=== PATIENT | female | born 1950 | race Caucasian/White ===

== ENCOUNTER 2021-07-11 13:12 | Outpatient (REF) | payer MEDICARE, MEDICAID, SELFPAY ==
--- NOTE | ~2021-07-11 | MM_ITS ---
EXAMINATION: MM SCREENING DIGITAL BREAST TOMOSYNTHESIS, BILATERAL CLINICAL INFORMATION: Screening. Asymptomatic. The lifetime risk of breast cancer based on the Tyrer-Cuzick Model is 3%. COMPARISON: Mammography: 08/01/2018, 07/01/2017, 06/24/2016 TECHNIQUE: Digital breast tomosynthesis is performed in both the craniocaudal and mediolateral oblique views along with computer-aided detection (CAD). Synthesized 2D images are generated from the tomosynthesis. Additional left MLO view is provided. FINDINGS: There are scattered areas of fibroglandular density (ACR BI-RADS breast composition Category b). Parenchymal pattern is similar to prior exams. Parenchymal asymmetries are stable. There is no developing density or interval mass or architectural abnormality. No abnormal calcifications. The axilla and skin contours are unremarkable. MM/MM tomosynthesis screening BI IMPRESSION: No significant changes from prior studies. ASSESSMENT: BI-RADS 2: Benign RECOMMENDATION: Routine annual mammography screening. This patient's information was entered into a reminder system with a target due date for their next mammogram.
== END 2021-07-11 13:13 | disposition home or self-care (01) ==
LOC: HO.MAMMO 13:12
PROVIDERS: Visit Provider Family Medicine
DX: Z12.31 Encounter for screening mammogram for malignant neoplasm of breast (principal)
CPT/HCPCS: 77063; 77067

== ENCOUNTER 2021-12-30 09:35 | Outpatient (REF) | payer OTHER, MEDICAID, SELFPAY ==
--- NOTE | ~2021-12-30 | MR_ITS ---
EXAMINATION: MRI OF THE BRAIN WITHOUT CONTRAST CLINICAL INFORMATION: Mild cognitive impairment. COMPARISON: There are no prior studies available for comparison.. TECHNIQUE: MRI of the brain was obtained using routine sequences without contrast. FINDINGS: No diffusion abnormalities are identified to suggest an acute or subacute infarct. No mass effect or midline shift is seen. There is mild commensurate prominence of the ventricles and sulci consistent with diffuse volume loss. There are scattered areas of T2 and FLAIR hyperintense signal in the periventricular and subcortical white matter, and in the janett consistent with chronic microvascular ischemic changes. 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 No extra-axial fluid collections are seen. The cerebellum appears normal. No pathologic magnetic susceptibility artifact is identified on the gradient refocused acquisition. The craniovertebral junction, marrow signal, and midline structures are normal. There have been bilateral lens extractions. The major intracranial flow-voids at the level of the [place] of [place] are preserved. The dural venous sinus flow-voids are maintained. The mastoid air cells and the paranasal sinuses are well-aerated. MR/MR head/brain wo con IMPRESSION: 1. There are no acute bleeds or territorial infarcts. No masses are demonstrated. 2. 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 There is diffuse volume loss.
== END 2021-12-30 09:36 | disposition home or self-care (01) ==
LOC: HO.MRI 09:35
PROVIDERS: Visit Provider Family Medicine
DX: G31.84 Mild cognitive impairment of uncertain or unknown etiology (principal)
CPT/HCPCS: 70551

== ENCOUNTER 2022-05-21 16:06 | Outpatient (REF) | payer OTHER, MEDICAID, SELFPAY ==
[2022-05-21 17:14] LABS: Vitamin B12 287 pg/mL (200-900)
== END 2022-05-21 16:07 | disposition home or self-care (01) ==
LOC: HO.LAB 16:06
PROVIDERS: Visit Provider Psychiatry & Neurology Neurology
DX: G31.84 Mild cognitive impairment of uncertain or unknown etiology (principal)
CPT/HCPCS: 36415; 82607

== ENCOUNTER 2022-07-13 10:38 | Outpatient (REF) | payer OTHER, MEDICAID, SELFPAY ==
--- NOTE | ~2022-07-13 | MM_ITS ---
EXAMINATION: MM SCREENING DIGITAL BREAST TOMOSYNTHESIS, BILATERAL CLINICAL INFORMATION: Screening. Asymptomatic. COMPARISON: Mammography: 07/11/2021, 08/01/2018, 07/01/2017 TECHNIQUE: Digital breast tomosynthesis is performed in both the craniocaudal and mediolateral oblique views along with computer-aided detection (CAD). Synthesized 2D images are generated from the tomosynthesis. Additional bilateral MLO views are provided. FINDINGS: There are scattered areas of fibroglandular density (ACR BI-RADS breast composition Category b). There are no significant masses, abnormal calcifications, or other abnormalities. There are scattered parenchymal asymmetries similar to prior studies without developing density or interval architectural abnormality. The axilla and skin contours are unremarkable. No significant changes. MM/MM tomosynthesis screening BI IMPRESSION: No mammographic evidence of malignancy. ASSESSMENT: BI-RADS 2: Benign RECOMMENDATION: Routine annual mammography screening. This patient's information was entered into a reminder system with a target due date for their next mammogram.
== END 2022-07-13 10:39 | disposition home or self-care (01) ==
LOC: HO.MAMMO 10:38
PROVIDERS: PCP Family Medicine; Visit Provider Family Medicine
DX: Z12.31 Encounter for screening mammogram for malignant neoplasm of breast (principal)
CPT/HCPCS: 77063; 77067

== ENCOUNTER 2023-09-24 08:21 | Outpatient (REF) | payer OTHER, SELFPAY ==
[2023-09-24 12:13] LABS: Estimated Average Glucose 120 mg/dL; Hemoglobin A1c % 5.8 % (<6.0)
[2023-09-24 12:33] LABS: Alanine Aminotransferase 9 U/L (0-31); Alkaline Phosphatase 81 U/L (39-117); Anion Gap 15 (12-20); Aspartate Amino Transferase 14 U/L (5-31); Bilirubin Total 0.9 mg/dL (0.0-1.0); Blood Urea Nitrogen 16 mg/dL (9-16); Calcium 9.4 mg/dL (8.4-10.2); Carbon Dioxide 29 mmol/L (22-29); Chloride 103 mmol/L (96-108); Cholesterol 187 mg/dL (<200); Estimated Glomerular Filt Rate > 60; Glucose Random 108 mg/dL (60-115); HDL Cholesterol 50 mg/dL (>40); LDL Cholesterol Calculated 97 mg/dL (<100); Potassium 3.8 mmol/L (3.3-5.1); Sodium 143 mmol/L (135-145); Total Protein 7.4 g/dL (6.5-8.0); Triglycerides 201 mg/dL (<150)
[2023-09-24 12:35] LABS: TSH reflex Free T4 2.56 uIU/mL (0.32-4.0)
== END 2023-09-24 08:22 | disposition home or self-care (01) ==
LOC: HO.HHCL 08:21
PROVIDERS: Visit Provider Family Medicine
DX: I10 Essential (primary) hypertension (principal); R73.01 Impaired fasting glucose
CPT/HCPCS: 36415; 80053; 80061; 83036; 84443

== ENCOUNTER 2024-01-13 15:56 | Outpatient (REF) | payer OTHER, SELFPAY | END 2024-01-13 15:57 | disposition home or self-care (01) | LOC: HO.MAMMO 15:56 | PROVIDERS: PCP Family Medicine; Visit Provider Family Medicine | DX: Z12.31 Encounter for screening mammogram for malignant neoplasm of breast (principal) | CPT/HCPCS: 77063; 77067 ==

== ENCOUNTER → 2024-01-13 16:15 | Outpatient (BNV) | payer OTHER, SELFPAY | PROVIDERS: PCP Family Medicine; Visit Provider Radiology Diagnostic Radiology | DX: Z12.31 Encounter for screening mammogram for malignant neoplasm of breast (principal) | CPT/HCPCS: 77063; 77067 ==

== ENCOUNTER 2024-05-09 15:41 | Outpatient (REF) | payer OTHER, SELFPAY ==
[2024-05-09 18:39] LABS: Alanine Aminotransferase 13 U/L (0-31); Albumin Level 3.9 g/dL (3.5-5.0); Alkaline Phosphatase 78 U/L (39-117); Anion Gap 12 (12-20); Aspartate Amino Transferase 18 U/L (5-31); Bilirubin Direct 0.2 mg/dL (0.0-0.5); Bilirubin Total 0.8 mg/dL (0.0-1.0); Blood Urea Nitrogen 12 mg/dL (9-16); Carbon Dioxide 26 mmol/L (22-29); Chloride 108 mmol/L (96-108); Cholesterol 158 mg/dL (<200); Estimated Glomerular Filt Rate > 60; Glucose Random 90 mg/dL (60-115); HDL Cholesterol 50 mg/dL (>40); LDL Cholesterol Calculated 85 mg/dL (<100); Potassium 3.5 mmol/L (3.3-5.1); Sodium 142 mmol/L (135-145); Total Protein 6.8 g/dL (6.5-8.0); Triglycerides 116 mg/dL (<150)
[2024-05-09 18:55] LABS: TSH reflex Free T4 2.15 uIU/mL (0.32-4.0)
[2024-05-09 20:30] LABS: Reflex LDLD? No
[2024-05-10 05:17] LABS: Estimated Average Glucose 128 mg/dL; Hemoglobin A1c % 6.1 % (<6.0)
== END 2024-05-09 15:42 | disposition home or self-care (01) ==
LOC: HO.HHCL 15:41
PROVIDERS: Visit Provider Family Medicine
DX: E78.5 Hyperlipidemia, unspecified (principal); I10 Essential (primary) hypertension; Z13.1 Encounter for screening for diabetes mellitus; I48.0 Paroxysmal atrial fibrillation
CPT/HCPCS: 36415; 80053; 80061; 82248; 83036; 84443

== ENCOUNTER 2024-11-16 11:35 | Outpatient (REF) | payer OTHER, SELFPAY ==
[2024-11-16 13:46] LABS: Alanine Aminotransferase 13 U/L (0-31); Albumin Level 4.2 g/dL (3.5-5.0); Alkaline Phosphatase 98 U/L (39-117); Anion Gap 12 (12-20); Aspartate Amino Transferase 21 U/L (5-31); Bilirubin Total 1.7 mg/dL (0.0-1.0); Blood Urea Nitrogen 18 mg/dL (9-16); Calcium 9.3 mg/dL (8.4-10.2); Carbon Dioxide 29 mmol/L (22-29); Chloride 104 mmol/L (96-108); Cholesterol 118 mg/dL (<200); Estimated Glomerular Filt Rate > 60; Glucose Random 119 mg/dL (60-115); HDL Cholesterol 56 mg/dL (>40); LDL Cholesterol Calculated 45 mg/dL (<100); Potassium 3.2 mmol/L (3.3-5.1); Sodium 142 mmol/L (135-145); Total Protein 7.8 g/dL (6.5-8.0); Triglycerides 89 mg/dL (<150)
[2024-11-16 14:10] LABS: Reflex LDLD? No
== END 2024-11-16 11:36 | disposition home or self-care (01) ==
LOC: HO.HHCL 11:35
PROVIDERS: Visit Provider Family Medicine
DX: E78.5 Hyperlipidemia, unspecified (principal)
CPT/HCPCS: 36415; 80053; 80061

== ENCOUNTER 2024-11-27 12:11 | Outpatient (REF) | payer OTHER, SELFPAY ==
--- OUTSIDE RECORDS SUMMARY | 2024-11-27 13:51 | XMS_ITS | Encounter Summary ---
Author Organization [employer] Address [address] [place] [address] Care Team Providers Care Senior Business Manager Name Role Phone Lisa Hagen MD Primary Care Provider [phone] Selwyn Crowley PharmD Unavailable [phone] Reason for Visit * Reason Onset Date Comments Results 11/27/2024 Lab Orders 11/27/2024 Encounter Details Date Type Department Care Team (Late st Contact Info) Description 11/27/2024 Telephone [facility] [address] [place] [address] Anneliese Hunter, RN [address], [place] [id number] Results; Lab Orders Social History Tobacco Use Types Packs/Day Years Used Date Smoking Tobacco: Never Passive Smoke Exposure: Never Smokeless Tobacco: Never Depression Answer Date Recorded Patient Health Questionnaire-9 Score 0 08/10/2024 Patient Health Questionnaire-9 Score 0 08/10/2024 Last PHQ-9: Questionnaire Data Not on file 1 10/11/2023 Housing Stability Answer Date Recorded What is your housing situation today? I have [employer] [facility] 01/11/[address] you li ve. Do you have problems with any of the following? None of the above 01/11/2024 Food Insecurity Answer Date Recorded Within the past 12 months, y ou worried that your food would run out before you got money to buy more: Never True 01/11/2024 Within the past 12 months,th e food you bought just didn't last and you didn't have enough money to get more: Never True Transportation Answer Date Recorded In the past 12 months, has l ack of transportation kept you from medical appts, meetings, work or from getting things needed for daily living? No 01/11/2024 Utilities Answer Date Recorded In the past 12 months, has t he electric, gas, oil or water company threatened to shut off services in your home? No 01/11/2024 Depression Answer Date Recorded Patient Health Questionnaire-2 Score 0 08/10/2024 Comments No Sex and Gender Information Value Date Recorded Sex Assigned at Female 06/29/2022 10:16 AM EDT Legal Sex Female 10:16 AM EDT Gender Identity Female 06/29/2022 10:16 AM EDT Sexual Orientation Straight 06/29/2022 10 :16 AM EDT documented as of this encounter Miscellaneous Notes * Telephone Encounter - Anneliese Hunter RN - 11/27/2024 10:02 AM EDT Telephone call placed to number on file regarding below results and POC. Pt's son-in-law answered. Informed that he is not authorized on HIPAA. He was very upset about this. Handed phone to his spouse who is emergency contact for pt and okay to speak to per PCP. Informed that pt needs repeat labs d/t low potassium. Advised increased intake of potassium rich foods like avocados, tomatoes, bananas,etc. Advised to come to the lab this week. Daughter Cindi inquiring about who is on HIPAA, she wantsher sisters listed as well as her . Advised when they bring pt for labs, come up to green team and fill out new HIPAA form with everyone pt agrees to have added. Cindi verbalized understanding and denied having any further questions or concerns at this time. * Telephone Encounter - Anneliese Hunter RN - 11/27/2024 9:51 AM EDT ----- Message from Lisa Hagen MD sent at 11/27/2024 9:44 AM EDT ----- Please ask patient's family that her potassium was slightly low, likely due to medication. Please ask her to have another lab on their convenience. Thank you. documented in this encounter Plan of Treatment Not on file documented as of this encounter Goals Goal Patient Goal Type Associated Problems Recent Progress Patient-Stated? Author Blood Pressure < 150/90 Blood Pressure 124/72(2024 11:01 AM EDT) No Selwyn Crowley, Vinicius Note: >60 years old without Hx of CKD or DM documented as of this encounter Visit Diagnoses Not on filedocumented in this encounter Additional Health Concerns Assessment Noted Time PHQ-9 Depression Total Score: 0 08/10/20 24 10:16 AM EST documented as of this encounter Care Teams Senior Business Manager Relationship Specialty Start Date End Date Lisa Hagen MD [address] [place] [address] PCP - General Family Medicine 08/11/12 Selwyn Crowley, PharmD [address] [place] [id number] Pharmacist Internal Medicine 11/06/22 documented as of this encounter
--- OUTSIDE RECORDS SUMMARY | 2024-11-27 13:51 | XMS_ITS | Clinical Summary ---
Author Organization [employer] Address [address] [place] [address] Care Team Providers Care Nurse Charge Rn Name Role Phone Luis Eduardo Hagen MD Primary Care Provider [phone] Selwyn Crowley PharmD Unavailable Allergies Active Allergy Reactions Criticality Noted Date Comments Clarithromycin Hives High 09/26/2014 Hylan G-F 20 Hives High 07/15/2015 Lisinopril 04/07/2013 Medications * This document contains information received from the source organization and may not represent a complete record from that organization. donepezil (Aricept) 10 MG tablet Take 10 mg by mouth at bedtime. 06/17/20 22 Active Xarelto 20 MG tablet Take 20 mg by mouth in the morning. 07/17/20 22 Active Acetaminophen Extra Strength 500 MG tablet TAKE 2 TABLETS BY MOUTH EVERY 8 HOURS NEEDED FOR PAIN 180 tablet 2 10/01/19 24 Active memantine (Namenda) 10 MG tablet TAKE 1 TABLET BY MOUTH ONCE DAILY FOR 3 WEEKS THEN INCREASE TO 1 TABLET TWICE DAILY 10/04/19 24 Active metoprolol succinate XL (Toprol-XL) 50 MG 24 hr tablet TAKE 1 TABLET BY MOUTH EVERY MORNING 08/27/20 23 Active cyclobenzaprine (Flexeril) 10 MG tabletIndication s:Muscle spasm TAKE 1 TABLET BY MOUTH EVERY DAY 30 tablet 3 02/07/20 24 Active bumetanide (Bumex) 0.5 MG tablet Take 1 tablet (0.5 mg) by mouth Once per day. 30 tablet 11 05/09/20 24 025 Active sertraline (Zoloft) 50 MG tablet Take 50 mg by mouth Once per day. 04/05/20 24 Active atorvastatin (Lipitor) 20 MG tablet Take 1 tablet (20 mg) by mouth at bedtime. 90 tablet 3 08/10/20 24 025 Active chlorthalidone (Hygroton) 25 MG tabletIndication s:Primary hypertension TAKE 1 TABLET BY MOUTH EVERY MORNING 30 tablet 11 08/14/20 24 Active D3-1000 25 MCG (1000 UT) capsuleIndicatio ns:Vitamin D deficiency TAKE 1 CAPSULE BY MOUTH EVERY MORNING 30 capsule 11 11/09/19 25 Active cholecalciferol (Vitamin D High Potency) 25 MCG (1000 UT) capsuleIndicatio ns:Vitamin D deficiency Take 1 capsule (25 mcg) by mouth in the morning. 30 capsule 11 10/19/19 24 025 Discontinued Active Problems Problem Noted Date Diagnosed Date Ascending aorta dilation 05/09/2024 Assessment & Plan (11/17/2024 8:06 PM EDT): - Following with [facility] - Last transthoracic echocardiogram: 04/11/24. Maximum diameter of ascending aorta 43 mm - Next echo in 1 year - optimize risk factor management Assessment & Plan (08/12/2024 4:22 PM EST): - Following with [facility] - Last transthoracic echocardiogram: 04/11/24. Maximum diameter of ascending aorta 43 mm - Next echo in 1 year - optimize risk factor management Assessment & Plan (05/09/2024 5:32 AM EDT): - Following with [facility] - Last transthoracic echocardiogram: 04/11/24. Maximum diameter of ascending aorta 43 mm - Next echo in 1 year - optimize risk factor management (HFpEF) heart failure with preserved ejection fr action 05/09/2024 Assessment & Plan (11/17/2024 8:06 PM EDT): - Most recent echo: 04/11/24 Moderate concentric LVH, Left ventricular systolic EF 50-55%, mild thickening of anterior mitral valve, Ascending aorta 4.3 cm. Normal right ventricular systolic function. - Encourage CPAP use - Recommended to check her weight and vitals daily - Consider SGLT2i and/or MRA (taper down and off chlorthalidone or bumetanide, consider switching to carvedilol) Assessment & Plan (08/12/2024 4:35 PM EST): - Most recent echo: 04/11/24 Moderate concentric LVH, Left ventricular systolic EF 50-55%, mild thickening of anterior mitral valve, Ascending aorta 4.3 cm. Normal right ventricular systolic function. - Encourage CPAP use - Recommended to check her weight and vitals daily - Consider SGLT2i and/or MRA (taper down and off chlorthalidone or bumetanide, consider switching to carvedilol) Assessment & Plan (05/15/2024 6:22 AM EDT): - Most recent echo: 04/11/24 Moderate concentric LVH, Left ventricular systolic EF 50-55%, mild thickening of anterior mitral valve, Ascending aorta 4.3 cm. Normal right ventricular systolic function. - Encourage CPAP use - Recommended to check her weight and vitals daily Dyslipidemia 01/18/2024 Assessment & Plan (11/19/2024 4:40 PM EDT): - last lipid profile October 2024 - moderate intensity statin therapy is recommended per guideline - continue atorvastatin 20 mg at bedtime, consider increasing to 40 mg daily as tolerated - continue working on lifestyle modifications Assessment & Plan (08/12/2024 4:31 PM EST): - last lipid profile August 2023 - moderate intensity statin therapy is recommended per guideline - increase atorvastatin 20 mg at bedtime, consider increasing to 40 mg daily as tolerated - continue working on lifestyle modifications Assessment & Plan (05/15/2024 6:20 AM EDT): - last lipid profile August 2023 - moderate intensity statin therapy is recommended per guideline - continue atorvastatin 10 mg at bedtime, consider increasing its dose due to her risk factors - continue working on lifestyle modifications Assessment & Plan (01/18/2024 3:53 PM EDT): - last lipid profile August 2023 - moderate intensity statin therapy is recommended per guideline - start atorvastatin 10 mg at bedtime, will check lab before next appointment - continue working on lifestyle modifications Headache 10/01/2023 Assessment & Plan (05/15/2024 6:16 AM EDT): - in a setting of ERA - possible medication side effect - Normal MRI in 2021 - Check the status of next follow up with neurologist and [facility] provider - Continue APAP prn Assessment & Plan (01/18/2024 3:39 PM EDT): - in a setting of ERA - possible medication side effect - Normal MRI in 2021 - Check the status of next follow up with neurologist and [facility] provider - Continue APAP prn Assessment & Plan (10/01/2023 11:36 AM EST): - in a setting of ERA - possible medication side effect - Normal MRI in 2021 - Check the status of next follow up with neurologist and [facility] provider - Continue APAP prn Mixed stress and urge urinary incontinence 03/26 Assessment & Plan (01/25/2024 10:51 AM EDT): - pt is using incontinence supply - will renew her previous prescription Assessment & Plan (03/26/2023 6:40 AM EDT): - pt is using incontinence supply Depression 03/26/2023 Assessment & Plan (08/12/2024 4:32 PM EST): - 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 - continue sertraline 50 mg daily - increase TEST PILOT hours to prevent isolation Assessment & Plan (05/15/2024 6:20 AM EDT): - 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 -continue metoprolol succinate 50 mg daily -continue chlorthalidone 25 mg daily -continue bumetanide 0.5 mg daily for edema and hypertension; consider titrating up and discontinuing chlorthalidone. Treatment Hx: Previously tried amlodipine which was discontinued due to swelling, losartan was discontinued due to pt's concern about recall, lisinopril was discontinued due to cough. Diltiazem 180 mg daily was discontinued and metoprolol was started by compressor mechanic bus in 2022. Bumetanide was added in Apr 2024 Graduated from [facility] - HTN Assessment & Plan (08/10/2024 6:05 AM EST): -Goal BP < 130/80 per ACC/AHA guideline (Treatment threshold >= 130) -BP at JNC-8 goal today -co-managed with compressor mechanic bus and previously our pharmacist -continue working on lifestyle modification. -continue metoprolol succinate 50 mg daily -continue chlorthalidone 25 mg daily -continue bumetanide 0.5 mg daily for edema and hypertension; consider titrating up and discontinuing chlorthalidone. Treatment Hx: Previously tried amlodipine which was discontinued due to swelling, losartan was discontinued due to pt's concern about recall, lisinopril was discontinued due to cough. Diltiazem 180 mg daily was discontinued and metoprolol was started by compressor mechanic bus in 2022. Bumetanide was added in Apr 2024 Graduated from [facility] - HTN Assessment & Plan (05/15/2024 6:18 AM EDT): -Goal BP < 150/90 per JNC-8 and < 130/80 per ACC/AHA guideline (Treatment threshold >= 130) -BP at JNC-8 goal today -continue working on lifestyle modification. -continue diltiazem 180 mg daily -continue chlorthalidone 25 mg daily - add bumetanide 0.5 mg daily for edema and hypertension; consider titrating up and discontinuing chlorthalidone. -seen by Selwyn Crowley, [facility] on 10/25/23 for CDTM - HTN Treatment Hx: Previously tried amlodipine which was discontinued due to swelling, losartan was discontinued due to pt's concern about recall, lisinopril was discontinued due to cough --Follow-up in 3 months or sooner if any problem arises Assessment & Plan (01/18/2024 5:01 PM EDT): -Goal BP < 150/90 per JNC-8 and < 130/80 per ACC/AHA guideline (Treatment threshold >= 130) -BP at JNC-8 goal today -continue working on lifestyle modification. -continue diltiazem 180 mg daily -continue [facility]orthalidone 25 mg daily [facility]N Treatment Hx: Previously tried amlodipine which was discontinued due to swelling, losartan was discontinued due to pt's concern about recall, lisinopril was discontinued due to cough --Follow-up in 3 months or sooner if any problem arises Assessment & Plan (10/01/2023 11:25 AM EST): -Goal BP < 150/90 per JNC-8 and < 130/80 per ACC/AHA guideline (Treatment threshold >= 130) -BP at JNC-8 goal today -continue working on lifestyle modification. -continue diltiazem 180 mg daily -continue [facility]lorthalidone 25 mg daily [facility] - HTN Treatment Hx: Previously tried amlodipine which was discontinued due to swelling, losartan was discontinued due to pt's concern about recall, lisinopril was discontinued due to cough --Follow-up in 3 months or sooner if any problem arises Assessment & Plan (03/26/2023 6:45 AM EDT): -Goal BP < 150/90 per JNC-8 and < 130/80 per ACC/AHA guideline (Treatment threshold >= 130) -BP at JNC-8 goal today -continue working on lifestyle modification. -continue diltiazem 180 mg daily -continue chlorthalidone 25 mg daily [facility]N Previously tried amlodipine which was discontinued due to swelling, losartan was discontinued due to pt's concern about recall, lisinopril was discontinued due to cough --Follow-up in 3 months or sooner if any problem arises Assessment & Plan (11/22/2022 7:11 AM EDT): -Goal BP < 150/90 per JNC-8 and < 130/80 per ACC/AHA guideline (Treatment threshold >= 130) -BP at JNC-8 goal today -continue working on lifestyle modification. -continue diltiazem 180 mg daily -continue chlorthalidone 25 mg daily -seen by Selwyn Crowley, [facility] on 11/06/22 for CDTM - HTN Previously tried amlodipine which was discontinued due to swelling, losartan was discontinued due to pt's concern about recall, lisinopril was discontinued due to cough --Follow-up in 3 months or sooner if any problem arises ERA (obstructive sleep apnea) 08/09/2022 Assessment & Plan (11/19/2024 4:33 PM EDT): - Sleep study on 06/08/22 at [facility] showed ERA. AutoPAP 8-20 cm H2O was recommended. - Seen by Dr. Cavazos on 02/03/23, [facility] diamond die maker. Recommended CPAP. - Patient was not interested in using CPAP - Will prescribe it again. Assessment & Plan (08/12/2024 4:21 PM EST): - Sleep study on 06/08/22 at [facility] showed ERA. AutoPAP 8-20 cm H2O was recommended. - Seen by Dr. Cavazos on 02/03/23, [facility] diamond die maker. Recommended CPAP. - Patient is not interested in using CPAP Assessment & Plan (05/15/2024 6:15 AM EDT): - Sleep study on 06/08/22 at [facility] showed ERA. AutoPAP 8-20 cm H2O was recommended. - Seen by Dr. Cavazos on 02/03/23 Assessment & Plan (10/01/2023 11:24 AM EST): - Sleep study on 06/08/22 at [facility] showed ERA. AutoPAP 8-20 cm H2O was recommended. - Seen by Dr. Cavazos on 02/03/23 - Called [facility], the office states the order was delayed, but the script has already been received by CPAP supplier Assessment & Plan (03/26/2023 6:49 AM EDT): - Sleep study on 06/08/22 at [facility] showed ERA. AutoPAP 8-20 cm H2O was recommended. - Seen by Dr. Cavazos on 02/03/23 - [facility] the office states the order was delayed, but the script has already been received by CPAP supplier Assessment & Plan (11/22/2022 7:13 AM EDT): Sleep study on 06/08/22 at [facility] showed ERA. AutoPAP 8-20 cm H2O was recommended. Pt does not have CPAP. Will check the status Her HALEY may improve with CPAP use Paroxysmal atrial fibrillation 08/09/2022 Assessment & Plan (11/19/2024 4:37 PM EDT): -Followed by [facility] - [id number] Score: 4 -Currently on Rivaroxaban (Xarelto) for anticoagulation -Metoprolol for BP and rate control -Continue current medications -Most recent echo: 04/11/24 Moderate concentric LVH, Left ventricular systolic EF 50-55%, mild thickening of anterior mitral valve, normal RV and RA -Encouraged to use CPAP, but patient is not enthusiastic Assessment & Plan (08/10/2024 6:12 AM EST): -Followed by [facility] -[id number] Score: 4 -Currently on Rivaroxaban (Xarelto) for anticoagulation -Metoprolol for BP and rate control -Continue current medications -Most recent echo: 04/11/24 Moderate concentric LVH, Left ventricular systolic EF 50-55%, mild thickening of anterior mitral valve, normal RV and RA -Encouraged to use CPAP, but patient is not enthusiastic Assessment & Plan (05/15/2024 6:17 AM EDT): -Followed by [facility] -Currently on Rivaroxaban (Xarelto) for anticoagulation -Diltiazem for BP and rate control -Continue current medications -Most recent echo: 04/11/24 Moderate concentric LVH, Left ventricular systolic EF 50-55%, mild thickening of anterior mitral valve, normal RV and RA -Encouraged to use CPAP, but patient is not enthusiastic Assessment & Plan (01/18/2024 3:39 PM EDT): -Followed by [facility] -Currently on Rivaroxaban (Xarelto) for anticoagulation -Diltiazem for BP and rate control -Continue current medications -Encouraged to use CPAP once she receives the supply Assessment & Plan (10/01/2023 11:26 AM EST): -Followed by [facility] -Currently on Rivaroxaban (Xarelto) for anticoagulation -Diltiazem for BP and rate control -Continue current medications -Encouraged to use CPAP once she receives the supply Assessment & Plan (03/26/2023 6:51 AM EDT): -Followed by Dr. Palomo at [facility] on 03/16/22. -Currently on Rivaroxaban (Xarelto) for anticoagulation -Diltiazem for BP and rate control -Continue current medications -Encouraged to use CPAP once she receives the supply Assessment & Plan (11/17/2022 2:50 PM EDT): Completed Stress-Test and Echocardiogram -Followed by Dr. Palomo at [facility] on 03/16/22. -Pt was found to have paroxysmal atrial fibrillation and was started on Rivaroxaban (Xarelto) -Dr. Palomo ordered a Sleep Study Alzheimer's dementia 08/09/2022 Assessment & Plan (11/19/2024 4:33 PM EDT): - following with neurologist, Dr. Leavitt, last seen on 07/06/24 - 12/30/21 MRI no acute infarct or mass. Chronic microvascular ischemic change. Diffuse volume loss. - currently prescribed sertraline 10 mg daily, memantine 10 mg bid, and sertraline 50 mg daily - patient is socially withdrawn. - we discussed about several non-pharmacological approaches, and encouraged to keep her socially interactive - her family members would like to have more TEST PILOT hours because patient currently has 17 hours per week, and it is not adequate to take care of the patient. She is alone when TEST PILOT leaves. Patient will benefit from more TEST PILOT services to prevent social isolation and to improve safety by increasing supervised hours. Assessment & Plan (08/12/2024 4:30 PM EST): >>ASSESSMENT AND PLAN FOR MILD COGNITIVE IMPAIRMENT WRITTEN ON 11/17/2022 2:51 PM BY LAWSON REYES -12/30/21 MRI no acute infarct or mass. Chronic microvascular ischemic change. Diffuse volume loss. -Seen by Neurologist -was Rx'd Sertraline and Donepezil Assessment & Plan (08/12/2024 4:30 PM EST): >>ASSESSMENT AND PLAN FOR MILD COGNITIVE IMPAIRMENT WRITTEN ON 03/26/2023 6:47 AM BY LUIS EDUARDO HAGEN MD -12/30/21 MRI no acute infarct or mass. Chronic microvascular ischemic change. Diffuse volume loss. 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 Chronic microvascular ischemic change. Diffuse volume loss. 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 Assessment & Plan (08/12/2024 4:30 PM EST): >>ASSESSMENT AND PLAN FOR MILD COGNITIVE IMPAIRMENT WRITTEN ON 01/18/2024 3:39 PM BY RAMONA NAJERA -12/30/21 MRI no acute infarct or mass. Chronic microvascular ischemic change. Diffuse volume loss. 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 Assessment & Plan (08/12/2024 4:30 PM EST): >>ASSESSMENT AND PLAN FOR MILD COGNITIVE IMPAIRMENT WRITTEN ON 05/09/2024 5:37 AM BY LUIS EDUARDO HAGEN MD -12/30/21 MRI no acute infarct or mass. Chronic microvascular ischemic change. Diffuse volume loss. 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 Assessment & Plan (08/12/2024 4:34 PM EST): - following with neurologist, Dr. Leavitt, last seen on 07/06/24 - 12/30/21 MRI no acute infarct or mass. Chronic microvascular ischemic change. Diffuse volume loss. - currently prescribed sertraline 10 mg daily, memantine 10 mg bid, and sertraline 50 mg daily - patient is socially withdrawn. - we discussed about several non-pharmacological approaches, and encouraged to keep her socially interactive - her family members would like to have more TEST PILOT hours because patient currently has 17 hours per week, and it is not adequate to take care of the patient. She is alone when TEST PILOT leaves. Patient will benefit from more TEST PILOT services to prevent social isolation and to improve safety by increasing supervised hours. History of cholecystectomy 09/11/2014 Osteoarthritis of knees, bilateral 10/25/2012 Assessment & Plan (05/15/2024 6:19 AM EDT): s/p Right TKR in Apr 2016. s/p Left TKR on 04/28/18 Orthopedist: [facility] -Continue judicious use of analgesics. -Previously received physical therapy Assessment & Plan (03/26/2023 6:44 AM EDT): s/p Right TKR in Apr 2016. s/p Left TKR on 04/28/18 Orthopedist: VICKI -Continue judicious use of analgesics. -Previously received physical therapy Assessment & Plan (11/17/2022 2:42 PM EDT): s/p Right TKR in Apr 2016. s/p Left TKR on 04/28/18 Orthopedist: VICKI -Continue judicious use of analgesics. -Continue physical therapy. -Not following with Orthopedist or any Specialists Insomnia 10/25/2012 Lumbar spondylosis 10/25/2012 Obesity 10/25/2012 Assessment & Plan (11/19/2024 4:39 PM EDT): - discussed about GLP-1 RA; patient is not interested Continue working on lifestyle modifications. Generic advice as below. Modify for individualized plan and work on your health goal. Dietary Recommendations: Fruits, vegetables, whole grains, protein foods, and fat-free or low-fat dairy products are healthy choices. Eat different types of protein foods in your diet. This can include seafood, lean meats, poultry, beans, peas, lentils, nuts, seeds, soy products, and eggs. Limit foods and beverages higher in added sugars, saturated fat, and sodium. Exercise Recommendations: At least 150 minutes of moderate-intensity physical activity per week, or an equivalent combination of moderate- and vigorous-intensity activity Assessment & Plan (08/13/2024 11:17 AM EST): - discussed about GLP-1 RA; patient is not interested - she has gained significant amount of weight over last 3 years - check TSH - will write a script for a scale so that she can check her weight Assessment & Plan (05/15/2024 6:21 AM EDT): - discussed about GLP-1 RA; patient is not interested - she has gained significant amount of weight over last 3 years - check TSH - will write a script for a scale so that she can check her weight Endocervical polyp 03/19/2010 Impaired fasting glucose Assessment & Plan (11/17/2024 8:08 PM EDT): -Hgb A1C 6.1% on 05/09/24 -continue lifestyle modifications -recheck in 12 months Assessment & Plan (08/12/2024 4:23 PM EST): -Hgb A1C 5.8% on 01/18/24 -continue lifestyle modifications -recheck in 12 months Assessment & Plan (01/18/2024 5:01 PM EDT): -Hgb A1C 5.8% on 01/18/24 -continue lifestyle modifications -recheck in 12 months Assessment & Plan (10/01/2023 11:26 AM EST): -Hgb A1C 5.6% on 11/17/22, improved from 6.0% on 11/18/21 -continue lifestyle modifications -recheck in 12 months Assessment & Plan (03/26/2023 6:44 AM EDT): -Hgb A1C 5.6% on 11/17/22, improved from 6.0% on 11/18/21 -continue lifestyle modifications -recheck in 12 months Assessment & Plan (11/17/2022 2:43 PM EDT): -HbA1C 6.0% on 11/18/21 -continue lifestyle modifications -recheck in 6 months prior to next visit Resolved Problems Problem Noted Date Diagnosed Date Resolved Date Primary osteoarthritis of both knees 07/15/2015 03/26/2023 Essential hypertension 07/15/201503/26 Encounters Date Type Department Care Team Description 11/27/2024 Telephone [facility] [place] [address] Anneliese Hunter, RN Results; Lab Orders 11/27/2024 Orders Only [facility] [place] [address] Luis Eduardo Hagen MD Low serum potassium (Primary Dx) 11/20/2024 Telephone [facility] [place] [address] Anneliese Hunter, RN Care Coordination 11/16/2024 11:00 AM EDT Office Visit [facility] [place] [address] Luis Eduardo Hagen MD Primary hypertension (Primary Dx); Paroxysmal atrial fibrillation (CMS/HCC); Ascending aorta dilation (CMS/HCC); Chronic heart failure with preserved ejection fraction (CMS/HCC); Impaired fasting glucose; Dyslipidemia; Dietary counseling; Exercise counseling; Class 1 obesity due to excess calories with serious comorbidity and body mass index (BMI) of 34.0 to 34.9 in adult; ERA (obstructive sleep apnea); Alzheimer's dementia, unspecified dementia severity, unspecified timing of dementia onset, unspecified whether behavioral, psychotic, or mood disturbance or anxiety (CMS/HCC); Insomnia, unspecified type 11/16/2024 Travel 11/15/2024 Telephone [facility] [address] [place] [address] Luis Eduardo Hagen MD chart prep 11/07/2024 Refill [facility] [address] [place] [address] Luis Eduardo Hagen MD Vitamin D deficiency from Last 3 Months Immunizations Name Administration Dates Next Due Influenza Injectable Quadriv alant Preservative Free IIV4 MDCK 07/12/2021 Pfizer Covid-19 Vaccine 12+ 11/02/2023 Pneumococcal Conjugate PCV 13 05/11/2016 Pneumococcal Polysaccharide PPSV23 11/18/2021 RSV Bivalent 11/15/2023 TD (adult), 2 Lf tetanus tox oid, preservative free, adsorbed 03/31/2002 Tdap 05/11/2016 Varicella 09/07/2007 Zoster, Recombinant 01/19/2022,11/18/2021 Zoster, live 04/20/2016 Family History Medical History Relation Name Comments Coronary artery disease Brother Diabetes type II Brother Hypertension Brother Diabetes type II Mother Kidney disease Sister Relation Name Status Comments Brother Mother Sister Social History Tobacco Use Types Packs/Day Years Used Date Smoking Tobacco: Never Passive Smoke Exposure: Never Smokeless Tobacco: Never Tobacco Cessation:Counseling Given: Not Answered Depression Answer Date Recorded Patient Health Questionnaire-9 [...] Orientation Straight 06/29/2022 10 :16 AM EDT Last Filed Vital Signs Vital Sign Reading Time Taken Comments Blood Pressure 124/72 11/16/2024 11:01 AM EDT Pulse 70 11/16/2024 11:01 AM EDT Temperature 36.1 ??C (96.9 ??F) 11/16/2024 11:01 AM E DT Respiratory Rate 14 11/16/2024 11:01 AM EDT Oxygen Saturation 94% 11/16/2024 11:01 AM EDT Inhaled Oxygen Concentration - - Weight 102 kg (225 lb) 11/16/2024 11:01 AM EDT Height 172.7 cm (5' 8 ) 11/16/2024 11:01 AM EDT Body Mass Index 34.21 11/16/2024 11:01 AM EDT Plan of Treatment Health Maintenance Due Date Last Done Comments CT Colonography 1950 FIT DNA/Cologuard 1950 FIT 1950 FOBT 1950 Sigmoidoscopy 1950 COVID-19 Vaccine ( season) 2024 11/02/2023, 03/12/2022, 07/30/2021, Additional history exists Influenza Vaccine (#1) 2024 07/12/2021 SDOH Screening 01/10/2025 01/11/2024 Diabetes: Hemoglobin A1C 05/09/2025 024, 09/24/2023, 11/17/2022, Additional history exists Alcohol/Substance Use Screening 08/10/2025 08/10/2024 Depression Screening 08/10/2025 08/10/2024, 08/10/20 24 Tobacco Screening 11/19/2025 11/19/2024 Mammogram 01/12/2026 01/13/2024, 06/30, 07/11/2021, Additional history exists DTaP/Tdap/Td Vaccines (2 - Td or Tdap) 05/11/2026 05/11/2016, 03/31/2002 Colonoscopy 10/08/2027 10/08/2017 Colorectal Cancer Screening 10/08/2027 Lipid Panel 11/16/2029 11/16/2024, 04/30, 09/24/2023, Additional history exists Pneumococcal Vaccine: 50+ Years Completed 11/18/2021, 05/11/2016 Zoster Vaccines Completed 01/19/2022, 10/29, 04/20/2016 RSV Patients and Patients Aged 60 years or older Completed 11/15/2023 HIB Vaccines Aged Out No longer eligi ble based on patient's age to complete this topic HPV Vaccines Aged Out No longer eligi ble based on patient's age to complete this topic Hepatitis A Vaccines Aged Out No long er eligible based on patient's age to complete this topic Hepatitis B Vaccines Aged Out No long er eligible based on patient's age to complete this topic Hepatitis C Screening Discontinued IPV Vaccines Aged Out No longer eligi ble based on patient's age to complete this topic Meningococcal Vaccine Aged Out No nicole manuel eligible based on patient's age to complete this topic RSV under 20 months Aged Out No longe r eligible based on patient's age to complete this topic Rotavirus Vaccines Aged Out No longer eligible based on patient's age to complete this topic Goals Goal Patient Goal Type Associated Problems Recent Progress Patient-Stated? Author Blood Pressure < 150/90 Blood Pressure 124/72(2024 11:01 AM EDT) Selwyn Massey, PharmD Note: >60 years old without Hx of CKD or DM Procedures Procedure Name Priority Date/Time Associated Diagnosis Comments LIPID PANEL WITH REFLEX TO DIRECT LDL Routine 11/16/2024 11:39 AM EDT Dyslipidemia COMPREHENSIVE METABOLIC PANEL Routine 11/16/2024 11:39 AM EDT Dyslipidemia HEMOGLOBIN A1C Routine 05/09/2024 3:45 PM EDT Screening for diabetes mellitus BI MAMMOGRAM SCREENING TOMOSYNTHESIS BILATERAL Routine 01/13/2024 4:10 PM EDT HM COLONOSCOPY Routine 10/08/2017 from Last 3 Months or Most Recently Relevant to Health Maintenance Results * Lipid Panel with Reflex to Direct LDL (11/16/2024 11:39 AM EDT) Triglycerides 89 <150 mg/dL [facility] Comment:Desirable Triglyceri de: less than 150 mg/dLBorderline High Triglyceride 150-199 mg/dLHigh Triglyceride: 200-499 mg/dLVery High Triglyceride: greater than or equal to 5OO mg/dL Cholesterol 118 <200 mg/dL [facility] Comment:Desirable Cholestero l: less than 200 mg/dLBorderline High Cholesterol: 200-239 mg/dLHigh Cholesterol: greater than 239 mg/dL LDL Cholesterol Calculated 45 <100 mg/dL [facility] Comment:Desirable LDL: less than 100 mg/dLNear Optimal/Above Optimal LDL: 110- 129 mg/dLBorderline High LDL: 130-159 mg/dLHigh LDL: 160-189 mg/dLVery High LDL: greater than or equal to 190 mg/dL HDL Cholesterol 56 >40 mg/dL [facility] Comment:Desirable HDL: great er than 40 mg/dL Note: This HDL assay may give artificially low results in patients with liver disease. Blood 11/16/2024 11:3 9 AM EDT 11/16/2024 1:04 PM EDT us Luis Eduardo Hagen MD LAB BLOOD ORDERABLES Final Resul t [facility] [address] [place] [address] [phone] * (ABNORMAL) Comprehensive Metabolic Panel (11/16/2024 11:39 AM EDT) Sodium 142 135 - 145 mmol/L [facility] Potassium 3.2(L) 3.3 - 5.1 mmol/L [facility] Chloride 104 96 - 108 mmol/L [facility] Carbon Dioxide 29 22 - 29 mmol/L [facility] Anion Gap 12 12 - 20 [facility] Urea Nitrogen (BUN) 18(H) 9 - 16 mg/dL [facility] Creatinine, Serum 0.73 0.5 - 1.4 mg/dL [facility] Estimated Glomerular Filt Rate >60 [facility] Comment:Chronic Kidney Disea se: Estimated GFR < 60 mL/min/[id number] Kidney Disease: Estimated GFR < 15 mL/min/1.73m2 Glucose 119(H) 60 - 115 mg/dL [facility] Calcium 9.3 8.4 - 10.2 mg/dL [facility] Bilirubin, Total 1.7(H) 0.0 - 1.0 mg/dL [facility] Aspartate Amino Transferase 21 5 - 31 U/L [facility] Alanine Aminotransferase 13 0 - 31 U/L [facility] Total Protein 7.8 6.5 - 8.0 g/dL [facility] Albumin Level 4.2 3.5 - 5.0 g/dL [facility] Alkaline Phosphatase 98 39 - 117 U/L [facility] Blood Venous blood specimen / Unknown 11/16/2024 11:39 AM EDT 11/16/2024 1:04 PM EDT Luis Eduardo Hagen MD LAB BLOOD ORDERABLES Final Resul t Performing Organization Address City/[facility] de Phone Number [facility] [address] [place] [address] [phone] * (ABNORMAL) Hemoglobin A1c (05/09/2024 3:45 PM EDT) Hemoglobin A1c 6.1(H) <6.0 % [facility] Comment:Hemoglobin A1C Refer ence Range Adults: 4.8 - 6.0 % Non diabetic: < 6.0 % Goal: < 7.0 %Additional Action Suggested: > 8.0 %Note: Hemoglobin A1c results are invalid for patients with abnormal amounts of HbF. Blood transfusions may impact the HbA1c concentration in the patient sample. Estimated Average Glucose 128 mg/dL [facility] Comment:eAG = Estimated ave rage glucose which is %A1C expressed asaverage glucose, using the formula of the T1D-WidjcyxHkhubxo Glucose study (ADAG), Diabetes Care, Vol.31,#8,Mar. 2007 Blood Venous blood specimen / Unknown 05/09/2024 3:45 PM EDT 05/09/2024 5:48 PM EDT us Luis Eduardo Hagen MD LAB BLOOD ORDERABLES Final Resul t Performing Organization Address [facility] de Phone Number [facility] [address] [place] [address] [phone] * BI Mammogram Screening Tomosynthesis Bilateral (01/13/2024 4:10 PM EDT) Anatomical Region Laterality Modality Breast Bilateral Mammography 01/13/2024 4:10 PM EDT Narrative 02/14/2024 7:45 AM EDT ? [facility] [place] ? [address] ?[place] [address] ? Mammography Report ? Signed ? Patient: Olvera,Daniela M ?MR#: [id number] ?? [id number] ? : 1950 ?Acct:[id number] ? Age/Sex: 73 / F ?ADM Date: 05/16/24 ? Loc: HO.MAMMO ? Attending Dr: Luis Eduardo Hagen MD ? Ordering Physician: Luis Eduardo Hagen MD ?Results: 1Negative ? Date of Service: 01/13/24 ?Follow Up: 1 Year From Orig ?? inal Mammogram ? Procedure(s): MM tomosynthesis screening BI ?? Accession Number(s): [id number] ? cc: Luis Eduardo Hagen MD ? EXAMINATION: ?? MM SCREENING DIGITAL BREAST TOMOSYNTHESIS, BILATERAL ? CLINICAL INFORMATION: ? Screening. Asymptomatic. ? COMPARISON: ?? Mammography: This study is compared with prior exams dating back to ?? 2017. ? TECHNIQUE: ?? Digital breast tomosynthesis is performed in both the craniocaudal and ?? mediolateral oblique views along with computer-aided detection (CAD). ?? Synthesized 2D images are generated from the tomosynthesis. ? FINDINGS: ?? There are scattered areas of fibroglandular density (ACR BI-RADS breast ?? composition Category b). ? There are no significant masses, abnormal calcifications, or other ?? abnormalities. ? MM/MM tomosynthesis screening BI ?? IMPRESSION: ?? No mammographic evidence of malignancy. ? ASSESSMENT: ? BI-RADS BI-RADS 1 - Negative ? RECOMMENDATION: ?? Routine annual mammography screening. ? 1 year F/U ? This examination should not preclude the clinical evaluation of a ?? suspicious palpable abnormality. ? This patient's information was entered into a reminder system with a ?? target due date for their next mammogram. ? Dictated By: ?Kiley Ardon MD ? Signed By: ?<Electronically signed by Kiley Ardon MD in OV> ? 02/14/24 0742 ? DD/ 1610 ? TD/TT: ? Systems Analysis Manager: ? Procedure Note Donotuseinterpreter, Image - 02/14/2024 [facility] [address] [place] [address] Mammography Report Signed Patient: Daniela Olvera MMR#: [id number] : 1950cct:[id number] Age/Sex: 73 / FADM Date: 01/13/24 Loc: [facility] Attending Dr: Luis Eduardo Hagen MD Ordering Physician: Luis Eduardo Hagen MDResults: 1Negative Date of Service: 01/13/24Follow Up: 1 Year From Orig inal Mammogram Procedure(s): MM tomosynthesis screening BI Accession Number(s): [id number] cc: Luis Eduardo Hagen MD EXAMINATION: MM SCREENING DIGITAL BREAST TOMOSYNTHESIS, BILATERAL CLINICAL INFORMATION: Screening. Asymptomatic. COMPARISON: Mammography: This study is compared with prior exams dating back to 2017. TECHNIQUE: Digital breast tomosynthesis is performed in both the craniocaudal and mediolateral oblique views along with computer-aided detection (CAD). Synthesized 2D images are generated from the tomosynthesis. FINDINGS: There are scattered areas of fibroglandular density (ACR BI-RADS breast composition Category b). There are no significant masses, abnormal calcifications, or other abnormalities. MM/MM tomosynthesis screening BI IMPRESSION: No mammographic evidence of malignancy. ASSESSMENT: BI-RADS BI-RADS 1 - Negative RECOMMENDATION: Routine annual mammography screening. 1 year F/U This examination should not preclude the clinical evaluation of a suspicious palpable abnormality. This patient's information was entered into a reminder system with a target due date for their next mammogram. Dictated By: Kiley Ardon MD Signed By: <Electronically signed by Kiley Ardon MD in OV> 02/14/24 0742 DD/ 1610 TD/TT: Systems Analysis Manager: Luis Eduardo Hagen MD IMG BI PROCEDURES Final Result * Colonoscopy (10/08/2017) Colonoscopy Normal Normal [facility] Unassigned Pcp HEALTH MAINTENANCE Final Result from Last 3 Months or Most Recently Relevant to Health Maintenance Insurance - [employer] Care Teams Nurse Charge Rn Relationship Specialty Start Date End Date Luis Eduardo Hagen MD [address] [place] [phone] PCP - General Family Medicine 08/11/12 Selwyn Crowley, PharmD [address] [place] [phone] Pharmacist Internal Medicine 11/06/22
--- OUTSIDE RECORDS SUMMARY | 2024-11-27 13:51 | XMS_ITS | Encounter Summary ---
Author Organization [facility] Address [address] [facility] 7t [place] [address] Care Team Providers Care Registered Nurses Name Role Phone Lisa Hagen MD Primary Care Provider [phone] Selwyn Crowley PharmD Unavailable [phone] Encounter Details Date Type Department Care Team (Late st Contact Info) Description 10/23/2022 Orders Only [facility] MEDICINE [address] [place], [place] [phone] Lisa Hagen MD [address] [place], [place] [phone] Primary hypertension (Primary Dx); Mild cognitive impairment Social History Tobacco Use Types Packs/Day Years Used Date Smoking Tobacco: Never Assessed Comments Unknown Sex and Gender Information Value Date Recorded Sex Assigned at Female 06/29/2022 10:16 AM EDT Legal Sex Female 10:16 AM EDT Gender Identity Female 06/29/2022 10:16 AM EDT Sexual Orientation Straight 06/29/2022 10 :16 AM EDT documented as of this encounter Plan of Treatment Not on file documented as of this encounter Visit Diagnoses Diagnosis Primary hypertension- Primary Unspecified essential hypertension Mild cognitive impairment Mild cognitive impairment, so stated documented in this encounter Care Teams Registered Nurses Relationship Specialty Start Date End Date Lisa Hagen MD [address] [place], [place] [phone] PCP - General Family Medicine 08/11/12 Selwyn Crowley, PharmD [address] [place] [address] [phone] Pharmacist Internal Medicine 11/06/22 documented as of this encounter
--- OUTSIDE RECORDS SUMMARY | 2024-11-27 13:51 | XMS_ITS | Encounter Summary ---
Author Organization [employer] Address [address] [facility] 7[address] [place] [address] Care Team Providers Care Battery Recharger Name Role Phone Lisa Hagen MD Primary Care Provider [phone] Selwyn Crowley PharmD Unavailable [phone] Encounter Details Date Type Department Care Team ([facility] st Contact Info) Description 07/17/2024 Telephone [facility] MEDICINE [address] [place], [place] [phone] Lisa Hagen MD [address] [place], [place] [phone] Social History Tobacco Use Types Packs/Day Years Used Date Smoking Tobacco: Never Passive Smoke Exposure: Never Smokeless Tobacco: Never Depression Answer Date Recorded Patient Health Questionnaire-9 Score 0 01/18/2024 Patient Health Questionnaire-9 Score 0 01/18/2024 Last PHQ-9: Questionnaire Data Not on file 0 01/18/2024 Housing Stability Answer Date Recorded What is [...] Date Recorded Patient Health Questionnaire-2 Score 0 01/18/2024 Comments Unknown Sex and Gender Information Value [...] Noted Time PHQ-9 Depression Total Score: 0 01/18/20 24 3:26 PM EDT documented as of this encounter Care Teams Battery Recharger Relationship Specialty Start Date End Date Lisa Hagen MD [address] [place] [address] PCP - General Family Medicine 08/11/12 Selwyn Crowley, Vinicius [address] [place] [address] Pharmacist Internal Medicine 11/06/22 documented as of this encounter
--- OUTSIDE RECORDS SUMMARY | 2024-11-27 13:51 | XMS_ITS | Encounter Summary ---
Author Organization [employer] [facility] Address [address] [facility] 7[address] [place] [address] Care Team Providers Care Wooden Fence Erector Name Role Phone Lisa Hagen MD Primary Care Provider [phone] Selwyn Crowley PharmD Unavailable [phone] Encounter Details Date Type Department Care Team (Late st Contact Info) Description 08/09/2022 Orders Only [facility] MEDICINE [address] [place], [place] [phone] Lisa Hagen MD [address] [place] [address] Social History Tobacco Use Types Packs/Day Years [...] Diagnoses Not on filedocumented in this encounter Care Teams Wooden Fence Erector Relationship Specialty Start Date End Date Lisa Hagen MD [address] [place], [place] [phone] PCP - General Family Medicine 08/11/12 Selwyn Crowley, PharmD [address] [place] [address] [phone] Pharmacist Internal Medicine 11/06/22 documented as of this encounter
--- OUTSIDE RECORDS SUMMARY | 2024-11-27 13:51 | XMS_ITS | Encounter Summary ---
Author Organization [employer] Address [address] [facility] [address] [place] [address] Care Team Providers Care Dinkey Locomotive Engineer Name Role Phone Lisa Hagen MD Primary Care Provider [phone] Selwyn Crowley PharmD Unavailable [phone] Encounter Details Date Type Department Care Team (Late st Contact Info) Description 11/27/2024 Orders Only [facility] MEDICINE [address] [place], [place] [phone] Lisa Hagen MD [address] [place], [place] [phone] Low serum potassium (Primary Dx) Social History Tobacco Use Types Packs/Day Years [...] as of this encounter Plan of Treatment Scheduled Orders Name Type Priority Associated Diagnoses Orde r Schedule Basic Metabolic Panel Lab Routine Low serum potassium Expected: 11/27/2024 (Approximate), Expires: 11/27/2025 Magnesium Lab Routine Low serum potassium Expected: 11/27/2024 (Approximate), Expires: 11/27/2025 documented as of this encounter Goals Goal Patient Goal Type Associated Problems Recent Progress Patient-Stated? Author Blood Pressure < 150/90 Blood Pressure 124/72(2024 11:01 AM EDT) No Selwyn Crowley, Vinicius Note: >60 years old without Hx of CKD or DM documented as of this encounter Visit Diagnoses Diagnosis Low serum potassium- Primary documented in this encounter Additional Health Concerns Assessment Noted Time PHQ-9 Depression Total Score: 0 08/10/20 24 10:16 AM EST documented as of this encounter Care Teams Dinkey Locomotive Engineer Relationship Specialty Start Date End Date Lisa Hagen MD [address] [place] [address] PCP - General Family Medicine 08/11/12 Selwyn Crowley, MarzenaD [address] [place] [phone] Pharmacist Internal Medicine 11/06/22 documented as of this encounter
[2024-11-27 14:39] LABS: Anion Gap 10 (12-20); Blood Urea Nitrogen 15 mg/dL (9-16); Carbon Dioxide 27 mmol/L (22-29); Chloride 108 mmol/L (96-108); Estimated Glomerular Filt Rate > 60; Glucose Random 139 mg/dL (60-115); Magnesium 2.3 mg/dL (1.6-2.6); Potassium 3.3 mmol/L (3.3-5.1); Sodium 142 mmol/L (135-145)
== END 2024-11-27 12:12 | disposition home or self-care (01) ==
LOC: HO.HHCL 12:11
PROVIDERS: Visit Provider Family Medicine
DX: E87.6 Hypokalemia (principal)
CPT/HCPCS: 36415; 80048; 83735

== ENCOUNTER 2025-02-26 12:20 | Outpatient (REF) | payer OTHER, SELFPAY ==
--- NOTE | ~2025-02-26 | XR_ITS ---
EXAMINATION: Bilateral knee. CLINICAL INDICATION: Bilateral knee pain. COMPARISON: None. TECHNIQUE: 3 views each knee. FINDINGS: Right knee: AP, oblique and lateral views of right knee reveal total right knee prosthesis with prosthetic components in satisfactory alignment. No abnormal joint effusion loose bodies seen. No prosthetic loosening noted. Left knee: There is a total left knee prosthesis with prosthetic components in satisfactory alignment. No prosthetic loosening seen. No abnormal joint effusion or loose bodies seen. No visible fracture. XR/XR Knee Paul 3V IMPRESSION: Bilateral knee prosthesis in satisfactory alignment. There is no pulmonary metastatic loosening, joint effusion or loose bodies. No for acute fractures seen. Electronically signed by: Migue Berry MD 02/26/2025 01:43 PM EDT
--- NOTE | ~2025-02-26 | XR_ITS ---
EXAMINATION: XR ANKLE, RIGHT CLINICAL INFORMATION: bilateral ankle swelling and pain COMPARISON: None available. TECHNIQUE: AP, lateral, and mortise views of the right ankle. FINDINGS: The ankle mortise and subtalar joints are normal. There is moderate retrocalcaneal and calcaneal heel spur. There is no visible acute fracture or dislocation. A small loose body at the tip of medial malleolus likely old injury. There is bimalleolar soft tissue swelling. XR/XR ankle RT min 3V IMPRESSION: No acute fracture or dislocation. Small bone fragment tip of medial malleolus likely old injury. Bimalleolar soft tissue swelling suggestive of ligamentous injury. Electronically signed by: Migue Berry MD 02/26/2025 01:34 PM EDT
--- NOTE | ~2025-02-26 | XR_ITS ---
EXAMINATION: XR ANKLE, LEFT CLINICAL INFORMATION: bilateral ankle swelling and pain COMPARISON: None available. TECHNIQUE: AP, lateral, and mortise views of the left ankle. FINDINGS: There is bimalleolar soft tissue swelling. The ankle mortise and subtalar joints are normal. No visible acute fracture or dislocation seen. There are moderate size calcaneal heel and retrocalcaneal enthesophytes. XR/XR ankle LT min 3V IMPRESSION: Bimalleolar soft tissue swelling likely ligament is injury. No acute fracture or dislocation. Moderate size calcaneal heel and retrocalcaneal enthesophytes. Electronically signed by: Migue Berry MD 02/26/2025 01:40 PM EDT
--- OUTSIDE RECORDS SUMMARY | 2025-02-26 12:53 | XMS_ITS | Encounter Summary ---
Author Organization [employer] Address [address] [facility] 7t [place] [address] Care Team Providers Care Linoleum Layer Apprentice Name Role Phone Lisa Hagen MD Primary Care Provider [phone] Selwyn Crowley PharmD Unavailable [phone] Encounter Details Date Type Department Care Team (Late st Contact Info) Description 10/23/2022 Orders Only [facility] MEDICINE [address] [place], [place] [phone] Lisa Hagen MD [address] [place] [address] Primary hypertension (Primary Dx); Mild cognitive impairment [...] stated documented in this encounter Care Teams Linoleum Layer Apprentice Relationship Specialty Start Date End Date Lisa Hagen MD [address] [place] [address] [phone] PCP - General Family Medicine 08/11/12 Selwyn Crowley, PharmD [address] [place] [address] [phone] Pharmacist Internal Medicine 11/06/22 documented as of this encounter
[2025-02-26 16:06] LABS: MANUAL DIFF FLAG NO
[2025-02-26 16:08] LABS: Basophils Absolute Auto 0.1 X10*3/uL (0.0-0.2); Basophils Percent Auto 0.7 % (0-2); Eosinophils Absolute Auto 0.1 X10*3/uL (0.0-0.4); Eosinophils Percent Auto 1.6 % (0-4); Hematocrit 40.2 % (37.0-47.0); Hemoglobin 12.9 g/dl (12.0-16.0); Imm Gran Abs Auto 0.02 X10*3/uL (0.00-0.03); Imm Gran Pct Auto 0.3 % (0.0-0.4); Lymphocytes Absolute Auto 2.5 X10*3/uL (1.2-4.9); Lymphocytes Percent Auto 36.4 % (20-40); Mean Corpuscular HGB Conc 32.1 g/dl (31.0-35.0); Mean Corpuscular Hemoglobin 29.7 pg (27.0-33.0); Mean Corpuscular Volume 92.6 fL (80.0-98.0); Mean Platelet Volume 11.3 fL (9.4-12.3); Monocytes Absolute Auto 0.5 X10*3/uL (0.1-1.2); Monocytes Percent Auto 7.4 % (2-11); Neutrophils Absolute Auto 3.6 x10*3/uL (2.0-8.3); Neutrophils Percent Auto 53.6 % (45-73); Platelet Count 195 X10*3/uL (160-400); Red Blood Count 4.34 X10*6/uL (4.20-5.50); Red Cell Distribution Width 13.6 % (11.0-16.0); White Blood Count 6.7 X10*3/uL (4.8-10.8)
[2025-02-26 16:25] LABS: Anion Gap 11 (12-20); Blood Urea Nitrogen 11 mg/dL (9-16); C Reactive Protein 1.13 mg/dL (< or = 0.50); Calcium 8.5 mg/dL (8.4-10.2); Carbon Dioxide 26 mmol/L (22-29); Chloride 109 mmol/L (96-108); Estimated Glomerular Filt Rate > 60; Glucose Random 94 mg/dL (60-115); Potassium 3.7 mmol/L (3.3-5.1); Sodium 142 mmol/L (135-145); Uric Acid 4.5 mg/dL (2.4-5.7)
[2025-02-26 16:46] LABS: Erythrocyte Sedimentation Rate 13 MM/HR (0-20)
== END 2025-02-26 12:21 | disposition home or self-care (01) ==
LOC: HO.HHCX 12:20
PROVIDERS: PCP Family Medicine; Visit Provider Family Medicine
DX: M25.571 Pain in right ankle and joints of right foot (principal); G89.29 Other chronic pain; M25.572 Pain in left ankle and joints of left foot; I10 Essential (primary) hypertension; M25.561 Pain in right knee; M25.562 Pain in left knee; Z96.653 Presence of artificial knee joint, bilateral; M77.32 Calcaneal spur, left foot; M79.89 Other specified soft tissue disorders
CPT/HCPCS: 36415; 73562; 73610; 80048; 84550; 85025; 85652; 86140

== ENCOUNTER → 2025-02-26 12:30 | Outpatient (BNV) | payer OTHER, SELFPAY | PROVIDERS: PCP Family Medicine; Visit Provider Radiology Diagnostic Radiology | DX: M25.561 Pain in right knee (principal); M25.562 Pain in left knee; M25.572 Pain in left ankle and joints of left foot; R22.42 Localized swelling, mass and lump, left lower limb; M25.571 Pain in right ankle and joints of right foot; R22.41 Localized swelling, mass and lump, right lower limb; Z96.653 Presence of artificial knee joint, bilateral | CPT/HCPCS: 73562; 73610 ==

== ENCOUNTER 2025-05-23 14:51 | Outpatient (AMB) | payer OTHER, SELFPAY ==
--- NOTE | 2025-05-23 15:00 | A.OFFVIS_ITS ---
Vital Signs 05/23/25 15:23 Height 5 ft 5 in Weight 224 lb BMI 37.3 Intake Visit Reasons: Hernia Intake Note: This patient was referred by Dr. Hagen for hernia assessment. Pt' daughter c/o; on Xarelto, reports bulge, discomfort, reports bowel movements after meals, increasing in size. Landing Scaler Required: Yes Landing Scaler Language: Director Fraud Services: Landing Scaler Present Landing Scaler Name: Faiza Accompanied by: Daughter Allergies clarithromycin (CLARITHROMYCIN) Allergy (Intermediate, Unverified 05/23/25 15:01) HIVES, hives/skin rash hylan G-F 20 (HYLAN G-F 20) Allergy (Intermediate, Unverified 05/23/25 15:01) HIVES/RASH, hives/skin rash lisinopril (LISINOPRIL) Allergy (Intermediate, Unverified 05/23/25 15:01) ANAPHYLAXIS Penicillin Allergy (Unknown, Uncoded 05/23/25 15:01) Unknown HPI HPI Hernia: Details: [age] year old female referred for a supraumbilical hernia. The daughter says that she has had this for many years. This started as a small hernia but this has increased in size over the past few years. The patient has dementia so the history is from the daughter. The patient does still recognize family members and is able to communicate with simple questions. She ambulates at home without difficulty. The daughter says that the patient sees a button puncher because of a cardiac issue. She does not seem to complain of chest pains. The daughter also says that the patient has alternating diarrhea and constipation. [facility] Medical History (Updated 05/23/25 @ 15:23 by Deshaun Chandler MD) Morbid obesity Osteoarthritis CHF (congestive heart failure) Alzheimer's dementia Obstructive sleep apnea PAT (paroxysmal atrial tachycardia) Hypertension Supraumbilical hernia Surgical History (Updated 05/23/25 @ 15:23 by Deshaun Chandler MD) History of cholecystectomy History of appendectomy Social History Alcohol intake: never Patient Tobacco Use Status: Never used Tobacco Review of Systems Const Denies chills and Denies fever(s) Card Denies chest pain, Denies dyspnea and Denies dyspnea on exertion Resp Denies cough, Denies dyspnea and Denies dyspnea on exertion GI Denies hematochezia, Denies change in bowel habits, Reports constipation and Reports diarrhea Denies hematuria Musc Denies back pain and Denies limited range of motion Neuro Denies focal weakness and Denies convulsions Psych Denies depression and Denies mood swings Physical Exam Vital Signs: BMI result Body Mass Index 37.3 Const Other: Obese General: comfortable and no acute distress Orientation/consciousness: patient oriented x3 Neck Neck: Yes no lymphadenopathy Resp Auscultation: clear to auscultation bilaterally Cardio Rhythm: regular rhythm GI Other: Reducible supraumbilical hernia, about 5 cm in diameter Palpation (GI): Soft to palpation, nontender and no guarding Neuro General: patient oriented x3 Assessment & Plan Assessment & Plan (1) Supraumbilical hernia: Code(s): K43.9 - Ventral hernia without obstruction or gangrene Category: Medical Plan: The patient has a palpable reducible supraumbilical hernia about 5 cm in diameter The daughter says that she seems to be uncomfortable with this and that the hernia has increased in size significantly over the past few years. She states that she feels that this should be repaired I reviewed with them the technique of repair with possible mesh placement. I reviewed the risks of bleeding, infections, bowel injury, recurrence, MT, strokes, inherent risks of anesthesia, as well as the benefits and alternatives. I also explained to them what to expect postoperatively She says she wants her mother to proceed with the surgery as this has really increased in size and seems to be bothering her I will have the patient evaluated by primary care physician as well as the button puncher. I have ordered for a CAT scan as well to define the hernia to aid in approach to surgery. Orders: Orders CT abdomen pelvis wo IV con 05/23/25 K43.9 - Ventral hernia without obstruction or gangrene Coding Level of Care Code New Pt Level 3 (19405) Diagnoses Supraumbilical hernia K43.9
[2025-05-23 15:23] VITALS: BMI 37.3
--- OUTSIDE RECORDS SUMMARY | 2025-05-23 17:22 | XMS_ITS | Encounter Summary ---
Author Organization [employer] Address [address] [facility] [address] [place] [address] Care Team Providers Care Thermal Technician Name Role Phone Lisa Hagen MD Primary Care Provider [phone] Selwyn Crowley PharmD Unavailable [phone] Encounter Details Date Type Department Care Team ([facility] st Contact Info) Description 07/17/2024 Telephone [facility] [address], [place] [phone] Lisa Hagen MD [address] [place], [place] [phone] Social History Tobacco Use Types Packs/Day Years [...] as of this encounter Plan of Treatment Upcoming Encounters Date Type Department Care Team (Late st Contact Info) Description 06/11/2025 11:15 AM EDT Office Visit [facility] [address] [place] [address] Lisa Hagen MD [address] [place] [address] documented as of this encounter Goals Goal Patient Goal Type Associated Problems Recent Progress Patient-Stated? Author Blood Pressure < 150/90 Blood Pressure 138/70(2024 11:41 AM EDT) No Selwyn Crowley, Vinicius Note: >60 years old without Hx of CKD or DM documented as of this encounter Visit Diagnoses Not on filedocumented in this encounter Additional Health Concerns Assessment Noted Time PHQ-9 Depression Total Score: 0 01/18/20 24 3:26 PM EDT documented as of this encounter Care Teams Thermal Technician Relationship Specialty Start Date End Date Lisa Hagen MD [address] [place] [phone] PCP - General Family Medicine 08/11/12 Selwyn Crowley, MarzenaD [address] [place] [phone] Pharmacist Internal Medicine 11/06/22 documented as of this encounter
--- OUTSIDE RECORDS SUMMARY | 2025-05-23 17:22 | XMS_ITS | Encounter Summary ---
Author Organization [employer] Address [address] [facility] [address] [place] [address] Care Team Providers Care Pulmonary Physician Name Role Phone Lisa Hagen MD Primary Care Provider [phone] Selwyn Crowley PharmD Unavailable [phone] Encounter Details Date Type Department Care Team (Late st Contact Info) Description 11/27/2024 Orders Only [facility] [address] [place], [place] [phone] Lisa Hagen MD [address] [place], [place] [phone] Low serum potassium (Primary Dx) Social History [...] Description 06/11/2025 11:15 AM EDT Office Visit [facility] [address] [place], [place] [phone] Lisa Hagen MD [address] [place], [place] [phone] documented as of this encounter Goals Goal Patient Goal Type Associated Problems Recent Progress Patient-Stated? Author Blood Pressure < 150/90 Blood Pressure 138/70(2024 11:41 AM EDT) No Selwyn Crowley, MarzenaD Note: >60 years old without Hx of CKD or DM documented as of this encounter Procedures Procedure Name Priority Date/Time Associated Diagnosis Comments MAGNESIUM Routine 11/27/2024 12:12 PM EDT Low serum potassium BASIC METABOLIC PANEL Routine 11/27/2024 12:12 PM EDT Low serum potassium documented in this encounter Results * Magnesium (11/27/2024 12:12 PM EDT) Magnesium 2.3 1.6 - 2.6 mg/dL [facility] Blood Venous blood specimen / Unknown 11/27/2024 12:12 PM EDT 11/27/2024 1:47 PM EDT Lisa Hagen MD LAB BLOOD ORDERABLES Final Resul t Performing Organization Address [facility] de Phone Number [facility] [address] [place] [address] [phone] * (ABNORMAL) Basic Metabolic Panel (11/27/2024 12:12 PM EDT) Sodium 142 135 - 145 mmol/L [facility] Potassium 3.3 3.3 - 5.1 mmol/L [facility] Chloride 108 96 - 108 mmol/L [facility] Carbon Dioxide 27 22 - 29 mmol/L [facility] Anion Gap 10(L) 12 - 20 [facility] Urea Nitrogen (BUN) 15 9 - 16 mg/dL [facility] Creatinine, Serum 0.73 0.5 - 1.4 mg/dL [facility] Estimated Glomerular Filt Rate >60 [facility] Comment:Chronic Kidney Disea se: Estimated GFR < 60 mL/min/[id number] Kidney Disease: Estimated GFR < 15 mL/min/1.73m2 Glucose 139(H) 60 - 115 mg/dL [facility] Calcium 9.0 8.4 - 10.2 mg/dL [facility] Blood Venous blood specimen / Unknown 11/27/2024 12:12 PM EDT 11/27/2024 1:47 PM EDT Lisa Hagen MD LAB BLOOD ORDERABLES Final Resul t Performing Organization Address [facility] Co de Phone Number [facility] [address] [place] [address] [phone] documented in this encounter Visit Diagnoses Diagnosis Low serum potassium- Primary documented in this encounter Additional Health Concerns Assessment Noted Time PHQ-9 Depression Total Score: 0 08/10/20 24 10:16 AM EST documented as of this encounter Care Teams Pulmonary Physician Relationship Specialty Start Date End Date Lisa Hagen MD [address] [place] [phone] PCP - General Family Medicine 08/11/12 Selwyn Crowley, PharmD [address] [place] [address] Pharmacist Internal Medicine 11/06/22 documented as of this encounter
--- OUTSIDE RECORDS SUMMARY | 2025-05-23 17:22 | XMS_ITS | Encounter Summary ---
Author Organization [employer] Address [address] [facility] 7t [place] [address] Care Team Providers Care Form Setter Steel Pan Forms Name Role Phone Lisa Hagen MD Primary Care Provider Selwyn Crowley PharmD Unavailable [phone] Encounter Details Date Type Department Care Team (Late st Contact Info) Description 08/09/2022 Orders Only [facility] [address] [place] [address] [phone] Lisa Hagen MD [address] [place] [address] [phone] Social History Tobacco Use Types Packs/Day Years [...] Description 06/11/2025 11:15 AM EDT Office Visit [facility] [address] [place] [phone] Lisa Hagen MD [address] [place] [address] [phone] documented as of this encounter Visit Diagnoses Not on filedocumented in this encounter Care Teams Form Setter Steel Pan Forms Relationship Specialty Start Date End Date Lisa Hagen MD [address] [place] [phone] PCP - General Family Medicine 08/11/12 Selwyn Crowley, PharmD [address] [place] [address] [place] [phone] Pharmacist Internal Medicine 11/06/22 documented as of this encounter
--- OUTSIDE RECORDS SUMMARY | 2025-05-23 17:22 | XMS_ITS | Clinical Summary ---
Author Organization [address] [facility] Address [address] [place] [address] Phone Care Team Providers Care Fnps Name Role Phone Lisa Hagen MD Primary Care Provider [phone] Social History Tobacco Use Types Packs/Day Years Used Date Smoking Tobacco: Never Assessed Comments Unknown Sex and Gender Information Value Date Recorded Sex Assigned at Not on file Legal Sex Female 8:47 AM EDT Gender Identity Not on file Sexual Orientation Not on file Plan of Treatment Upcoming Encounters Date Type Department Care Team (Late st Contact Info) Description 05/28/2025 11:00 AM EDT Consult Orthopedic Surgery - [place] [address] [phone] Randolph Ayers, MARIAN [address] [address] Health Maintenance Due Date Last Done Comments Breast Cancer Screening 1950 DTaP,Tdap,and Td Vaccines (1 - Tdap) 1969 Pneumococcal Vaccine: 50+ Ye ars (1 of 1 - PCV) 2000 Zoster Vaccines (1 of 2) 2000 Depression Screening 08/30/2024 Colorectal Cancer Screening: Colonoscopy 03/13/2025 Falls Risk Assessment 03/13/2025 Hepatitis C Screening 03/13/2025 Medicare Annual Wellness Visit 03/13/2025 Osteoporosis Screening (Bone Density Screening) 03/13/2025 Social Influencers of Health Screening 03/13/2025 COVID-19 Vaccine ( - 2023-2 5 season) 2025 Influenza Vaccine (#1) 2025 RSV Immunization Adult Patie nts (1 - 1-dose 75+ series) 2025 HIB Vaccines Aged Out No longer eligi [...] on patient's age to complete this topic IPV Vaccines Aged Out No longer eligi ble based on patient's age to complete this topic MMR Vaccines Aged Out No longer eligi ble based on patient's age to complete this topic Meningococcal ACWY Vaccine Aged Out N o longer eligible based on patient's age to complete this topic Meningococcal B Vaccine Aged Out No l onger eligible based on patient's age to complete this topic RSV Immunization Patients Un galo 20 months Aged Out No longer eligible b ased on patient's age to complete this topic Varicella Vaccines Aged Out No longer eligible based on patient's age to complete this topic Insurance [facility] Member Subscriber Plan / Payer (Ef fective 2022-Present) Name:Daniela Edwards Relation to Subscriber:Self Name:Daniela Olvera Payer ID:[id number] Group ID:[id number] Type:Not on file Address: [place] [address] [address] [id number] Care Teams Fnps Relationship Specialty Start Date End Date Lisa Hagen MD [address] [place] [phone] PCP - General Family Medicine 03/13/25
--- OUTSIDE RECORDS SUMMARY | 2025-05-23 17:22 | XMS_ITS | Clinical Summary ---
Author Organization [employer] Address [address] [place] [address] Care Team Providers Care Lance Crewmember/Mlrs Sergeant Name Role Phone Lisa Hagen MD Primary Care Provider [phone] Selwyn Crowley PharmD Unavailable [phone] Allergies Active Allergy Reactions Criticality Noted Date Comments Clarithromycin Hives High 09/26/2014 Hylan G-F 20 Hives High 07/15/2015 Lisinopril 04/07/2013 Medications * This document contains information received from the source organization and may not represent a complete record from that organization. donepezil (Aricept) 10 MG tablet Take 10 mg by mouth at bedtime. 2 Active Xarelto 20 MG tablet Take 20 mg by mouth in the morning. 2 Active Acetaminophen Extra Strength 500 MG tablet TAKE 2 TABLETS BY MOUTH EVERY 8 HOURS NEEDED FOR PAIN 180 tablet 2 4 Active memantine (Namenda) 10 MG tablet TAKE 1 TABLET BY MOUTH ONCE DAILY FOR 3 WEEKS THEN INCREASE TO 1 TABLET TWICE DAILY 4 Active metoprolol succinate XL (Toprol-XL) 50 MG 24 hr tablet TAKE 1 TABLET BY MOUTH EVERY MORNING 3 Active bumetanide (Bumex) 0.5 MG tablet Take 1 tablet (0.5 mg) by mouth Once per day. 30 tablet 11 4 Active sertraline (Zoloft) 50 MG tablet Take 50 mg by mouth Once per day. 4 Active atorvastatin (Lipitor) 20 MG tablet Take 1 tablet (20 mg) by mouth at bedtime. 90 tablet 3 4 08/10/20 25 Active chlorthalidone (Hygroton) 25 MG tabletIndications :Primary hypertension TAKE 1 TABLET BY MOUTH EVERY MORNING 30 tablet 11 4 Active D3-1000 25 MCG (1000 UT) capsuleIndication s:Vitamin D deficiency TAKE 1 CAPSULE BY MOUTH EVERY MORNING 30 capsule 11 5 Active cyclobenzaprine (Flexeril) 10 MG tabletIndications :Muscle spasm TAKE 1 TABLET BY MOUTH EVERY DAY 30 tablet 3 5 Active Active Problems Problem Noted Date Diagnosed Date Abdominal hernia 03/10/2025 Assessment & Plan (03/10/2025 6:42 AM EDT): - It is an impressive size - Will refer to surgeon - Recommended using abdominal brace Ascending aorta dilation 05/09/2024 Assessment & Plan (11/17/2024 8:06 PM EDT): - Following with HFA - Last transthoracic echocardiogram: 04/11/24. Maximum diameter of ascending aorta 43 mm - Next echo in 1 year - optimize risk factor management Assessment & Plan (08/12/2024 4:22 PM EST): - Following with [facility] - Last transthoracic echocardiogram: 04/11/24. Maximum diameter of ascending aorta 43 mm - Next echo in 1 year - optimize risk factor management Assessment & Plan (05/09/2024 5:32 AM EDT): - Following with HFA - Last transthoracic echocardiogram: 04/11/24. Maximum diameter of ascending aorta 43 mm - Next echo in 1 year - optimize risk factor management (HFpEF) heart failure with preserved ejection fr action 05/09/2024 Assessment & Plan (02/26/2025 10:53 AM EDT): - Most recent echo: 04/11/24 Moderate concentric LVH, Left ventricular systolic EF 50-55%, mild thickening of anterior mitral valve, Ascending aorta 4.3 cm. Normal right ventricular systolic function. - Encourage CPAP use - Recommended to check her weight and vitals daily - Consider SGLT2i and/or MRA (taper down and off chlorthalidone or bumetanide, consider switching to carvedilol) Assessment & Plan (11/17/2024 8:06 PM EDT): [...] vitals daily Dyslipidemia 01/18/2024 Assessment & Plan (02/26/2025 10:53 AM EDT): - last lipid profile October 2024 - moderate intensity statin therapy is recommended per guideline - continue atorvastatin 20 mg at bedtime, consider increasing to 40 mg daily as tolerated - continue working on lifestyle modifications Assessment & Plan (11/19/2024 4:40 PM EDT): [...] urge urinary incontinence 03/26 Assessment & Plan (03/10/2025 6:40 AM EDT): - pt is using incontinence supply Assessment & Plan (01/25/2024 10:51 AM EDT): - pt is using incontinence supply - will renew her previous prescription Assessment & Plan (03/26/2023 6:40 AM EDT): - pt is using incontinence supply Depression 03/26/2023 Assessment & Plan (02/26/2025 10:54 AM EDT): - 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 Bumetanide was added in Apr 2024 Graduated from [facility] [place] - HTN Assessment & Plan (11/17/2024 8:06 PM EDT): -Goal BP < 130/80 per ACC/AHA guideline (Treatment threshold >= 130) -BP at JNC-8 goal today -co-managed with geospatial applications developer and previously our pharmacist -continue working on [...] was discontinued and metoprolol was started by geospatial applications developer in 2022. Bumetanide was added in Apr 2024 Graduated from [facility] [place] - HTN Assessment & Plan (08/10/2024 6:05 AM EST): -Goal BP < 130/80 per ACC/AHA guideline (Treatment threshold >= 130) -BP at JNC-8 goal today -co-managed with geospatial applications developer and previously our pharmacist -continue working on [...] was discontinued and metoprolol was started by geospatial applications developer in 2022. Bumetanide was added in Apr 2024 Graduated from [facility] [place] - HTN Assessment & Plan (05/15/2024 6:18 [...] up and discontinuing chlorthalidone. -seen by Selwyn Crowley [facility] on 10/25/23 for CDTM - HTN [...] [facility] 25 [facility] - [facility] [...] chlorthal[facility] 25 mg daily [facility] - HTN [...] [facility] 25 [facility] - [facility] [...] 25 mg daily -seen by Selwyn Crowley, [facility] on 11/06/22 for CDTM - HTN Previously tried amlodipine which was discontinued due to swelling, losartan was discontinued due to pt's concern about recall, lisinopril was discontinued due to cough --Follow-up in 3 months or sooner if any problem arises ERA (obstructive sleep apnea) 08/09/2022 Assessment & Plan (02/26/2025 10:55 AM EDT): - Sleep study on 06/08/22 at [facility] showed ERA. AutoPAP 8-20 cm H2O was recommended. - Seen by Dr. Cavazos on 02/03/23, [facility] gunite mixer. Recommended CPAP. - Patient was not interested in using CPAP - Will prescribe it again. Assessment & Plan (11/19/2024 4:33 PM EDT): - Sleep study on 06/08/22 at [facility] showed ERA. AutoPAP 8-20 cm H2O was recommended. - Seen by Dr. Cavazos on 02/03/23, [facility] gunite mixer. Recommended CPAP. - Patient was not interested in using CPAP - Will prescribe it again. Assessment & Plan (08/12/2024 4:21 PM EST): - Sleep study on 06/08/22 at [facility] showed ERA. AutoPAP 8-20 cm H2O was recommended. - Seen by Dr. Cavazos on 02/03/23, [facility] gunite mixer. Recommended CPAP. - Patient is not interested in using CPAP Assessment & Plan (05/15/2024 6:15 AM EDT): - Sleep study on 06/08/22 at [facility] showed ERA. AutoPAP 8-20 cm H2O was recommended. - Seen by Dr. Cavazos on 02/03/23 Assessment & Plan (10/01/2023 11:24 AM EST): - Sleep study on 06/08/22 at [facility] showed ERA. AutoPAP 8-20 cm H2O was recommended. - Seen by Dr. Cavazos on 02/03/23 - Called [facility], the office states the order was delayed, but the script has already been received by CPAP supplier Assessment & Plan (03/26/2023 6:49 AM EDT): - Sleep study on 06/08/22 at [facility] showed ERA. AutoPAP 8-20 cm H2O was recommended. - Seen by Dr. Cavazos on 02/03/23 - Called [facility], the office states the order was delayed, but the script has already been received by CPAP supplier Assessment & Plan (11/22/2022 7:13 AM EDT): Sleep study on 06/08/22 at [facility] showed ERA. AutoPAP 8-20 cm H2O was recommended. Pt does not have CPAP. Will check the status Her HALEY may improve with CPAP use Paroxysmal atrial fibrillation 08/09/2022 Assessment & Plan (02/26/2025 10:54 AM EDT): -Followed by [facility] - -Currently on Rivaroxaban (Xarelto) for anticoagulation -Metoprolol for BP and rate control -Continue current medications -Most recent echo: 04/11/24 Moderate concentric LVH, Left ventricular systolic EF 50-55%, mild thickening of anterior mitral valve, normal RV and RA -Encouraged to use CPAP, but patient is not enthusiastic Assessment & Plan (11/19/2024 4:37 PM EDT): -Followed by [facility] - [id number] Score: 4 -Currently on Rivaroxaban (Xarelto) for anticoagulation -Metoprolol for BP and rate control -Continue current medications -Most recent echo: 04/11/24 Moderate concentric LVH, Left ventricular systolic EF 50-55%, mild thickening of anterior mitral valve, normal RV and RA -Encouraged to use CPAP, but patient is not enthusiastic Assessment & Plan (08/10/2024 6:12 AM EST): -Followed by [facility] -[id number] Score: 4 -Currently on Rivaroxaban (Xarelto) for anticoagulation -Metoprolol for BP and rate control -Continue current medications -Most recent echo: 04/11/24 Moderate concentric LVH, Left ventricular systolic EF 50-55%, mild thickening of anterior mitral valve, normal RV and RA -Encouraged to use CPAP, but patient is not enthusiastic Assessment & Plan (05/15/2024 6:17 AM EDT): -Followed by [facility] -Currently on Rivaroxaban (Xarelto) for anticoagulation -Diltiazem for BP and rate control -Continue current medications -Most recent echo: 04/11/24 Moderate concentric LVH, Left ventricular systolic EF 50-55%, mild thickening of anterior mitral valve, normal RV and RA -Encouraged to use CPAP, but patient is not enthusiastic Assessment & Plan (01/18/2024 3:39 PM EDT): -Followed by [facility] -Currently on Rivaroxaban (Xarelto) for anticoagulation -Diltiazem for BP and rate control -Continue current medications -Encouraged to use CPAP once she receives the supply Assessment & Plan (10/01/2023 11:26 AM EST): -Followed by [facility] -Currently on Rivaroxaban (Xarelto) for anticoagulation -Diltiazem for BP and rate control -Continue current medications -Encouraged to use CPAP once she receives the supply Assessment & Plan (03/26/2023 6:51 AM EDT): -Followed by Dr. Palomo at [facility] on 03/16/22. -Currently on Rivaroxaban (Xarelto) for anticoagulation -Diltiazem for BP and rate control -Continue current medications -Encouraged to use CPAP once she receives the supply Assessment & Plan (11/17/2022 2:50 PM EDT): Completed Stress-Test and Echocardiogram -Followed by Dr. Palomo at [facility] on 03/16/22. -Pt was found to have paroxysmal atrial fibrillation and was started on Rivaroxaban (Xarelto) -Dr. Palomo ordered a Sleep Study Alzheimer's dementia 08/09/2022 Assessment & Plan (02/26/2025 10:55 AM EDT): - following with neurologist, Dr. Leavitt, [...] family members would like to have more WOOD MACHINIST hours because patient currently has 17 hours per week, and it is not adequate to take care of the patient. She is alone when WOOD MACHINIST leaves. Patient will benefit from more WOOD MACHINIST services to prevent social isolation and to improve safety by increasing supervised hours. Assessment & Plan (11/19/2024 4:33 PM EDT): [...] family members would like to have more WOOD MACHINIST hours because patient currently has 17 hours per week, and it is not adequate to take care of the patient. She is alone when WOOD MACHINIST leaves. Patient will benefit from more WOOD MACHINIST services to prevent social isolation and to [...] IMPAIRMENT WRITTEN ON 03/26/2023 6:47 AM BY LISA HAGEN MD -12/30/21 MRI no acute infarct or mass. Chronic microvascular ischemic change. Diffuse volume loss. 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 She is alone when WOOD MACHINIST leaves. Patient will benefit from more WOOD MACHINIST services to prevent social isolation and to improve safety by increasing supervised hours. History of cholecystectomy 09/11/2014 Osteoarthritis of knees, bilateral 10/25/2012 Assessment & Plan (02/26/2025 10:55 AM EDT): s/p Right TKR in Apr 2016. s/p Left TKR on 04/28/18 Orthopedist: [facility] -Continue judicious use of analgesics. -Previously received physical therapy Assessment & Plan (05/15/2024 6:19 AM EDT): [...] Orthopedist: [facility] -Continue judicious use of analgesics. -Continue physical [...] 03/19/2010 Impaired fasting glucose Assessment & Plan (03/01/2025 9:45 PM EDT): -Hgb A1C 6.2% on 02/26/25 -continue lifestyle modifications -recheck in 12 months Assessment & Plan (11/17/2024 8:08 PM EDT): [...] Encounters Date Type Department Care Team Description 04/25/2025 Telephone [facility] [address] [place] [address] Lisa Hagen MD may03/12/2025 Telephone [facility] PEDS [address] [place] [address] Lisa Hagen MD 02/27/2025 Telephone [facility] [address] [place] [address] Lisa Hagen MD Results 02/26/2025 11:30 AM EDT Office Visit [facility] [address] [place] [address] Lisa Hagen MD Primary hypertension (Primary Dx); Dyslipidemia; Chronic heart failure with preserved ejection fraction (CMS/HCC); Mixed stress and urge urinary incontinence; Impaired fasting glucose; ERA (obstructive sleep apnea); Alzheimer's dementia, unspecified dementia severity, unspecified timing of dementia onset, unspecified whether behavioral, psychotic, or mood disturbance or anxiety (CMS/HCC); Primary osteoarthritis of both knees; Current moderate episode of major depressive disorder without prior episode (CMS/HCC); Paroxysmal atrial fibrillation (CMS/HCC); Chronic pain of both knees; Chronic pain of both ankles; Non-recurrent abdominal hernia without obstruction or gangrene, unspecified hernia type 02/26/2025 Results Follow-Up [facility] [address] [place] [phone] Lisa Hagen MD XR Knee 3 Views Bilateral 02/26/2025 Travel 02/23/2025 Telephone [facility] [address] [place] [address] Lisa Hagen MD chart prep from Last 3 Months Immunizations Immunization Administration Dates Next Due Influenza Injectable Quadriv [...] Sign Reading Time Taken Comments Blood Pressure 138/70 02/26/2025 11:41 AM EDT Pulse 53 02/26/2025 11:41 AM EDT Temperature 36.3 C (97.3 F) 02/26/2025 11:41 AM EDT Respiratory Rate 17 02/26/2025 11:41 AM EDT Oxygen Saturation 96% 02/26/2025 11:41 AM EDT Inhaled Oxygen Concentration - - Weight 105 kg (230 lb 9.6 oz) 02/26/2025 11:41 A M EDT Height 172.7 cm (5' 8 ) 02/26/2025 11:41 AM EDT Body Mass Index 35.06 02/26/2025 11:41 AM EDT Plan of Treatment Upcoming Encounters Date Type Department Care Team (Late st Contact Info) Description 06/11/2025 11:15 AM EDT Office Visit [facility] [address] [place] [address] Lisa Hagen MD [address] [place] [address] Health Maintenance Due Date Last Done Comments CT Colonography 1950 FIT DNA/Cologuard 1950 FIT 1950 FOBT 1950 Sigmoidoscopy 1950 SDOH Screening 01/10/2025 01/11/2024 COVID-19 Vaccine ( season) 2025 11/02/2023, 03/12/2022, 07/30/2021, Additional history exists Influenza Vaccine (#1) 2025 07/12/2021 Alcohol/Substance Use Screening 08/10/2025 08/10/2024 Depression Screening 08/10/2025 08/10/2024, 08/10/20 Tobacco Screening 11/19/2025 11/19/2024 Mammogram 01/12/2026 01/13/2024, 06/30, 07/11/2021, Additional history exists Diabetes: Hemoglobin A1C 02/26/2026 025, 05/09/2024, 09/24/2023, Additional history exists DTaP/Tdap/Td Vaccines (2 - [...] 150/90 Blood Pressure 138/70(2024 11:41 AM EDT) Selwyn Massey, PharmD Note: >60 years old without Hx of CKD or DM Procedures Procedure Name Priority Date/Time Associated Diagnosis Comments BASIC METABOLIC PANEL Routine 02/26/2025 1:10 PM EDT Primary hypertension C-REACTIVE PROTEIN Routine 02/26/2025 1: 10 PM EDT Chronic pain of both ankles SED RATE BY MODIFIED WESTERGREN Routine 02/26/2025 1:10 PM EDT Chronic pain of both ankles CBC WITH AUTO DIFFERENTIAL Routine 02/26/2025 1:10 PM EDT Chronic pain of both ankles URIC ACID Routine 02/26/2025 1:10 PM EDT Chronic pain of both ankles XR ANKLE 3+ VIEWS LEFT Routine 02/26/2025 12:11 PM EDT Chronic pain of both ankles XR ANKLE 3+ VIEWS RIGHT Routine 02/26/2025 12:09 PM EDT Chronic pain of both ankles XR KNEE 3 VIEWS BILATERAL Routine 02/26/2025 11:59 AM EDT POCT GLYCOSYLATED HEMOGLOBIN (HGB A1C) Routine 02/26/2025 11:43 AM EDT Impaired fasting glucose POCT GLUCOSE Routine 02/26/2025 11:42 AM EDT Impaired fasting glucose LIPID PANEL WITH REFLEX TO DIRECT LDL Routine 11/16/2024 11:39 AM EDT Dyslipidemia BI MAMMOGRAM SCREENING TOMOSYNTHESIS BILATERAL Routine 01/13/2024 4:10 PM EDT HM COLONOSCOPY Routine 10/08/2017 from Last 3 Months or Most Recently Relevant to Health Maintenance Results * CBC auto differential (02/26/2025 1:10 PM EDT) White Blood Count 6.7 4.8 - 10.8 X10*3/uL [facility] Red Blood Count 4.34 4.20 - 5.50 X10*6/uL [facility] Hemoglobin 12.9 12.0 - 16.0 g/dl [facility] Hematocrit 40.2 37.0 - 47.0 % [facility] Mean Corpuscular Volume 92.6 80.0 - 98.0 fL [facility] Mean Corpuscular Hemoglobin 29.7 27.0 - 33.0 pg [facility] Mean Corpuscular HGB Conc 32.1 31.0 - 35.0 g/dl [facility] Red Cell Distribution Width 13.6 11.0 - 16.0 % [facility] Platelet Count 195 160 - 400 X10*3/uL [facility] Mean Platelet Volume 11.3 9.4 - 12.3 fL [facility] Neutrophils Percent Auto 53.6 45 - 73 % [facility] Imm Gran Pct Auto 0.3 0.0 - 0.4 % [facility] Lymphocytes Percent Auto 36.4 20 - 40 % [facility] Monocytes Percent Auto 7.4 2 - 11 % [facility] Eosinophils Percent Auto 1.6 0 - 4 % [facility] Basophils Percent Auto 0.7 0 - 2 % [facility] NRBC Pct Auto 0.0 0.0 - 0.2 /100WBC [facility] Neutrophils Absolute Auto 3.6 2.0 - 8.3 x10*3/uL [facility] Imm Gran Abs Auto 0.02 0.00 - 0.03 X10*3/uL [facility] Lymphocytes Absolute Auto 2.5 1.2 - 4.9 X10*3/uL [facility] Monocytes Absolute Auto 0.5 0.1 - 1.2 X10*3/uL [facility] Eosinophils Absolute Auto 0.1 0.0 - 0.4 X10*3/uL [facility] Basophils Absolute Auto 0.1 0.0 - 0.2 X10*3/uL [facility] NRBC Abs Auto 0.000 0.0 - 0.012 X10*3/uL [facility] Blood Venous blood specimen / Unknown 02/26/2025 1:10 PM EDT 02/26/2025 4:03 PM EDT Lisa Hagen MD LAB BLOOD ORDERABLES Final Resul t Performing Organization Address City/[facility]/ZIP Co de Phone Number [facility] [address] [place] [phone] * Sed Rate by Modified Westergren (02/26/2025 1:10 PM EDT) Erythrocyte Sedimentation Rate 13 0 - 20 MM/HR [facility] Comment:Patients with polycy themia and many hemoglobin abnormalitiesmay have depressed sed rates whereas patients with anemiamay have elevated sed rates. Blood Venous blood specimen / Unknown 02/26/2025 1:10 PM EDT 02/26/2025 4:03 PM EDT us Lisa Hagen MD LAB BLOOD ORDERABLES Final Resul t Performing Organization Address [facility]/ZIP Co de Phone Number [facility] [address] [place] [phone] * (ABNORMAL) C-reactive Protein (02/26/2025 1:10 PM EDT) C Reactive Protein 1.13(H) < or = 0.50 mg/dL [facility] Blood Venous blood specimen / Unknown 02/26/2025 1:10 PM EDT 02/26/2025 4:03 PM EDT Lisa Hagen MD LAB BLOOD ORDERABLES Final Resul t Performing Organization Address [facility]/ZIP Co de Phone Number [facility] [address] [place] [phone] * Uric acid (02/26/2025 1:10 PM EDT) Uric Acid 4.5 2.4 - 5.7 mg/dL [facility] Blood Venous blood specimen / Unknown 02/26/2025 1:10 PM EDT 02/26/2025 4:03 PM EDT Lisa Hagen MD LAB BLOOD ORDERABLES Final Resul t Performing Organization Address [facility] Co de Phone Number [facility] [address] [place] [phone] * (ABNORMAL) Basic Metabolic Panel (02/26/2025 1:10 PM EDT) Sodium 142 135 - 145 mmol/L [facility] Potassium 3.7 3.3 - 5.1 mmol/L [facility] Chloride 109(H) 96 - 108 mmol/L [facility] Carbon Dioxide 26 22 - 29 mmol/L [facility] Anion Gap 11(L) 12 - 20 [facility] Urea Nitrogen (BUN) 11 9 - 16 mg/dL [facility] Creatinine, Serum 0.63 0.5 - 1.4 mg/dL [facility] Estimated Glomerular Filt Rate >60 [facility] Comment:Chronic Kidney Disea se: Estimated GFR < 60 mL/min/[id number] Kidney Disease: Estimated GFR < 15 mL/min/1.73m2 Glucose 94 60 - 115 mg/dL [facility] Calcium 8.5 8.4 - 10.2 mg/dL [facility] Blood Venous blood specimen / Unknown 02/26/2025 1:10 PM EDT 02/26/2025 4:03 PM EDT us Lisa Hagen MD LAB BLOOD ORDERABLES Final Resul t [facility] [address] [place] [phone] * XR Ankle 3+ Views Left (02/26/2025 12:11 PM EDT) Anatomical Region Laterality Modality Lower Extremities, Ankle Left Radiogr aphic Imaging 02/26/2025 12:1 1 PM EDT Narrative 02/26/2025 1:44 PM EDT [address] [address] XRay Report Signed Patient: Daniela Olvera MR#: [id number] : 1950 Acct:[id number] Age/Sex: 74 / F ADM Date: 02/26/25 Loc: HO.HHCX Attending Dr: Lisa Hagen MD Ordering Physician: Lisa Hagen MD Date of Service: 02/26/25 Procedure(s): XR ankle LT min 3V Accession Number(s): [id number] cc: Lisa Hagen MD EXAMINATION: XR ANKLE, LEFT CLINICAL INFORMATION: bilateral ankle swelling and pain COMPARISON: None available. TECHNIQUE: AP, lateral, and mortise views of the left ankle. FINDINGS: There is bimalleolar soft tissue swelling. The ankle mortise and subtalar joints are normal. No visible acute fracture or dislocation seen. There are moderate size calcaneal heel and retrocalcaneal enthesophytes. XR/XR ankle LT min 3V IMPRESSION: Bimalleolar soft tissue swelling likely ligament is injury. No acute fracture or dislocation. Moderate size calcaneal heel and retrocalcaneal enthesophytes. Electronically signed by: Migue Berry MD 02/26/2025 01:40 PM EDT Dictated By: Migue Berry MD Signed By: <Electronically signed by Migue Berry MD in OV> 02/26/25 1340 DD/ 1211 TD/TT: 02/26/25 1230 Powder Hand: JUSTINO Procedure Note Donotuseinterpreter, Image - 02/26/[address] [address] XRay Report Signed Patient: Daniela Olvera MMR#: [id number] : 1950cct:[id number] Age/Sex: 74 / FADM Date: 02/26/25 Loc: HO.HHCX Attending Dr: Lisa Hagen MD Ordering Physician: Lisa Hagen MD Date of Service: 02/26/25 Procedure(s): XR ankle LT min 3V Accession Number(s): [id number] cc: Lisa Hagen MD EXAMINATION: XR ANKLE, LEFT CLINICAL INFORMATION: bilateral ankle swelling and pain COMPARISON: None available. TECHNIQUE: AP, lateral, and mortise views of the left ankle. FINDINGS: There is bimalleolar soft tissue swelling. The ankle mortise and subtalar joints are normal. No visible acute fracture or dislocation seen. There are moderate size calcaneal heel and retrocalcaneal enthesophytes. XR/XR ankle LT min 3V IMPRESSION: Bimalleolar soft tissue swelling likely ligament is injury. No acute fracture or dislocation. Moderate size calcaneal heel and retrocalcaneal enthesophytes. Electronically signed by: Migue Berry MD 02/26/2025 01:40 PM EDT Dictated By: Migue Berry MD Signed By: <Electronically signed by Migue Berry MD in OV> 02/26/25 1340 DD/ 1211 TD/TT: 02/26/25 1230 Powder Hand: JUSTINO Lisa Hagen MD IMG XR PROCEDURES Final Result * XR Ankle 3+ Views Right (02/26/2025 12:09 PM EDT) Anatomical Region Laterality Modality Lower Extremities, Ankle Right Radiogr [facility]ic Imaging 02/26/2025 12:0 9 PM EDT Narrative 02/26/2025 1:38 PM EDT [address] [address] XRay Report Signed Patient: Daniela Olvera MR#: [id number] : 1950 Acct:[id number] Age/Sex: 74 / F ADM Date: 02/26/25 Loc: HO.HHCX Attending Dr: Lisa Hagen MD Ordering Physician: Lisa Hagen MD Date of Service: 02/26/25 Procedure(s): XR ankle RT min 3V Accession Number(s): [id number] cc: Lisa Hagen MD EXAMINATION: XR ANKLE, RIGHT CLINICAL INFORMATION: bilateral ankle swelling and pain COMPARISON: None available. TECHNIQUE: AP, lateral, and mortise views of the right ankle. FINDINGS: The ankle mortise and subtalar joints are normal. There is moderate retrocalcaneal and calcaneal heel spur. There is no visible acute fracture or dislocation. A small loose body at the tip of medial malleolus likely old injury. There is bimalleolar soft tissue swelling. XR/XR ankle RT min 3V IMPRESSION: No acute fracture or dislocation. Small bone fragment tip of medial malleolus likely old injury. Bimalleolar soft tissue swelling suggestive of ligamentous injury. Electronically signed by: Migue Berry MD 02/26/2025 01:34 PM EDT Dictated By: Migue Berry MD Signed By: <Electronically signed by Migue Berry MD in OV> 02/26/25 1334 DD/ 1209 TD/TT: 02/26/25 1230 Powder Hand: JUSTINO Procedure Note Donotuseinterpreter, Image - 02/26/[address] [address] XRay Report Signed Patient: Daniela Olvera MMR#: [id number] : 1950cct:[id number] Age/Sex: 74 / FADM Date: 02/26/25 Loc: HO.CX Attending Dr: Lisa Hagen MD Ordering Physician: Lisa Hagen MD Date of Service: 02/26/25 Procedure(s): XR ankle RT min 3V Accession Number(s): [id number] cc: Lisa Hagen MD EXAMINATION: XR ANKLE, RIGHT CLINICAL INFORMATION: bilateral ankle swelling and pain COMPARISON: None available. TECHNIQUE: AP, lateral, and mortise views of the right ankle. FINDINGS: The ankle mortise and subtalar joints are normal. There is moderate retrocalcaneal and calcaneal heel spur. There is no visible acute fracture or dislocation. A small loose body at the tip of medial malleolus likely old injury. There is bimalleolar soft tissue swelling. XR/XR ankle RT min 3V IMPRESSION: No acute fracture or dislocation. Small bone fragment tip of medial malleolus likely old injury. Bimalleolar soft tissue swelling suggestive of ligamentous injury. Electronically signed by: Migue Berry MD 02/26/2025 01:34 PM EDT Dictated By: Migue Berry MD Signed By: <Electronically signed by Migue Berry MD in OV> 02/26/25 1334 DD/ 1209 TD/TT: 02/26/25 1230 Powder Hand: JUSTINO Lisa Hagen MD IMG XR PROCEDURES Final Result * XR Knee 3 Views Bilateral (02/26/2025 11:59 AM EDT) Anatomical Region Laterality Modality Lower Extremities, Knee Bilateral [facility] 02/26/2025 11:5 9 AM EDT Narrative 02/26/2025 1:45 PM EDT [address] [address] XRay Report Signed Patient: Daniela Olvera MR#: [id number] : 1950 Acct:[id number] Age/Sex: 74 / F ADM Date: 02/26/25 Loc: HO.CX Attending Dr: Lisa Hagen MD Ordering Physician: Lisa Hagen MD Date of Service: 02/26/25 Procedure(s): XR Knee Paul 3V Accession Number(s): [id number] cc: Lisa Hagen MD EXAMINATION: Bilateral knee. CLINICAL INDICATION: Bilateral knee pain. COMPARISON: None. TECHNIQUE: 3 views each knee. FINDINGS: Right knee: AP, oblique and lateral views of right knee reveal total right knee prosthesis with prosthetic components in satisfactory alignment. No abnormal joint effusion loose bodies seen. No prosthetic loosening noted. Left knee: There is a total left knee prosthesis with prosthetic components in satisfactory alignment. No prosthetic loosening seen. No abnormal joint effusion or loose bodies seen. No visible fracture. XR/XR Knee Paul 3V IMPRESSION: Bilateral knee prosthesis in satisfactory alignment. There is no pulmonary metastatic loosening, joint effusion or loose bodies. No for acute fractures seen. Electronically signed by: Migue Berry MD 02/26/2025 01:43 PM EDT RP Dictated By: Migue Berry MD Signed By: <Electronically signed by Migue Berry MD in OV> 02/26/25 1343 DD/ 1159 TD/TT: 02/26/25 1230 Powder Hand: [facility] Procedure Note Donotuseinterpreter, Image - 02/26/2025 [place] [address] XRay Report Signed Patient: Daniela Olvera MMR#: [id number] : 1950cct:[id number] Age/Sex: 74 / FADM Date: 02/26/25 Loc: HO.HHCX Attending Dr: Lisa Hagen MD Ordering Physician: Lisa Hagen MD Date of Service: 02/26/25 Procedure(s): XR Knee Paul 3V Accession Number(s): [id number] cc: Lisa Hagen MD EXAMINATION: Bilateral knee. CLINICAL INDICATION: Bilateral knee pain. COMPARISON: None. TECHNIQUE: 3 views each knee. FINDINGS: Right knee: AP, oblique and lateral views of right knee reveal total right knee prosthesis with prosthetic components in satisfactory alignment. No abnormal joint effusion loose bodies seen. No prosthetic loosening noted. Left knee: There is a total left knee prosthesis with prosthetic components in satisfactory alignment. No prosthetic loosening seen. No abnormal joint effusion or loose bodies seen. No visible fracture. XR/XR Knee Paul 3V IMPRESSION: Bilateral knee prosthesis in satisfactory alignment. There is no pulmonary metastatic loosening, joint effusion or loose bodies. No for acute fractures seen. Electronically signed by: Migue Berry MD 02/26/2025 01:43 PM EDT Dictated By: Migue Berry MD Signed By: <Electronically signed by Migue Berry MD in OV> 02/26/25 1343 DD/ 1159 TD/TT: 02/26/25 1230 Powder Hand: JUSTINO Lisa Hagen MD IMG XR PROCEDURES Final Result * (ABNORMAL) POCT glycosylated hemoglobin (Hgb A1c) (02/26/2025 11:43 AM EDT) Hemoglobin A1C 6.2(A) 4.0 - 5.7 % QC Media Lot # [id number] Lot# Expiration Date 3,027 Blood Capillary blood specimen / Unknown 02/26/2025 11:43 AM EDT Lisa Hagen MD POINT OF CARE TEST ENTER/EDIT OR DERABLES Final Result * POCT glucose manually resulted (02/26/2025 11:42 AM EDT) Pathologist [facility] Glucose Blood, POC 110 60 - 200 mg/dL QC Media Lot # [id number] Lot# Expiration Date , Blood Capillary blood specimen / Unknown 02/26/2025 11:42 AM EDT Lisa Hagen MD POINT OF CARE TEST ENTER/EDIT OR DERABLES Final Result * Lipid Panel with Reflex to Direct LDL (11/16/2024 11:39 AM EDT) Triglycerides 89 <150 mg/dL [facility] Comment:Desirable Triglyceri de: less than 150 mg/dLBorderline High Triglyceride 150-199 mg/dLHigh Triglyceride: 200-499 mg/dLVery High Triglyceride: greater than or equal to 5OO mg/dL Cholesterol 118 <200 mg/dL [facility] Comment:Desirable Cholestero l: less than 200 mg/dLBorderline High Cholesterol: 200-239 mg/dLHigh Cholesterol: greater than 239 mg/dL LDL Cholesterol Calculated 45 <100 mg/dL [facility] Comment:Desirable LDL: less than 100 mg/dLNear Optimal/Above Optimal LDL: 110- 129 mg/dLBorderline High LDL: 130-159 mg/dLHigh LDL: 160-189 mg/dLVery High LDL: greater than or equal to 190 mg/dL HDL Cholesterol 56 >40 mg/dL [facility] Comment:Desirable HDL: great er than 40 mg/dL Note: This HDL assay may give artificially low results in patients with liver disease. Blood 11/16/2024 11:3 9 AM EDT 11/16/2024 1:04 PM EDT us Lisa Hagen MD LAB BLOOD ORDERABLES Final Resul t [facility] [address] [place] [phone] * BI Mammogram Screening Tomosynthesis Bilateral (01/13/2024 4:10 PM EDT) Anatomical Region Laterality Modality Breast Bilateral Mammography 01/13/2024 4:10 PM EDT Narrative 02/14/2024 7:45 AM EDT [facility] [address] [place] [address] Mammography Report Signed Patient: Daniela Olvera MR#: [id number] : 1950 Acct:[id number] Age/Sex: 73 / F ADM Date: 01/13/24 Loc: ALEJA Attending Dr: Lisa Hagen MD Ordering Physician: Lisa Hagen MD Results: 1Negative Date of Service: 01/13/24 Follow Up: 1 Year From Orig inal Mammogram Procedure(s): MM tomosynthesis screening BI Accession Number(s): [id number] cc: Lisa Hagen MD EXAMINATION: MM SCREENING DIGITAL BREAST [...] in OV> 02/14/24 0742 DD/ 1610 TD/TT: Powder Hand: Procedure Note Donotuseinterpreter, Image - 02/14/2024 [facility] [address] [place], [place] [address] Mammography Report Signed Patient: Daniela Olvera [facility]#: [id number] : 1Acct:[id number] Age/Sex: 73 / FADM Date: 01/13/24 Loc: ALEJA Attending Dr: Lisa Hagen MD Ordering Physician: Lisa Hagen MDResults: 1Negative Date of Service: 01/13/24Follow Up: 1 Year From Orig inal Mammogram Procedure(s): MM tomosynthesis screening BI Accession Number(s): [id number] cc: Lisa Hagen MD EXAMINATION: MM SCREENING DIGITAL BREAST [...] in OV> 02/14/24 0742 DD/ 1610 TD/TT: Powder Hand: Lisa Hagen MD IMG BI PROCEDURES Final Result * Colonoscopy (10/08/2017) Colonoscopy Normal Normal [facility] Unassigned Pcp HEALTH MAINTENANCE Final Result from Last 3 Months or Most Recently Relevant to Health Maintenance Insurance [facility] [employer] OPTIONS (O D-SNP) [place] [id number] Care Teams Lance Crewmember/Mlrs Sergeant Relationship Specialty Start Date End Date Lisa Hagen MD [address] [place] [address] PCP - General Family Medicine 08/11/12 Selwyn Crowley, MarzenaD [address] [place] [address] Pharmacist Internal Medicine 11/06/22
--- OUTSIDE RECORDS SUMMARY | 2025-05-23 17:22 | XMS_ITS | Encounter Summary ---
Author Organization [employer] Address [address] [facility] 7[address] [place] [address] Care Team Providers Care Weighmaster Lead Name Role Phone Lisa Hagen MD Primary Care Provider [phone] Selwyn Crowley PharmD Unavailable [phone] Encounter Details Date Type Department Care Team (Late st Contact Info) Description 10/23/2022 Orders Only [facility] [address] [place] [phone] Lisa Hagen MD [address] [place], [place] [phone] Primary hypertension (Primary Dx); Mild cognitive impairment [...] Description 06/11/2025 11:15 AM EDT Office Visit [facility] [address] [place] [phone] Lisa Hagen MD [address], [place] [phone] documented as of this encounter Visit Diagnoses Diagnosis Primary hypertension- Primary Unspecified essential hypertension Mild cognitive impairment Mild cognitive impairment, so stated documented in this encounter Care Teams Weighmaster Lead Relationship Specialty Start Date End Date Lisa Hagen MD [address] [place] [address] PCP - General Family Medicine 08/11/12 Selwyn Crowley, PharmD [address] [place] [address] Pharmacist Internal Medicine 11/06/22 documented as of this encounter
--- OUTSIDE RECORDS SUMMARY | 2025-05-23 17:22 | XMS_ITS | Clinical Summary ---
Author Organization [facility] Address [address] [facility] [address] [place] [address] Phone Care Team Providers Care Processing Lead Name Role Phone Lisa Hagen MD Primary Care Provider [phone] Social History Tobacco Use Types Packs/Day Years Used Date Smoking Tobacco: Never Assessed Education Answer Date Recorded Are you interested in more education? Not on alanis e 12/26/2022 Are you concerned about learning? Not on file 12/26/2022 No 12/26/2022 No 12/26/2022 Digital Access Answer Date Recorded No 01/26/2023 No 01/26/2023 Reliable internet access at home? Not on file 01/26/2023 Device with a working camera? Not on file Comments Unknown Sex and Gender Information Value Date Recorded Sex Assigned at Not on file Legal Sex Female 10:10 AM EDT Gender Identity Not on file Sexual Orientation Not on file Plan of Treatment Upcoming Encounters Date Type Department Care Team (Late st Contact Info) Description 06/06/2025 10:30 AM EDT Office Visit [facility] [address] [place] [address] 3rd Floor, [address] [place] [address] Mckinley Hrebert DO [address] [address] Shady Barbosa [address] [place] [address] Health Maintenance Due Date Last Done Comments Adult Td,Tdap Booster 1950 LIPID PANEL 1950 DEPRESSION SCREENING 1962 SMOKING Hx and SMOKELESS TOB ACCO SCREENING 12/07/1963 HEPATITIS C SCREENING 1968 MAMMOGRAM 1990 COLOGUARD 12/07/1995 COLONOSCOPY 12/07/1995 COLORECTAL CANCER SCREENING 12/07/1995 FIT TEST 12/07/1995 FOBT 12/07/1995 SIGMOIDOSCOPY 12/07/1995 VIRTUAL COLONOSCOPY 12/07/1995 PNEUMOCOCCAL VACCINES (50+ y ears) (1 of 1 - PCV) 2000 ZOSTER VACCINES (1 of 2) 2000 OSTEOPOROSIS SCREENING INITI AL (ONE-TIME) 12/07/2015 INFLUENZA VACCINE (#1) 2025 COVID-19 VACCINE (1 - 2023-2 5 season) 2025 RSV VACCINE (1 - 1-dose 75+ series) 2025 HEPATITIS A VACCINES Aged Out No long er eligible based on patient's age to complete this topic HIB VACCINES Aged Out No longer eligi ble based on patient's age to complete this topic MENINGOCOCCAL VACCINES (ACWY) Aged Out No longer eligible based on patient's age to complete this topic MENINGOCOCCAL VACCINES (B) Aged Out N o longer eligible based on patient's age to complete this topic Medical Devices Not on file Insurance [facility] DUAL MEDICARE REPLACEMENT MEDICARE PART A & B DUAL MEDICARE REPLACEMENT Member Subscriber Plan / Payer (Ef fective 2021-Present) Name:Daniela Olvera Relation to Subscriber:Self Name:Daniela Olvera Payer ID:[id number] (NAIC) Group ID:Not on file Type:Medicare Address: [place] [id number] MEDICARE PART A & B DUAL MEDICARE REPLACEMENT MEDICARE PART A & [place] [address] [address] [place] [address] DUAL MEDICARE REPLACEMENT MEDICARE PART A & B [facility] DUAL MEDICARE REPLACEMENT MEDICARE PART A & B Member Subscriber Plan / Payer (Ef fective 2022-Present) Name:Daniela Olvera Member ID:[id number] Relation to Subscriber:Self Name:Daniela Olvera Subscriber ID:[id number] Payer ID:[id number] Group ID:Not on file Type:Medicare Address: [employer] [address] DUAL MEDICARE REPLACEMENT MEDICARE PART A & B Member Subscriber Plan / Payer (Ef fective 2022-Present) Name:Daniela Olvera Member ID:[id number] Relation to Subscriber:Self Name:Daniela Olvera Subscriber ID:[id number] Payer ID:[id number] Group ID:Not on file Type:Medicare Address: [employer] [address] DUAL MEDICARE REPLACEMENT [place] [id number] MEDICARE PART A & [place] [address] DUAL MEDICARE REPLACEMENT [place] [id number] MEDICARE PART A & B [facility] DUAL MEDICARE REPLACEMENT MEDICARE PART A & B Care Teams Processing Lead Relationship Specialty Start Date End Date Lisa Hagen MD [address] [place] [address] PCP - General Family Medicine 01/05/22 Additional Source Comments The information contained in this document represents components of the legal health record. It is not the complete legal health record.[facility]ly [facility]
== END 2025-05-23 15:15 | disposition home or self-care (01) ==
LOC: HO.HGS 14:52
PROVIDERS: PCP Family Medicine; Visit Provider Surgery
DX: K43.9 Ventral hernia without obstruction or gangrene (principal)
CPT/HCPCS: 99203

== ENCOUNTER → 2025-05-23 14:51 | Outpatient (BNVA) | payer OTHER, SELFPAY | PROVIDERS: PCP Family Medicine; Visit Provider Surgery | DX: K43.9 Ventral hernia without obstruction or gangrene (principal) | CPT/HCPCS: 99202 ==

== ENCOUNTER 2025-07-03 15:27 | Outpatient (REF) | payer OTHER, SELFPAY ==
--- NOTE | ~2025-07-03 | CT_ITS ---
EXAMINATION: CT ABDOMEN AND PELVIS WITHOUT CONTRAST CLINICAL INFORMATION: Ventral hernia without obstruction or ganglion COMPARISON: None available. TECHNIQUE: Multidetector volumetric imaging was performed from the superior aspect of the liver through the pubic symphysis. Sagittal and coronal reformatted images were obtained on the technologist's workstation. This CT examination was performed using dose optimization techniques as appropriate, variously including the following: *Automated exposure control *Adjustment of mA and/or kV according to patient size (this includes techniques or standardized protocols for targeted exams where dose is matched to indication/reason for exam; i.e. extremities or head) *Use of iterative reconstruction technique FINDINGS: LUNG BASES: Lung bases are clear. No pericardial or pleural effusion. LIVER, GALLBLADDER, AND BILIARY TREE: No focal liver lesion. No biliary duct dilatation. Status postcholecystectomy. PANCREAS: Unremarkable. SPLEEN: Unremarkable. ADRENAL GLANDS: Unremarkable. KIDNEYS AND URETERS: No renal or ureteral calculi. No suspicious lesions. No hydronephrosis. Minimal perinephric stranding. BLADDER: Unremarkable. GASTROINTESTINAL TRACT: Nonobstructive bowel gas pattern. Stomach is nondistended. Colonic diverticulosis without evidence of diverticulitis. Appendix is not visualized. No inflammatory changes identified in the area of the appendix. ABDOMINAL WALL: There is ventral abdominal wall hernia involving the mid/inferior abdomen, including involving the umbilicus. This overall measures approximately 10.1 cm craniocaudal. There is a diastasis of the rectus abdominis muscles, with thinning of the musculature. This limits evaluation of the transverse measurement of the hernia. The dominant defect measures approximately 4.8 cm transverse. There is small bowel loops herniating through the superior portion of the hernia and more inferiorly, segment of the sigmoid colon is herniating into the ventral abdominal subcutaneous fat. No bowel obstruction is seen.. PERITONEUM: No free fluid. Nonspecific haziness in the mesentery. No free air. LYMPH NODES: No pathologically enlarged lymph nodes identified. VASCULAR: Normal caliber aorta. PELVIC VISCERA: Unremarkable. OSSEOUS STRUCTURES: Osteopenia. Disc degeneration in the visualized spine. No aggressive process seen.. CT/CT abdomen pelvis wo IV con IMPRESSION: * Ventral abdominal wall hernia involving the mid/inferior abdomen, overall measuring approximately 10.1 cm craniocaudal. There is a component of diastases of the rectus abdominis muscles, with thinning of the anterior wall musculature, as detailed above. There is small bowel and portion of the sigmoid colon herniating through the abdominal wall hernia into the ventral abdominal subcutaneous fat. No obstruction is seen., * Chronic diverticulosis without evidence of diverticulitis. * Additional findings and details as above. Fleischner guidelines were followed. Electronically signed by: Joe Watt MD 07/04/2025 08:47 AM [facility]
--- OUTSIDE RECORDS SUMMARY | 2025-07-03 18:12 | XMS_ITS | Clinical Summary ---
Author Organization [address] [facility] Address [address] [place] [address] Phone Care Team Providers Care Razor Sharpener Name Role Phone Lisa Hagen MD Primary Care Provider [phone] Allergies No known active allergies Encounters Date Type Department Care Team Description 05/28/2025 11:00 AM EDT Consult Orthopedic Surgery [facility] [address] [facility] [address] [place] [phone] Randolph Ayers DPM Venous insufficiency (Primary Dx); Localized edema; Hammertoes of both feet from Last 3 Months Social History Tobacco Use Types Packs/Day Years Used Date Smoking Tobacco: Never Assessed Comments Unknown Sex and Gender Information Value Date Recorded Sex Assigned at Not on file Legal Sex Female 8:47 AM EDT Gender Identity Not on file Sexual Orientation Not on file Plan of Treatment Upcoming Encounters Date Type Department Care Team (Late st Contact Info) Description 08/27/2025 3:30 PM EST Consult Vascular Surgery [facility] [address] [facility] [address] [place] [phone] Keiko Carlos PA [address] [facility] [address] [place] [address] Health Maintenance Due Date Last Done Comments Breast Cancer Screening 1950 Colorectal Cancer Screening: Colonoscopy 1950 Depression Screening 08/30/2024 Cholesterol Screening (Lipid Panel) 03/13/2025 Falls Risk Assessment 03/13/2025 Hepatitis C Screening 03/13/2025 Medicare Annual Wellness Visit 03/13/2025 Osteoporosis Screening (Bone Density Screening) 03/13/2025 Social Influencers of Health Screening 03/13/2025 COVID-19 Vaccine (2 - season) 2025 11/02/2023 Influenza Vaccine (#1) 2025 07/12/2021 Hypertension/CHF/CAD Annual BMP Blood Test 02/26/2026 02/26/2025 DTaP,Tdap,and Td Vaccines (3 - Td or Tdap) 05/11/2026 05/11/2016, 03/31/2002 Varicella Vaccines Aged Out 09/07/2007 No longer eligible based on patient's age to complete this topic Pneumococcal Vaccine: 50+ Years Completed 11/18/2021, 05/11/2016 Zoster Vaccines Completed 01/19/2022, 10/29, 04/20/2016, Additional history exists RSV Immunization Adult Patients Completed 11/15/2023 HIB Vaccines Aged Out No [...] to complete this topic RSV Immunization Patients Under 20 months Aged Out No longer eligible based on patient's age to complete this topic [place] [address] [address] [place] [address] MEDICARE Member Subscriber Plan / Payer (Ef fective 2022-Present) Name:Daniela Edwards Relation to Subscriber:Self Name:Daniela Olvera Payer ID:[id number] Group ID:[id number] Type:Not on file Address: [facility] [place] [id number] Care Teams Razor Sharpener Relationship Specialty Start Date End Date Lisa Hagen MD [address] [place] [phone] PCP - General Family Medicine 03/13/25
--- OUTSIDE RECORDS SUMMARY | 2025-07-03 18:12 | XMS_ITS | Clinical Summary ---
Author Organization [facility] Address [address] [place] [address] Phone Care Team Providers Care Grievance And Appeals Coordinator Name Role Phone Lisa Hagen MD Primary Care Provider [phone] Allergies Active Allergy Reactions Criticality Noted Date Comments Clarithromycin Hives High 09/26/2014 Hylan G-F 20 Hives High 07/15/2015 Lisinopril 04/07/2013 Medications atorvastatin (LIPITOR) 20 MG tablet Take 20 mg by mouth. 08/10/2024 5 Active bumetanide (BUMEX) 0.5 MG tablet Take 0.5 mg by mouth. 05/29/2025 6 Active chlorthalidone (HYGROTON) 25 MG tablet Take 25 mg by mouth every morning. 08/14/2024 Active cholecalciferol , vitamin D3, 25 mcg (1,000 unit) capsule Take 1,000 Units by mouth every morning. 11/08/2024 Active cyclobenzaprine (FLEXERIL) 10 MG tablet Take 10 mg by mouth daily. 11/29/2024 Active metoprolol succinate (TOPROL-XL) 50 MG 24 hr tablet Take 50 mg by mouth every morning. 05/29/2025 Active XARELTO 20 mg Tab TAKE 1 TABLET BY MOUTH EVERY EVENING WITH FOOD 05/29/2025 Active sertraline (ZOLOFT) 50 MG tablet Take 50 mg by mouth. 04/05/2024 Active Active Problems Problem Noted Date Diagnosed Date Encounter to establish care 06/06/2025 Assessment & Plan (06/06/2025 10:48 AM EDT): She was previously seen in our [place] location and is now here for ongoing care. She has PAF and is asymptomatic but is taking Xarelto without bleeding complication. 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/2025 Assessment & Plan (06/06/2025 10:49 AM EDT): She is prediabetic I went over in detail her diet both with her with an court interpreter and her daughter PAF (paroxysmal atrial fibrillation) 06/06/2025 Assessment & Plan (06/06/2025 10:49 AM EDT): She is asymptomatic from this and more than likely has obstructive sleep apnea causing it. She does take Xarelto without bleeding complication. Aortic aneurysm 06/06/2025 Assessment & Plan (06/06/2025 10:49 AM EDT): This patient has a minimally dilated aortic root at 38 mm we will follow-up on this with an echo in a year Encounters Date Type Department Care Team Description 06/06/2025 10:30 AM EDT Office Visit [facility] [address], [address] [place] [address] Mckinley Herbert, Shady Muhammad Encounter to establish care (Primary Dx); Shortness of breath; Diabetes 1.5, managed as type 2; PAF (paroxysmal atrial fibrillation); Aneurysm of ascending aorta without rupture from Last 3 Months Social History Tobacco [...] on file Sexual Orientation Not on file Last Filed Vital Signs Vital Sign Reading Time Taken Comments Blood Pressure 140/78 06/06/2025 10:36 AM EDT Pulse 57 06/06/2025 10:36 AM EDT Temperature - - Respiratory Rate - - Oxygen Saturation - - Inhaled Oxygen Concentration - - Weight 99.8 kg (220 lb) 06/06/2025 10:36 AM EDT Height 167.6 cm (5' 6 ) 06/06/2025 10:36 AM EDT Body Mass Index 35.51 06/06/2025 10:36 AM EDT Plan of Treatment Upcoming Encounters Date Type Department Care Team (Late st Contact Info) Description 06/06/2025 Procedure Pass Echo [facility] [place] [address] [address] [place] [address] 12/05/2025 9:30 AM EDT Office Visit [facility] [place] FrankelFabián [address] [place] [address], [address] [place] [address] Aline Delarosa, [address] [address] 06/06/2026 9:30 AM EDT Appointment [facility] [place] [address] Mckinley Herbert, DO [address] [place] [address] 06/17/2026 9:00 AM EDT Office Visit [facility] [address] [facility], [address] [place] [address] Mckinley Herbert, DO [address] [place] [phone] Health Maintenance Due Date Last Done Comments CREATININE LEVEL 1950 POTASSIUM LEVEL 1950 DEPRESSION SCREENING 1962 SMOKING Hx and SMOKELESS TOB ACCO SCREENING 12/07/1963 HEPATITIS C SCREENING 1968 LIPID PANEL 1968 COLOGUARD 12/07/1995 COLONOSCOPY 12/07/1995 COLORECTAL CANCER SCREENING 12/07/1995 FIT TEST 12/07/1995 FOBT 12/07/1995 SIGMOIDOSCOPY 12/07/1995 VIRTUAL COLONOSCOPY 12/07/1995 ZOSTER VACCINES (1 of 2) 2000 OSTEOPOROSIS SCREENING INITI AL (ONE-TIME) 12/07/2015 MAMMOGRAM 08/02/2020 08/02/2018 PNEUMOCOCCAL VACCINES (50+ y ears) (2 of 2 - PCV) 11/18/2022 11/18/2021 INFLUENZA VACCINE (#1) 2025 COVID-19 VACCINE (1 - 2024-2 6 season) 2025 DIABETIC EYE EXAM 06/06/2025 URINE MICROALBUMIN/CREATININ E RATIO 06/06/2025 HEMOGLOBIN A1C 08/28/2025 02/26/2025 BLOOD PRESSURE 12/05/2025 06/06/2025 RSV VACCINE (1 - 1-dose 75+ series) 2025 Adult Td,Tdap Booster 05/11/2026 05/11/2016 HEPATITIS A VACCINES Aged Out No long [...] topic Medical Devices Not on file Insurance MEDICARE PART A & B Member Subscriber Plan / Payer (Ef fective 2015-Present) Name:Daniela Olvera Member ID:[id number] Relation to Subscriber:Self Name:Daniela Olvera Subscriber ID:[id number] Payer ID:[id number] Group ID:Not on file Type:Medicare Address: [facility] [employer] [facility]. [address] [facility] [address] [facility] MEDICARE REPLACEMENT MEDICARE PART A & B [facility] MEDICARE REPLACEMENT MEDICARE PART A & B MEDICARE PART A & B MEDICARE PART A & B O MEDICARE REPLACEMENT [place] [id number] MEDICARE PART A & B MEDICARE PART A & B MEDICARE REPLACEMENT MEDICARE PART A & B Member Subscriber Plan / Payer (Ef fective 2015-Present) Name:Daniela Olvera Member ID:[id number] Relation to Subscriber:Self Name:Daniela Olvera Subscriber ID:[id number] Payer ID:[id number] Group ID:Not on file Type:Medicare Address: [employer] [address] MEDICARE REPLACEMENT MEDICARE PART A & B [facility] MEDICARE REPLACEMENT Care Teams Grievance And Appeals Coordinator Relationship Specialty Start Date End Date Lisa Hagen MD [address] [place] [phone] PCP - General Family Medicine 01/05/22 Additional Source Comments The information contained in this document represents components of the legal health record. It is not the complete legal health record.[facility]
== END 2025-07-03 15:28 | disposition home or self-care (01) ==
LOC: HO.CT 15:27
PROVIDERS: PCP Family Medicine; Visit Provider Surgery
DX: K43.9 Ventral hernia without obstruction or gangrene (principal)
CPT/HCPCS: 74176

== ENCOUNTER → 2025-07-03 15:29 | Outpatient (BNV) | payer OTHER, SELFPAY | PROVIDERS: PCP Family Medicine; Visit Provider Radiology Diagnostic Ultrasound | DX: K43.9 Ventral hernia without obstruction or gangrene (principal); K57.90 Diverticulosis of intestine, part unspecified, without perforation or abscess without bleeding | CPT/HCPCS: 74176 ==

== ENCOUNTER 2025-07-05 14:31 | Outpatient (AMB) | payer OTHER, SELFPAY ==
--- NOTE | 2025-07-05 14:41 | A.OFFVIS_ITS ---
Intake Visit Reasons: 6m follow up Emergency Specialist Required: Yes Emergency Specialist Name: #[id number] Accompanied by: Daughter Allergies clarithromycin (CLARITHROMYCIN) Allergy (Intermediate, Unverified 07/05/25 14:45) HIVES, hives/skin rash hylan G-F 20 (HYLAN G-F 20) Allergy (Intermediate, Unverified 07/05/25 14:45) HIVES/RASH, hives/skin rash lisinopril (LISINOPRIL) Allergy (Intermediate, Unverified 07/05/25 14:45) ANAPHYLAXIS Penicillin Allergy (Unknown, Uncoded 07/05/25 14:45) Unknown Medication List - Last Reconciled 07/05/25 by Ilda Downs CNP acetaminophen 500 mg PO Q6H PRN atorvastatin (Lipitor) 20 mg PO BEDTIME bumetanide 0.5 mg PO QAM chlorthalidone 25 mg PO QAM cholecalciferol (vitamin D3) (Vitamin D3) 25 mcg PO QAM cyclobenzaprine 10 mg PO BEDTIME donepezil 10 mg PO BEDTIME memantine (Namenda) 10 mg PO QPM metoprolol succinate ER 50 mg PO DAILY rivaroxaban (Xarelto) 20 mg PO DAILY sertraline 50 mg PO DAILY HPI Comments Details: 74-year-old woman with dementia with cognitive and behavioral symptoms.? She was here with her daughter, who was also her FUND ACCOUNTANT. Memory was not so good. She was more forgetful and repetitive, and needed more reminders. She was not cooking anymore. In the past, she was forgetting to turn off the stove. Sleep was okay. Mood was okay, although she could be agitated at times. She needed surgery for hernia. [facility] Medical History (Updated 07/05/25 @ 14:44 by Ilda Downs CNP) Morbid obesity Osteoarthritis CHF (congestive heart failure) Alzheimer's dementia Obstructive sleep apnea PAT (paroxysmal atrial tachycardia) Hypertension Supraumbilical hernia Surgical History (Updated 05/23/25 @ 15:23 by Dehsaun Chandler MD) History of cholecystectomy History of appendectomy Social History Alcohol intake: never Patient Tobacco Use Status: Never used Tobacco Review of Systems Const Denies chills, Denies daytime sleepiness, Denies difficulty sleeping, Denies fatigue, Denies fever(s), Denies frequent falls, Denies headache(s), Denies increased appetite, Denies poor appetite, Denies snoring, Denies weakness, Denies weight gain and Denies weight loss Eyes Denies loss of vision ENT Denies vertigo, Denies dizziness and Denies headache(s) Card Denies chest pain at rest, Denies chest pain with activity, Denies syncope, Denies leg edema and Denies palpitations Resp Denies snoring GI Denies constipation, Denies heartburn, Denies diarrhea and Denies nausea Denies urinary frequency, Denies urinary incontinence and Denies urinary urgency Musc Denies abnormal gait, Denies numbness and Denies tingling Skin/Breast Denies dry skin and Denies rash Neuro Denies abnormal gait, Denies vertigo, Denies dizziness, Denies syncope, Denies frequent falls, Denies headache(s), Denies lack of coordination, Denies loss of vision, Reports memory loss, Denies numbness, Denies restless legs, Denies seizure-like activity, Denies tingling, Denies paresthesias, Denies tremor(s) and Denies weakness Psych Denies anxiety, Denies depression, Denies auditory hallucinations, Reports memory loss, Denies visual hallucinations and Denies suicidal ideation Endo Denies fatigue and Denies palpitations Physical Exam Const Other: General Appearance:? normal, in no acute distress. Skin:? no rashes, no significant birthmarks. Heart:? S1, S2 normal, no murmurs. Lungs:? clear anteriorly and posteriorly. Extremities:? no edema. Psych:? alert, cooperative with exam. Tearful at times. Neuro Other: Mental Status:?Alert and awake with normal spontaneity of speech, fluency, and comprehension. Depressed affect and tearful at times. She was able to tell me that she was here with her daughter. She was not able to tell me the year. She was not able to tell me her age. She was able to tell me her month, but could not tell me her full birthday. Cranial Nerves:?Pupils are equal, round and reactive to light. External occular muscles are intact. Visual theodore are full. Face is symmetrical. Facial sensations are normal. Tongue is midline. Palate elevates symmetrically. Shoulder shrugging is normal. Hearing to bedside conversation is normal. Motor Examination:?DTRs trace. Sensory Exam:?....? Coordination:?No ataxia,?no titubation.? Gait Exam: Within normal limits. Extrapyramidal System:?No tremor, rigidity with normal facial expressions.? Pronator Drift:?Not present.? Involuntary Movements:?No tremors seen.? Speech:?Normal.? Assessment & Plan Assessment & Plan (1) Alzheimer's dementia: Code(s): G30.9 - Alzheimer's disease, unspecified; F02.80 - Dementia in other diseases classified elsewhere, unspecified severity, without behavioral disturbance, psychotic disturbance, mood disturbance, and anxiety Category: Medical Qualifiers: Alzheimer's disease onset: unspecified onset Dementia severity: unspecified severity Dementia behavioral or psychological symptom: with mood disturbance Qualified Code(s): G30.9 - Alzheimer's disease, unspecified; F02.83 - Dementia in other diseases classified elsewhere, unspecified severity, with mood disturbance Plan: Continue sertraline 50mg 1 tablet daily. Continue donepezil 10mg 1 tablet at bedtime. Continue memantine 10mg 1 tablet twice a day. Coding Level of Care Code Est Pt Level 4 (38047) Diagnoses Alzheimer's dementia with mood disturbance, unspecified dementia severity, unspecified timing of dementia onset G30.9; F02.83 Alzheimer's disease onset: unspecified onset Dementia severity: unspecified severity Dementia behavioral or psychological symptom: with mood disturbance
--- OUTSIDE RECORDS SUMMARY | 2025-07-05 17:46 | XMS_ITS | Clinical Summary ---
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 [address] [facility] [address] [place] [phone] Randolph Ayers DPM Venous insufficiency (Primary Dx); [...] 08/27/2025 3:30 PM EST Consult Vascular Surgery [facility] [address] [facility] [address] [place] [phone] Keiko Carlos PA [address] [facility] [address] [place] [address] Health Maintenance Due Date Last Done Comments [...] patient's age to complete this topic [place] [address] [address] [place] [address] MEDICARE Member Subscriber Plan / Payer (Ef fective 2022-Present) Name:Daniela Edwards Relation to Subscriber:Self Name:Daniela Olvera Payer ID:[id number] Group ID:[id number] Type:Not on file Address: [facility] [place] [id number] Care Teams Grain Mill Worker Relationship Specialty Start Date End Date Lisa Hagen MD [address] [place] [phone] PCP - General Family Medicine 03/13/25
--- OUTSIDE RECORDS SUMMARY | 2025-07-05 17:46 | XMS_ITS | Encounter Summary ---
Author Organization [facility] Address [address] [place] [address] [address], [place] [address] Care Team Providers Care Rn Lpn Lvn Name Role Phone Lisa Hagen MD Primary Care Provider [phone] Selwyn Crowley PharmD Unavailable [phone] Encounter Details Date Type Department Care Team (Late st Contact Info) Description 08/09/2022 Orders Only [facility] MEDICINE [address] [place] [phone] Lisa Hagen MD [address] [place] [phone] Social History Tobacco Use Types Packs/Day Years [...] on filedocumented in this encounter Care Teams Rn Lpn Lvn Relationship Specialty Start Date End Date Lisa Hagen MD [address] [place] [address] [phone] PCP - General Family Medicine 08/11/12 Selwyn Crowley, PharmD [address] [place] [address] [phone] Pharmacist Internal Medicine 11/06/22 documented as of this encounter
--- OUTSIDE RECORDS SUMMARY | 2025-07-05 17:46 | XMS_ITS | Encounter Summary ---
Author Organization [employer] Address [address] [place] [address] Care Team Providers Care [employer] Name Role Phone Lisa Hagen MD Primary Care Provider [phone] Selwyn Crowley PharmD Unavailable [phone] Encounter Details Date Type Department Care Team (Late st Contact Info) Description 07/03/2025 Orders Only [facility] External Provider, [facility] Social History Tobacco Use Types Packs/Day Years Used Date Smoking Tobacco: Never Passive Smoke Exposure: Never Smokeless Tobacco: Never Depression Answer Date Recorded Patient Health Questionnaire-9 Score 0 08/10/2024 Patient Health Questionnaire-9 Score 0 08/10/2024 Last PHQ-9: Questionnaire Data Not on file 1 10/11/2023 Housing Stability Answer Date Recorded What is your housing situation today? I have [employer] 06/11/[address] you li ve. Do you have problems with any of the following? None of the above 06/11/2025 Food Insecurity Answer Date Recorded Within the past 12 months, y ou worried that your food would run out before you got money to buy more: Never True 06/11/2025 Within the past 12 months,th e food you bought just didn't last and you didn't have enough money to get more: Never True Transportation Answer Date Recorded In the past 12 months, has l ack of transportation kept you from medical appts, meetings, work or from getting things needed for daily living? No 06/11/2025 Utilities Answer Date Recorded In the past 12 months, has t he electric, gas, oil or water company threatened to shut off services in your home? No 06/11/2025 Depression Answer Date Recorded Patient Health Questionnaire-2 Score 0 08/10/2024 Internet Access Answer Date Recorded Internet Access Q1 Yes 06/11/2025 Internet Access Q2 Not on file 06/11/2025 Comments No Sex and Gender Information Value [...] Author Blood Pressure < 150/90 Blood Pressure 130/74(2024 2:42 PM EDT) Selwyn Massey, PharmD Note: >60 years old without Hx of CKD or DM documented as of this encounter Procedures Procedure Name Priority Date/Time Associated Diagnosis Comments CT ABDOMEN PELVIS WO CONTRAST Routine 07/03/2025 4:25 PM EST documented in this encounter Results * CT Abdomen Pelvis w/o Contrast (07/03/2025 4:25 PM EST) Anatomical Region Laterality Modality Body, Pelvis, Abdomen Computed T omography 07/03/2025 4:25 PM EST Narrative 07/04/2025 8:50 AM EST [place] [address] CT Scan Report Signed Patient: Daniela Olvera MR#: [id number] : 1950 Acct:[id number] Age/Sex: 74 / F ADM Date: 07/03/25 Loc: HO.CT Attending Dr: Deshaun Chandler MD Ordering Physician: Deshaun Chandler MD Date of Service: 07/03/25 Procedure(s): CT abdomen pelvis wo IV con Accession Number(s): [id number] cc: Deshaun Chandler MD; Lisa Hagen MD Report Number: [id number]: Total DLP = 727.00 mGy-cm Reason for Exam: K43.9 - Ventral hernia without obstruction or gangrene EXAMINATION: CT ABDOMEN AND PELVIS WITHOUT CONTRAST CLINICAL INFORMATION: Ventral hernia without obstruction or ganglion COMPARISON: None available. TECHNIQUE: Multidetector volumetric imaging was performed from the superior aspect of the liver through the pubic symphysis. Sagittal and coronal reformatted images were obtained on the technologist's workstation. This CT examination was performed using dose optimization techniques as appropriate, variously including the following: *Automated exposure control *Adjustment of mA and/or kV according to patient size (this includes techniques or standardized protocols for targeted exams where dose is matched to indication/reason for exam; i.e. extremities or head) *Use of iterative reconstruction technique FINDINGS: LUNG BASES: Lung bases are clear. No pericardial or pleural effusion. LIVER, GALLBLADDER, AND BILIARY TREE: No focal liver lesion. No biliary duct dilatation. Status postcholecystectomy. PANCREAS: Unremarkable. SPLEEN: Unremarkable. ADRENAL GLANDS: Unremarkable. KIDNEYS AND URETERS: No renal or ureteral calculi. No suspicious lesions. No hydronephrosis. Minimal perinephric stranding. BLADDER: Unremarkable. GASTROINTESTINAL TRACT: Nonobstructive bowel gas pattern. Stomach is nondistended. Colonic diverticulosis without evidence of diverticulitis. Appendix is not visualized. No inflammatory changes identified in the area of the appendix. ABDOMINAL WALL: There is ventral abdominal wall hernia involving the mid/inferior abdomen, including involving the umbilicus. This overall measures approximately 10.1 cm craniocaudal. There is a diastasis of the rectus abdominis muscles, with thinning of the musculature. This limits evaluation of the transverse measurement of the hernia. The dominant defect measures approximately 4.8 cm transverse. There is small bowel loops herniating through the superior portion of the hernia and more inferiorly, segment of the sigmoid colon is herniating into the ventral abdominal subcutaneous fat. No bowel obstruction is seen.. PERITONEUM: No free fluid. Nonspecific haziness in the mesentery. No free air. LYMPH NODES: No pathologically enlarged lymph nodes identified. VASCULAR: Normal caliber aorta. PELVIC VISCERA: Unremarkable. OSSEOUS STRUCTURES: Osteopenia. Disc degeneration in the visualized spine. No aggressive process seen.. CT/CT abdomen pelvis wo IV con IMPRESSION: * Ventral abdominal wall hernia involving the mid/inferior abdomen, overall measuring approximately 10.1 cm craniocaudal. There is a component of diastases of the rectus abdominis muscles, with thinning of the anterior wall musculature, as detailed above. There is small bowel and portion of the sigmoid colon herniating through the abdominal wall hernia into the ventral abdominal subcutaneous fat. No obstruction is seen., * Chronic diverticulosis without evidence of diverticulitis. * Additional findings and details as above. Fleischner guidelines were followed. Electronically signed by: Joe Watt MD 07/04/2025 08:47 AM EST Dictated By: Joe Watt MD Signed By: <Electronically signed by Joe Watt MD in OV> 07/04/25 0847 DD/ 1625 TD/TT: 07/03/25 1648 Electrical Technician: LC Procedure Note Donotuseinterpreter, Image - 07/04/[address] [place] [address] [address] Scan Report Signed Patient: Daniela Olvera MMR#: [id number] : 1Acct:[id number] Age/Sex: 74 / FADM Date: 07/03/25 Loc: HO.CT Attending Dr: Deshaun Chandler MD Ordering Physician: Deshaun Chandler MD Date of Service: 07/03/25 Procedure(s): CT abdomen pelvis wo IV con Accession Number(s): [id number] cc: Deshaun Chandler MD; Lisa Hagen MD Report Number: [id number]: Total DLP = 727.00 mGy-cm Reason for Exam: K43.9 - Ventral hernia without obstruction or gangrene EXAMINATION: CT ABDOMEN AND PELVIS WITHOUT CONTRAST CLINICAL INFORMATION: Ventral hernia without obstruction or ganglion COMPARISON: None available. TECHNIQUE: Multidetector volumetric imaging was performed from the superior aspect of the liver through the pubic symphysis. Sagittal and coronal reformatted images were obtained on the technologist's workstation. This CT examination was performed using dose optimization techniques as appropriate, variously including the following: *Automated exposure control *Adjustment of mA and/or kV according to patient size (this includes techniques or standardized protocols for targeted exams where dose is matched to indication/reason for exam; i.e. extremities or head) *Use of iterative reconstruction technique FINDINGS: LUNG BASES: Lung bases are clear. No pericardial or pleural effusion. LIVER, GALLBLADDER, AND BILIARY TREE: No focal liver lesion. No biliary duct dilatation. Status postcholecystectomy. PANCREAS: Unremarkable. SPLEEN: Unremarkable. ADRENAL GLANDS: Unremarkable. KIDNEYS AND URETERS: No renal or ureteral calculi. No suspicious lesions. No hydronephrosis. Minimal perinephric stranding. BLADDER: Unremarkable. GASTROINTESTINAL TRACT: Nonobstructive bowel gas pattern. Stomach is nondistended. Colonic diverticulosis without evidence of diverticulitis. Appendix is not visualized. No inflammatory changes identified in the area of the appendix. ABDOMINAL WALL: There is ventral abdominal wall hernia involving the mid/inferior abdomen, including involving the umbilicus. This overall measures approximately 10.1 cm craniocaudal. There is a diastasis of the rectus abdominis muscles, with thinning of the musculature. This limits evaluation of the transverse measurement of the hernia. The dominant defect measures approximately 4.8 cm transverse. There is small bowel loops herniating through the superior portion of the hernia and more inferiorly, segment of the sigmoid colon is herniating into the ventral abdominal subcutaneous fat. No bowel obstruction is seen.. PERITONEUM: No free fluid. Nonspecific haziness in the mesentery. No free air. LYMPH NODES: No pathologically enlarged lymph nodes identified. VASCULAR: Normal caliber aorta. PELVIC VISCERA: Unremarkable. OSSEOUS STRUCTURES: Osteopenia. Disc degeneration in the visualized spine. No aggressive process seen.. CT/CT abdomen pelvis wo IV con IMPRESSION: * Ventral abdominal wall hernia involving the mid/inferior abdomen, overall measuring approximately 10.1 cm craniocaudal. There is a component of diastases of the rectus abdominis muscles, with thinning of the anterior wall musculature, as detailed above. There is small bowel and portion of the sigmoid colon herniating through the abdominal wall hernia into the ventral abdominal subcutaneous fat. No obstruction is seen., * Chronic diverticulosis without evidence of diverticulitis. * Additional findings and details as above. Fleischner guidelines were followed. Electronically signed by: Joe Watt MD 07/04/2025 08:47 AM [facility] Dictated By: Joe Watt MD Signed By: <Electronically signed by Joe Watt MD in OV> 07/04/25 0847 DD/ 1625 TD/TT: 07/03/25 1648 Electrical Technician: LC [facility] External Provider IMG CT PROCEDURES Final Result documented in this encounter Visit Diagnoses Not on filedocumented in this encounter Additional Health Concerns Assessment Noted Time PHQ-9 Depression Total Score: 0 08/10/20 24 10:16 AM EST documented as of this encounter Care Teams [employer] Relationship Specialty Start Date End Date iLsa Hagen MD [address] [place] [address] PCP - General Family Medicine 08/11/12 Selwyn Crowley, PharmD [address] [place] [address] Pharmacist Internal Medicine 11/06/22 documented as of this encounter
--- OUTSIDE RECORDS SUMMARY | 2025-07-05 17:46 | XMS_ITS | Clinical Summary ---
Author Organization [employer] Address [address] [facility] [address] [place] [address] Care Team Providers Care Certified Legal Investigator Name Role Phone Lisa Xavier MD Primary Care Provider [phone] Selwyn Crowley PharmD Unavailable [phone] Allergies Active Allergy Reactions Criticality Noted Date [...] TABLET BY MOUTH EVERY MORNING 3 Active sertraline (Zoloft) 50 MG tablet Take [...] EVERY DAY 30 tablet 3 5 Active bumetanide (Bumex) 0.5 MG tablet Take 1 tablet (0.5 mg) by mouth Once per day. 30 tablet 11 5 05/29/20 26 Active Active Problems Problem Noted Date Diagnosed Date Aortic regurgitation 06/15/2025 Assessment & Plan (06/15/2025 11:12 AM EDT): - mild on last echo in Mar 2025 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/2025 Assessment & Plan (06/22/2025 4:17 PM EDT): Latest A1c 6.2 on 02/26/25. Currently controlled with diet. Aortic aneurysm 06/06/2025 Abdominal hernia 03/10/2025 Assessment & Plan (06/15/2025 11:19 AM EDT): - Evaluated by Dr. Chandler - Reducible, and patient is asymptomatic / minimally symptomatic - Pre-op evaluation completed by her lamp cleaner in March 2025. - Upcoming pre-op at our clinic. - Patient seems to have a capacity to give an informed consent; patient states she does not want to have the surgery. Patient appears frustrated. - Recommended using abdominal brace. Assessment & Plan (03/10/2025 6:42 AM EDT): - It is an impressive size - Will refer to surgeon - Recommended using abdominal brace Ascending aorta dilation 05/09/2024 Assessment & Plan (06/15/2025 11:09 AM EDT): - [facility] - transthoracic echocardiogram on 04/11/24. Maximum diameter of ascending aorta 43 mm - most recent echo on 04/17/2025. Maximum diameter of ascending aorta 35 mm - Next echo in 1 year - optimize risk factor management Assessment & Plan (11/17/2024 8:06 PM EDT): - Following with [facility] - Last transthoracic echocardiogram: 04/11/24. Maximum diameter of ascending aorta 43 mm - Next echo in 1 year - optimize risk factor management Assessment & Plan (08/12/2024 4:22 PM EST): - Following with [facility] - Last transthoracic echocardiogram: 04/11/24. Maximum diameter of ascending aorta 43 mm - Next echo in 1 year - optimize risk factor management Assessment & Plan (05/09/2024 5:32 AM EDT): - Following with [facility] - Last transthoracic echocardiogram: 04/11/24. Maximum diameter of ascending aorta 43 mm - Next echo in 1 year - optimize risk factor management (HFpEF) heart failure with preserved ejection fr action 05/09/2024 Assessment & Plan (06/15/2025 11:36 AM EDT): - Following with [facility] cardiology, last seen in May 2025 - Most recent echo: 04/17/2025 Overall left ventricular systolic function is normal with a EF between 60 to 65%; normal diastolic function; mild aortic regurgitation; mild thickening of anterior mitral valve leaflet; no evidence of pulmonary hypertension; ascending aorta is slightly dilated, measuring up to 3.5 cm. - Echo: 04/11/24 Moderate concentric LVH, Left ventricular systolic EF 50-55%, mild thickening of anterior mitral valve, Ascending aorta 4.3 cm. Normal right ventricular systolic function. - Encourage CPAP use - Recommended to check her weight and vitals daily - Consider SGLT2i and/or MRA (taper down and off chlorthalidone or bumetanide, consider switching to carvedilol) Assessment & Plan (02/26/2025 10:53 AM EDT): [...] vitals daily Dyslipidemia 01/18/2024 Assessment & Plan (06/13/2025 5:03 PM EDT): - last lipid profile October 2024 - moderate intensity statin therapy is recommended per guideline - continue atorvastatin 20 mg at bedtime, consider increasing to 40 mg daily as tolerated - continue working on lifestyle modifications Assessment & Plan (02/26/2025 10:53 AM EDT): [...] incontinence supply Depression 03/26/2023 Assessment & Plan (06/15/2025 11:20 AM EDT): - 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 - continue sertraline 50 mg daily - discussed about adult day program, but patient declined Assessment & Plan (02/26/2025 10:54 AM EDT): - 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 Bumetanide was added in Apr 2024 Graduated from [email or web address] - HTN Assessment & Plan (02/26/2025 10:53 AM EDT): -Goal BP < 130/80 per ACC/AHA guideline (Treatment threshold >= 130) -BP at JNC-8 goal today -co-managed with lamp cleaner and previously our pharmacist -continue working on [...] was discontinued and metoprolol was started by lamp cleaner in 2022. Bumetanide was added in Apr 2024 Graduated from [email or web address] - HTN Assessment & Plan (11/17/2024 8:06 PM EDT): -Goal BP < 130/80 per ACC/AHA guideline (Treatment threshold >= 130) -BP at JNC-8 goal today -co-managed with lamp cleaner and previously our pharmacist -continue working on [...] was discontinued and metoprolol was started by lamp cleaner in 2022. Bumetanide was added in Apr 2024 Graduated from [facility] - HTN Assessment & Plan (08/10/2024 6:05 AM EST): -Goal BP < 130/80 per ACC/AHA guideline (Treatment threshold >= 130) -BP at JNC-8 goal today -co-managed with lamp cleaner and previously our pharmacist -continue working on [...] was discontinued and metoprolol was started by lamp cleaner in 2022. Bumetanide was added in Apr 2024 Graduated from [facility] - HTN Assessment & Plan (05/15/2024 6:18 [...] and discontinuing chlorthalidone. -seen by Selwyn Crowley [facility] on 10/25/23 for CDTM - HTN [...] chlorthalidone 25 mg daily -seen by Selwyn Crowley [facility] on 2/26/24 for CDTM - HTN Treatment Hx: Previously [...] ch[facility] 25 mg daily [facility] - HTN Treatment [...] [facility] 25 [facility] [...] [facility] 25 mg daily [facility] - HTN Previously tried amlodipine which was discontinued due to swelling, losartan was discontinued due to pt's concern about recall, lisinopril was discontinued due to cough --Follow-up in 3 months or sooner if any problem arises ERA (obstructive sleep apnea) 08/09/2022 Assessment & Plan (06/15/2025 11:23 AM EDT): - Sleep study on 06/08/22 at [facility] showed ERA. AutoPAP 8-20 cm H2O was recommended. - Seen by Dr. Cavazos on 02/03/23, [facility] teller manager. Recommended CPAP. - Patient was not interested in using CPAP Assessment & Plan (02/26/2025 10:55 AM EDT): - Sleep study on 06/08/22 at [facility] showed ERA. AutoPAP 8-20 cm H2O was recommended. - Seen by Dr. Cavazos on 02/03/23, [facility] teller manager. Recommended CPAP. - Patient was not interested in using CPAP - Will prescribe it again. Assessment & Plan (11/19/2024 4:33 PM EDT): - Sleep study on 06/08/22 at [facility] showed ERA. AutoPAP 8-20 cm H2O was recommended. - Seen by Dr. Cavazos on 02/03/23, [facility] teller manager. Recommended CPAP. - Patient was not interested in using CPAP - Will prescribe it again. Assessment & Plan (08/12/2024 4:21 PM EST): - Sleep study on 06/08/22 at [facility] showed ERA. AutoPAP 8-20 cm H2O was recommended. - Seen by Dr. Cavazos on 02/03/23, [facility] teller manager. Recommended CPAP. - Patient is not interested in using CPAP Assessment & Plan (05/15/2024 6:15 AM EDT): - Sleep study on 06/08/22 at [facility] showed ERA. AutoPAP 8-20 cm H2O was recommended. - Seen by Dr. Cavazos on 02/03/23 Assessment & Plan (10/01/2023 11:24 AM EST): - Sleep study on 06/08/22 at [facility] showed ERA. AutoPAP 8-20 cm H2O was recommended. - Seen by Dr. Cavazos on 02/03/23 - Called [facility], the office states the order was delayed, but the script has already been received by CPAP supplier Assessment & Plan (03/26/2023 6:49 AM EDT): - Sleep study on 06/08/22 at [facility] showed ERA. AutoPAP 8-20 cm H2O was recommended. - Seen by Dr. Cavazos on 02/03/23 - [facility], the office states the order was delayed, but the script has already been received by CPAP supplier Assessment & Plan (11/22/2022 7:13 AM EDT): Sleep study on 06/08/22 at [facility] showed ERA. AutoPAP 8-20 cm H2O was recommended. Pt does not have CPAP. Will check the status Her HALEY may improve with CPAP use Paroxysmal atrial fibrillation (CMS/HCC) 022 Assessment & Plan (06/15/2025 11:35 AM EDT): -Followed by [facility], last seen in May 2025 -Currently on Rivaroxaban (Xarelto) for anticoagulation -Metoprolol for BP and rate control -Continue current medications -Most recent echo: 04/17/2025 EF 60 to 65% -Encouraged to use CPAP, but patient is not enthusiastic - Discontinue Rivaroxaban at least 2 days prior to the procedure, and resume when the surgeon confirms adequate hemostasis. Assessment & Plan (02/26/2025 10:54 AM EDT): -Followed by [facility] - -Currently on Rivaroxaban (Xarelto) for anticoagulation -Metoprolol for BP and rate control -Continue current medications -Most recent echo: 04/11/24 Moderate concentric LVH, Left ventricular systolic EF 50-55%, mild thickening of anterior mitral valve, normal RV and RA -Encouraged to use CPAP, but patient is not enthusiastic Assessment & Plan (11/19/2024 4:37 PM EDT): -Followed by [facility] - [id number] Score: 4 -Currently on Rivaroxaban (Xarelto) for anticoagulation -Metoprolol for BP and rate control -Continue current medications -Most recent echo: 04/11/24 Moderate concentric LVH, Left ventricular systolic EF 50-55%, mild thickening of anterior mitral valve, normal RV and RA -Encouraged to use CPAP, but patient is not enthusiastic Assessment & Plan (08/10/2024 6:12 AM EST): -Followed by [facility] -[id number] Score: 4 -Currently on Rivaroxaban (Xarelto) for anticoagulation -Metoprolol for BP and rate control -Continue current medications -Most recent echo: 04/11/24 Moderate concentric LVH, Left ventricular systolic EF 50-55%, mild thickening of anterior mitral valve, normal RV and RA -Encouraged to use CPAP, but patient is not enthusiastic Assessment & Plan (05/15/2024 6:17 AM EDT): -Followed by [facility] -Currently on Rivaroxaban (Xarelto) for anticoagulation -Diltiazem for BP and rate control -Continue current medications -Most recent echo: 04/11/24 Moderate concentric LVH, Left ventricular systolic EF 50-55%, mild thickening of anterior mitral valve, normal RV and RA -Encouraged to use CPAP, but patient is not enthusiastic Assessment & Plan (01/18/2024 3:39 PM EDT): -Followed by [facility] -Currently on Rivaroxaban (Xarelto) for anticoagulation -Diltiazem for BP and rate control -Continue current medications -Encouraged to use CPAP once she receives the supply Assessment & Plan (10/01/2023 11:26 AM EST): -Followed by [facility] -Currently on Rivaroxaban (Xarelto) for anticoagulation -Diltiazem for BP and rate control -Continue current medications -Encouraged to use CPAP once she receives the supply Assessment & Plan (03/26/2023 6:51 AM EDT): -Followed by Dr. Palomo at [facility] on 03/16/22. -Currently on Rivaroxaban (Xarelto) for anticoagulation -Diltiazem for BP and rate control -Continue current medications -Encouraged to use CPAP once she receives the supply Assessment & Plan (11/17/2022 2:50 PM EDT): Completed Stress-Test and Echocardiogram -Followed by Dr. Palomo at [facility] on 03/16/22. -Pt was found to have paroxysmal atrial fibrillation and was started on Rivaroxaban (Xarelto) -Dr. Palomo ordered a Sleep Study Alzheimer's dementia ([facility]) 08/09/2022 Assessment & Plan (06/15/2025 11:23 AM EDT): - following with neurologist, Dr. Leavitt, last seen on 07/06/24. Upcoming appointment. - 12/30/21 MRI no acute infarct or mass. Chronic microvascular ischemic change. Diffuse volume loss. - currently prescribed sertraline 10 mg daily, memantine 10 mg bid, and sertraline 50 mg daily - patient is socially withdrawn. 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 - PCP called Dr. Leavitt's office and requested an assessment on patient's capacity to give an informed consent at next visit Assessment & Plan (02/26/2025 10:55 AM EDT): [...] family members would like to have more CABIN FURNISHINGS INST[employer]ER hours because patient currently has 17 hours per week, and it is not adequate to take care of the patient. She is alone when CABIN FURNISHINGS INSTALLER leaves. Patient will benefit from more CABIN FURNISHINGS INSTALLER services to prevent social isolation and to [...] family members would like to have more CAB[employer] FURNISHINGS INST[employer]ER hours because patient currently has 17 hours per week, and it is not adequate to take care of the patient. She is alone when CABIN FURNISHINGS INSTALLER leaves. Patient will benefit from more CABIN FURNISHINGS INSTALLER services to prevent social isolation and to [...] WRITTEN ON 03/26/2023 6:47 AM BY LISA XAVIER MD -12/30/21 MRI no acute infarct or mass. Chronic microvascular ischemic change. Diffuse volume loss. 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 She is alone when CABIN FURNISHINGS INSTALLER leaves. Patient will benefit from more CABIN FURNISHINGS INSTALLER services to prevent social isolation and to improve safety by increasing supervised hours. History of cholecystectomy 09/11/2014 Osteoarthritis of knees, bilateral 10/25/2012 Assessment & Plan (06/15/2025 11:19 AM EDT): s/p Right TKR in Apr 2016. s/p Left TKR on 04/28/18 Orthopedist: [facility] -Continue judicious use of analgesics. -Previously received physical therapy Assessment & Plan (02/26/2025 10:55 AM EDT): [...] 03/19/2010 Impaired fasting glucose Assessment & Plan (06/13/2025 5:04 PM EDT): -Hgb A1C 6.2% on 02/26/25 -continue lifestyle modifications -recheck in 12 months Assessment & Plan (03/01/2025 9:45 PM EDT): [...] Encounters Date Type Department Care Team Description 07/03/2025 Orders Only [facility] External Provider, [facility] 06/22/2025 2:30 PM EDT Office Visit [facility] [address] [place] [phone] Karina Heller MD Diabetes 1.5, managed as type 2 (HCC) (Primary Dx); Preoperative clearance 06/22/2025 Travel 06/21/2025 Telephone [facility] [address] [place] [phone] Lisa Xavier MD CHARTPREP 06/11/2025 11:15 AM EDT Office Visit [address] [phone] Lisa Xavier MD Primary hypertension (Primary Dx); Impaired fasting glucose; Dyslipidemia; Chronic heart failure with preserved ejection fraction (HFpEF) ([facility]); Ascending aorta dilation (CMS/HCC); Paroxysmal atrial fibrillation (CMS/HCC) ([facility]); Nonrheumatic aortic valve insufficiency; Class 1 obesity due to excess calories with serious comorbidity and body mass index (BMI) of 33.0 to 33.9 in adult; Ventral hernia without obstruction or gangrene; Primary osteoarthritis of both knees; Current moderate episode of major depressive disorder without prior episode (CMS/HCC) ([facility]); Alzheimer's dementia, unspecified dementia severity, unspecified timing of dementia onset, unspecified whether behavioral, psychotic, or mood disturbance or anxiety (CMS/HCC) ([facility]); ERA (obstructive sleep apnea) 06/11/2025 Travel 06/08/2025 Telephone [facility] [address] [place] [phone] Lisa Xavier MD chartprep 05/29/[address] [address] Lisa Xavier MD Appointment Request 05/29/[address] [address] Lisa Xavier MD 05/24/[address] [phone] Lisa Xavier MD Pre-op Visit 04/25/[address] [phone] Lisa Xavier MD may recall from Last 3 Months Immunizations Immunization Administration [...] Sign Reading Time Taken Comments Blood Pressure 130/74 06/22/2025 2:42 PM EDT Pulse 59 06/22/2025 2:42 PM EDT Temperature 36.7 C (98 F) 06/22/2025 2:42 PM EDT Respiratory Rate 20 06/22/2025 2:42 PM EDT Oxygen Saturation 94% 06/22/2025 2:42 PM EDT Inhaled Oxygen Concentration - - Weight 100 kg (220 lb 6 oz) 06/22/2025 2:42 PM E DT Height 161.5 cm (5' 3.58 ) 06/22/2025 2:42 PM ED T Body Mass Index 38.33 06/22/2025 2:42 PM EDT Plan of Treatment Health Maintenance Due Date Last Done Comments CT Colonography 1950 FIT DNA/Cologuard 1950 FIT 1950 FOBT 1950 Sigmoidoscopy 1950 Diabetes: Foot Exam 1960 Eye Exam 1960 Diabetes: Urine Protein Screening 1969 COVID-19 Vaccine ( season) 2025 11/02/2023, 03/12/2022, 07/30/2021, Additional history exists Influenza Vaccine (#1) 2025 07/12/2021 Depression Screening 08/10/2025 08/10/2024, 08/10/20 Diabetes: Hemoglobin A1C 08/28/2025 025, 05/09/2024, 09/24/2023, Additional history exists Lipid Panel 11/16/2025 11/16/2024, 04/30, 09/24/2023, Additional history exists Mammogram 01/12/2026 01/13/2024, 06/30, 07/11/2021, Additional history exists DTaP/Tdap/Td Vaccines (2 - Td or Tdap) 05/11/2026 05/11/2016, 03/31/2002 Alcohol/Substance Use Screening 06/11/2026 06/11/2025 SDOH Screening 06/11/2026 06/11/2025 Tobacco Screening 06/22/2026 06/22/2025 Colonoscopy 10/08/2027 10/08/2017 Colorectal Cancer Screening 10/08/2027 Pneumococcal Vaccine: 50+ Years Completed 11/18/2021, 05/11/2016 [...] WO CONTRAST Routine 07/03/2025 4:25 PM EST POCT GLYCOSYLATED HEMOGLOBIN (HGB A1C) Routine 02/26/2025 11:43 AM EDT Impaired fasting glucose LIPID PANEL WITH REFLEX TO DIRECT LDL Routine 11/16/2024 11:39 AM EDT Dyslipidemia BI MAMMOGRAM SCREENING TOMOSYNTHESIS BILATERAL Routine 01/13/2024 4:10 PM EDT HM COLONOSCOPY Routine 10/08/2017 from Last 3 Months or Most Recently Relevant to Health Maintenance Results * CT Abdomen Pelvis w/o Contrast (07/03/2025 4:25 PM EST) Anatomical Region Laterality Modality Body, Pelvis, Abdomen Computed T omography 07/03/2025 4:25 PM EST Narrative 07/04/2025 8:50 AM EST [place] [address] CT Scan Report Signed Patient: Daniela Olvera MR#: [id number] : 1950 Acct:[id number] Age/Sex: 74 / F ADM Date: 07/03/25 Loc: HO.CT Attending Dr: Deshaun Chandler MD Ordering Physician: Deshaun Chandler MD Date of Service: 07/03/25 Procedure(s): CT abdomen pelvis wo IV con Accession Number(s): [id number] cc: Deshaun Chandler MD; Lisa Xavier MD Report Number: [id number]: Total DLP = 727.00 mGy-cm Reason for [...] Watt MD in OV> 07/04/25 0847 DD/ 24 TD/TT: 07/03/25 1648 Freight Engineer: LC Procedure Note Donotuseinterpreter, Image - 07/04/[address] [place] [address] [address] Scan Report Signed Patient: Daniela Olvera MMR#: [id number] : 1950cct:[id number] Age/Sex: 74 / FADM Date: 07/03/25 Loc: HO.CT Attending Dr: Deshaun Chandler MD Ordering Physician: Deshaun Chandler MD Date of Service: 07/03/25 Procedure(s): CT abdomen pelvis wo IV con Accession Number(s): [id number] cc: Deshaun Chandler MD; Lisa Xavier MD Report Number: [id number]: Total DLP = 727.00 mGy-cm Reason for [...] by: Joe Watt MD 07/04/2025 08:47 AM [facility] Dictated By: Joe Watt MD Signed By: <Electronically signed by Joe Watt MD in OV> 07/04/25 0847 DD/ 1625 TD/TT: 07/03/25 1648 Freight Engineer: HB [facility] External Provider IMG CT PROCEDURES Final Result * (ABNORMAL) POCT glycosylated hemoglobin (Hgb A1c) (02/26/2025 11:43 AM EDT) Hemoglobin A1C 6.2(A) 4.0 - 5.7 % QC Media Lot # [id number] Lot# Expiration Date Blood Capillary blood specimen / Unknown 02/26/2025 11:43 AM EDT Lisa Xavier MD POINT OF CARE TEST ENTER/EDIT OR DERABLES Final Result * Lipid Panel with Reflex to Direct LDL (11/16/2024 11:39 AM EDT) Triglycerides 89 <150 mg/dL [facility] Comment:Desirable Triglyceri de: less than 150 mg/dLBorderline High Triglyceride 150-199 mg/dLHigh Triglyceride: 200-499 mg/dLVery High Triglyceride: greater than or equal to 5OO mg/dL Cholesterol 118 <200 mg/dL [facility] Comment:Desirable Cholestero l: less than 200 mg/dLBorderline High Cholesterol: 200-239 mg/dLHigh Cholesterol: greater than 239 mg/dL LDL Cholesterol Calculated 45 <100 mg/dL [facility] Comment:Desirable LDL: less than 100 mg/dLNear Optimal/Above Optimal LDL: 110- 129 mg/dLBorderline High LDL: 130-159 mg/dLHigh LDL: 160-189 mg/dLVery High LDL: greater than or equal to 190 mg/dL HDL Cholesterol 56 >40 mg/dL [facility] Comment:Desirable HDL: great er than 40 mg/dL Note: This HDL assay may give artificially low results in patients with liver disease. Blood 11/16/2024 11:3 9 AM EDT 11/16/2024 1:04 PM EDT us Lisa Xavier MD LAB BLOOD ORDERABLES Final Resul t [facility] [address] [place] [address] [phone] * BI Mammogram Screening Tomosynthesis Bilateral (01/13/2024 4:10 PM EDT) Anatomical Region Laterality Modality Breast Bilateral Mammography 01/13/2024 4:10 PM EDT Narrative 02/14/2024 7:45 AM EDT [address] [place] [address] Mammography Report Signed Patient: Daniela Olvera MR#: [id number] : 1950 Acct:[id number] Age/Sex: 73 / F ADM Date: 01/13/24 Loc: [facility] Attending Dr: Lisa Xavier MD Ordering Physician: Lisa Xavier MD Results: 1Negative Date of Service: 01/13/24 Follow Up: 1 Year From Orig inal Mammogram Procedure(s): MM tomosynthesis screening BI Accession Number(s): [id number] cc: Lisa Xavier MD EXAMINATION: MM SCREENING DIGITAL BREAST TOMOSYNTHESIS, [...] signed by Kiley Ardon MD in OV> 02/14/24741 DD/ 09 TD/TT: Freight Engineer: Procedure Note Donotuseinterpreter, Image - 02/14/[facility] [address] [place], [place] [address] Mammography Report Signed Patient: Daniela Olvera MMR#: [id number] : 1950cct:[id number] Age/Sex: 73 / FADM Date: 01/13/24 Loc: [facility] Attending Dr: Lisa Xavier MD Ordering Physician: Lisa Xavier MDResults: 1Negative Date of Service: 01/13/24Follow Up: 1 Year From Orig inal Mammogram Procedure(s): MM tomosynthesis screening BI Accession Number(s): [id number] cc: Lisa Xavier MD EXAMINATION: MM SCREENING DIGITAL BREAST TOMOSYNTHESIS, [...] signed by Kiley Ardon MD in OV> 02/14/24741 DD/ 1610 TD/TT: Freight Engineer: Lisa Xavier MD IMG BI PROCEDURES Final Result * Colonoscopy (10/08/2017) Colonoscopy Normal Normal [facility] [facility] Unassigned Pcp HEALTH MAINTENANCE Final Result from Last 3 Months or Most Recently Relevant to Health Maintenance Insurance [facility] [employer] OPT[employer] (O D-SNP) Care Teams Certified Legal Investigator Relationship Specialty Start Date End Date Lisa Xavier MD [address] [place] [address] PCP - General Family Medicine 08/11/12 Selwyn Crowley, MarzenaD [address] [place] [address] Pharmacist Internal Medicine 11/06/22
--- OUTSIDE RECORDS SUMMARY | 2025-07-05 17:46 | XMS_ITS | Encounter Summary ---
Author Organization [employer] Address [address] [facility] 7t [place] [address] Care Team Providers Care Adobe Layer Helper Name Role Phone Lisa Hagen MD Primary Care Provider [phone] Selwyn Crowley PharmD Unavailable [phone] Reason for Visit * Reason Onset Date Comments Pre-op Visit 05/24/2025 Encounter Details Date Type Department Care Team (Late st Contact Info) Description 05/24/2025 Telephone [facility] [address] [place] [address] Lisa Hagen MD [address] [place], [place] [phone] Pre-op Visit Social History Tobacco Use Types Packs/Day Years Used Date Smoking Tobacco: Never Passive Smoke Exposure: Never Smokeless Tobacco: Never Depression Answer Date Recorded Patient Health Questionnaire-9 Score 0 08/10/2024 Patient Health Questionnaire-9 Score 0 08/10/2024 Last PHQ-9: Questionnaire Data Not on file 1 10/11/2023 Housing Stability Answer Date Recorded What is your housing situation today? I have modesta clakre 01/11/[address] you li [...] encounter Miscellaneous Notes * Telephone Encounter - Jimmie Little - 05/25/2025 3:33 PM EDT TC placed to pt for scheduling of pre-op . No answer VM left * Telephone Encounter - Jimmie Little - 05/24/2025 1:26 PM EDT Date of Surgery: TBD Surgical procedure being done: Repair of large supra Umbilical Hernia Type of anesthesia: general anesthesia Lab needed: Yes EKG: Yes Surgeon's name: Dr Deshaun Chandler Facility name: [facility] Surgeon's office number: [phone] Surgeon's office fax number: [phone] Contact name (person you spoke with): Rita Deluca office note from surgeon requested: Yes documented in this encounter Plan of Treatment Not on file documented as of this encounter Goals Goal Patient Goal Type Associated Problems Recent Progress Patient-Stated? Author Blood Pressure < 150/90 Blood Pressure 130/74(2024 2:42 PM EDT) No Selwyn Crowley, PharmD Note: >60 years old without Hx of CKD or DM documented as of this encounter Visit Diagnoses Not on filedocumented in this encounter Additional Health Concerns Assessment Noted Time PHQ-9 Depression Total Score: 0 08/10/20 24 10:16 AM EST documented as of this encounter Care Teams Adobe Layer Helper Relationship Specialty Start Date End Date Lisa Hagen MD [address] [place] [address] PCP - General Family Medicine 08/11/12 Selwyn Crowley PharmD [address] [place] [address] Pharmacist Internal Medicine 11/06/22 documented as of this encounter
--- OUTSIDE RECORDS SUMMARY | 2025-07-05 17:46 | XMS_ITS | Encounter Summary ---
Author Organization [employer] Address [address] [facility] 7t [place] [address] Care Team Providers Care Statistical Methods Professor Name Role Phone Lisa Hagen MD Primary Care Provider [phone] Selwyn Crowley PharmD Unavailable [phone] Encounter Details Date Type Department Care Team ([facility] st Contact Info) Description 07/17/2024 Telephone [facility]INE [address] [place], [place] [phone] Lisa Hagen MD [address] [place], [place] [phone] Social History Tobacco Use Types Packs/Day Years [...] 130/74(2024 2:42 PM EDT) No Selwyn Crowley, Vinicius Note: >60 years old without Hx of CKD or DM documented as of this encounter Visit Diagnoses Not on filedocumented in this encounter Additional Health Concerns Assessment Noted Time PHQ-9 Depression Total Score: 0 01/18/20 24 3:26 PM EDT documented as of this encounter Care Teams Statistical Methods Professor Relationship Specialty Start Date End Date Lisa Hagen MD [address] [place] [address] PCP - General Family Medicine 08/11/12 Selwyn Crowley, PharmD [address] [place] [address] Pharmacist Internal Medicine 11/06/22 documented as of this encounter
--- OUTSIDE RECORDS SUMMARY | 2025-07-05 17:46 | XMS_ITS | Clinical Summary ---
Author Organization Located Within [facility] Address [address] [facility] [address] [place] [address] Phone Care Team Providers Care Ornamental Iron Worker Name Role Phone Lisa Hagen MD Primary Care Provider [phone] Allergies Active Allergy Reactions Criticality Noted Date [...] EDT): She was previously seen in our [place] location and is now here for ongoing care. She has PAF and is asymptomatic but is taking Xarelto without bleeding complication. 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/2025 Assessment & Plan (06/06/2025 10:49 AM EDT): She is prediabetic I went over in detail her diet both with her with an auto transmission mechanic and her daughter PAF (paroxysmal atrial fibrillation) [...] Description 06/06/2025 10:30 AM EDT Office Visit [facility] [address] Floor, [address] [place] [address] Mckinley Herbert, Shady Muhammad Encounter [...] Info) Description 06/06/2025 Procedure Pass Echo Lab [place] [address] [address] [place] [address] 12/05/2025 9:30 AM EDT Office Visit [facility] Orville FrankelFabián [address] [place] [address], [address] [place] [address] Aline Delarosa, [address] [address] 06/06/2026 9:30 AM EDT Appointment Echo [facility] [place] [address] Mckinley Herbert, DO [address] [place] [address] 06/17/2026 9:00 AM EDT Office Visit [facility] [address] [facility], [address] [place] [address] Mckinley Herbert, DO [address] [place] [address] Health Maintenance Due Date Last Done Comments [...] Payer (Ef fective 2015-Present) Name:Daniela Olvera Member ID:[id number] Relation to Subscriber:Self Name:Daniela Olvera Subscriber ID:[id number] Payer ID:[id number] Group ID:Not on file Type:Medicare Address: [facility] [employer] [facility]. [address] [facility] [place] [address] [facility] MEDICARE REPLACEMENT MEDICARE PART A & B [facility] MEDICARE REPLACEMENT MEDICARE PART A & B MEDICARE PART A & B MEDICARE PART A & B O MEDICARE REPLACEMENT TRUDI MENDEZ [id number] MEDICARE PART A & B MEDICARE PART A & B MEDICARE REPLACEMENT MEDICARE PART A & B Member Subscriber Plan / Payer (Ef fective 2015-Present) Name:Daniela Olvera Member ID:[id number] Relation to Subscriber:Self Name:Daniela Olvera Subscriber ID:[id number] Payer ID:[id number] Group ID:Not on file Type:Medicare Address: [facility] [address] MEDICARE REPLACEMENT MEDICARE PART A & B [facility] MEDICARE REPLACEMENT Care Teams Ornamental Iron Worker Relationship Specialty Start Date End Date Lisa Hagen MD [address] [place] [address] PCP - General Family Medicine 01/05/22 Additional Source Comments The information contained in this document represents components of the legal health record. It is not the complete legal health record.[facility]
--- OUTSIDE RECORDS SUMMARY | 2025-07-05 17:47 | XMS_ITS | Encounter Summary ---
Author Organization [employer] Address [address] [place] [address] 7 [place] [address] Care Team Providers Care Confectionery Cooker Name Role Phone Lisa Hagen MD Primary Care Provider [phone] Selwyn Crowley PharmD Unavailable [phone] Encounter Details Date Type Department Care Team ([facility] st Contact Info) Description 10/23/2022 Orders Only [facility] [address] [place] [address] [phone] Lisa Hagen MD [address] [place], [place] [phone] Primary hypertension (Primary Dx); Mild cognitive impairment [...] stated documented in this encounter Care Teams Confectionery Cooker Relationship Specialty Start Date End Date Lisa Hagen MD [address] [place] [address] [phone] PCP - General Family Medicine 08/11/12 Selwyn Crowley, PharmD [address] [place] [address] Pharmacist Internal Medicine 11/06/22 documented as of this encounter
--- OUTSIDE RECORDS SUMMARY | 2025-07-05 17:47 | XMS_ITS | Encounter Summary ---
Author Organization [employer] Address [address] [facility] 7t [place] [address] Care Team Providers Care Temple Meat Cutter Name Role Phone Lisa Hagen MD Primary Care Provider [phone] Selwyn Crowley PharmD Unavailable [phone] Encounter Details Date Type Department Care Team ([facility] st Contact Info) Description 11/27/2024 Orders Only [facility] [address] [place], [place] [phone] Lisa Hagen MD [address] [place], [place] [phone] Low serum potassium (Primary Dx) Social History [...] EDT) Magnesium 2.3 1.6 - 2.6 mg/dL [facility] Blood Venous blood specimen / Unknown 11/27/2024 12:12 PM EDT 11/27/2024 1:47 PM EDT us Lisa Hagen MD LAB BLOOD ORDERABLES Final Resul t [facility] [address] [place] [phone] * (ABNORMAL) Basic Metabolic Panel (11/27/2024 12:12 PM EDT) Sodium 142 135 - 145 mmol/L [facility] Potassium 3.3 3.3 - 5.1 mmol/L [facility] Chloride 108 96 - 108 mmol/L [facility] Carbon Dioxide 27 22 - 29 mmol/L [facility] Anion Gap 10(L) 12 - 20 [facility] Urea Nitrogen (BUN) 15 9 - 16 mg/dL [facility] Creatinine, Serum 0.73 0.5 - 1.4 mg/dL [facility] Estimated Glomerular Filt Rate >60 [facility] Comment:Chronic Kidney Disea se: Estimated GFR < 60 mL/min/1.50p4Ikbryz Kidney Disease: Estimated GFR < 15 mL/min/1.73m2 Glucose 139(H) 60 - 115 mg/dL [facility] Calcium 9.0 8.4 - 10.2 mg/dL [facility] Blood Venous blood specimen / Unknown 11/27/2024 12:12 PM EDT 11/27/2024 1:47 PM EDT us Lisa Hagen MD LAB BLOOD ORDERABLES Final Resul t [facility] [address] [place] [phone] documented in this encounter Visit Diagnoses Diagnosis Low serum potassium- Primary documented in this encounter Additional Health Concerns Assessment Noted Time PHQ-9 Depression Total Score: 0 08/10/20 24 10:16 AM EST documented as of this encounter Care Teams Temple Meat Cutter Relationship Specialty Start Date End Date Lisa Hagen MD [address] [place] [address] PCP - General Family Medicine 08/11/12 Selwyn Crowley, Vinicius [address] [place] [address] Pharmacist Internal Medicine 11/06/22 documented as of this encounter
== END 2025-07-05 15:01 | disposition home or self-care (01) ==
LOC: HO.HSM 14:32
PROVIDERS: PCP Family Medicine; Referring Provider Family Medicine; Visit Provider Registered Nurse
DX: G30.9 Alzheimer's disease, unspecified (principal); F02.83 Dementia in other diseases classified elsewhere, unspecified severity, with mood disturbance
CPT/HCPCS: 99214

== ENCOUNTER → 2025-07-05 14:31 | Outpatient (BNVA) | payer OTHER, SELFPAY | PROVIDERS: PCP Family Medicine; Referring Provider Family Medicine; Visit Provider Registered Nurse | DX: G30.9 Alzheimer's disease, unspecified (principal); F02.83 Dementia in other diseases classified elsewhere, unspecified severity, with mood disturbance | CPT/HCPCS: 99212 ==

== ENCOUNTER 2025-07-12 12:43 | Outpatient (AMB) | payer OTHER, SELFPAY ==
--- NOTE | 2025-07-12 12:45 | A.OFFVIS_ITS ---
Vital Signs 07/12/25 12:51 Height 5 ft 5 in Weight 218 lb BMI 36.3 BP 157/74 H Blood Pressure Location Rt brachial Position Sitting Pulse 66 Intake Visit Reasons: re-discuss surgery, hernia Intake Note: Patient presents for an assessment re-discuss surgery, hernia. Patient c/o: hernia on left abdomen enlarging. Denies pain, diarrhea, constipation, vomiting. Imaging: Abdomen pelvis CT~ 07-03-2025 Candy Rolling Machine Operator Required: Yes Information Interpreted: non-clinical & clinical (Korin GROSSMAN) Accompanied by: daughter Cindi Clarke Allergies clarithromycin (CLARITHROMYCIN) Allergy (Intermediate, Unverified 07/12/25 12:53) HIVES, hives/skin rash hylan G-F 20 (HYLAN G-F 20) Allergy (Intermediate, Unverified 07/12/25 12:53) HIVES/RASH, hives/skin rash lisinopril (LISINOPRIL) Allergy (Intermediate, Unverified 07/12/25 12:53) ANAPHYLAXIS Penicillin Allergy (Unknown, Uncoded 07/12/25 12:53) Unknown HPI HPI re-discuss surgery, hernia: Details: [age] year old female here for a follow-up for a periumbilical hernia for a periumbilical hernia. The daughter says that she has had this for many years. This started as a small hernia but this has increased in size over the past few years. The patient has dementia so the history mostly is from the daughter. The patient does still recognizes family members and is able to communicate with simple questions. She ambulates at home without difficulty. The daughter says that the patient sees a improvement manager because of a cardiac issue. She does not seem to complain of chest pains. The daughter also says that the patient has alternating diarrhea and constipation. I had sent her for a CAT scan to define the hernia. They are here to review the findings and has a next step in her care. [facility] Medical History (Updated 07/12/25 @ 13:17 by Deshaun Chandler MD) Periumbilical hernia Morbid obesity Osteoarthritis CHF (congestive heart failure) Alzheimer's dementia Obstructive sleep apnea PAT (paroxysmal atrial tachycardia) Hypertension Supraumbilical hernia Surgical History Hx of tubal ligation History of cholecystectomy History of appendectomy Social History Alcohol intake: never Patient Tobacco Use Status: Never used Tobacco Review of Systems Const Denies chills and Denies fever(s) Card Denies chest pain, Denies dyspnea and Denies dyspnea on exertion Resp Denies cough, Denies dyspnea and Denies dyspnea on exertion GI Denies hematochezia and Denies change in bowel habits Denies hematuria Musc Denies back pain and Denies limited range of motion Neuro Details: Has dementia Denies focal weakness and Denies convulsions Psych Denies depression and Denies mood swings Physical Exam Vital Signs: Last Vital Signs Pulse 66 07/12/25 12:51 BP 157/74 H 07/12/25 12:51 BMI result Body Mass Index 36.3 Const General: comfortable and no acute distress Nutritional Appearance: obese Orientation/consciousness: patient oriented x3 Neck Neck: Yes no lymphadenopathy Resp Auscultation: clear to auscultation bilaterally Cardio Rhythm: regular rhythm GI Other: She has a pannus, with a palpable hernia at the level of the umbilicus, about 5 cm in diameter, reducible Palpation (GI): Soft to palpation, nontender and no guarding Neuro General: patient oriented x3 Assessment & Plan Assessment & Plan (1) Periumbilical hernia: Code(s): K42.9 - Umbilical hernia without obstruction or gangrene Category: Medical Plan: Review of her CAT scan shows that she has this abdominal wall hernia at the level of the umbilicus, described to be about 4.8 cm transverse dimension. There were small bowel loops that are not obstructed with in the hernia itself. There is some diastasis of the of the rectus abdominis as well. I again had a long discussion with the patient and the daughter about the above hernia. I extensively explained the technique of repair of this ventral hernia with possible mesh placement. I reviewed the risks including but not limited to bleeding, infections, bowel injury, recurrence, postop pain, as well as the benefits and alternatives. I explained what to expect postoperatively Her daughter says that she had been cleared for surgery by the improvement manager. However, the patient herself seemed to be very hesitant about proceeding with surgery. The daughter says that she seems to be very anxious about this. I did make them aware about the small risk of acute incarceration with nonoperative treatment. The patient does not want to decide at this time. I told him that this should talk about this at home and they are free to call me they want to proceed or if they have any questions. Coding Level of Care Code Est Pt Level 3 (47493) Diagnoses Periumbilical hernia K42.9
[2025-07-12 12:51] VITALS: BP 157/74; PULSE 66; BMI 36.3
--- OUTSIDE RECORDS SUMMARY | 2025-07-12 15:50 | XMS_ITS | Clinical Summary ---
Author Organization [facility] Address [address] [facility] [address] [place] [address] Phone Care Team Providers Care Seasonal Driver Name Role Phone Lisa Hagen MD Primary Care Provider [phone] Allergies Active Allergy Reactions Criticality Noted Date [...] EDT): She was previously seen in our [place] location and is now here for ongoing care. She has PAF and is asymptomatic but is taking Xarelto without bleeding complication. 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/2025 Assessment & Plan (06/06/2025 10:49 AM EDT): She is prediabetic I went over in detail her diet both with her with an print traffic manager and her daughter PAF (paroxysmal atrial fibrillation) [...] Description 06/06/2025 10:30 AM EDT Office Visit [facility] [address], [address] [place] [address] Mckinley Herbert, Shady Muhammad Encounter [...] Info) Description 06/06/2025 Procedure Pass Echo Lab [place] [address] [address] [place] [address] 12/05/2025 9:30 AM EDT Office Visit [facility] [place] FrankelBarling [address] [place] [address], [address] [place] [address] Aline Delarosa, [address] [address] 06/06/2026 9:30 AM EDT Appointment Echo [facility] [place] [address] Mckinley Herbert, DO [address] [place] [address] 06/17/2026 9:00 AM EDT Office Visit [facility] [address] [facility], [address] [place] [address] Mckinley Herbert, DO [address] [place] [address] Health Maintenance Due Date Last Done Comments [...] patient's age to complete this topic IPV VACCINES Aged Out No longer eligi ble based on patient's age to complete this topic MENINGOCOCCAL VACCINES (ACWY) Aged Out No longer eligible based on patient's age to complete this topic MENINGOCOCCAL VACCINES (B) Aged Out N o longer eligible based on patient's age to complete this topic Medical Devices Not on file Insurance MEDICARE PART A & B [facility] MEDICARE REPLACEMENT MEDICARE PART A & B [facility] MEDICARE REPLACEMENT MEDICARE PART A & B MEDICARE PART A & B MEDICARE PART A & B O MEDICARE REPLACEMENT MEDICARE PART A & B MEDICARE PART A & B O MEDICARE REPLACEMENT MEDICARE PART A & B [facility] MEDICARE REPLACEMENT [facility] MEDICARE PART A & B [facility] MEDICARE REPLACEMENT TRUDI MENDEZ [id number] Care Teams Seasonal Driver Relationship Specialty Start Date End Date Lisa Hagen MD [address] [place] [address] PCP - General Family Medicine 01/05/22 Additional Source Comments The information contained in this document represents components of the legal health record. It is not the complete legal health record.[facility]
--- OUTSIDE RECORDS SUMMARY | 2025-07-12 15:50 | XMS_ITS | Encounter Summary ---
Author Organization [employer] Address [address] [facility] 7t [place] [address] Care Team Providers Care Risk Adjustment Specialist Name Role Phone Lisa Hagen MD Primary Care Provider [phone] Selwyn Crowley PharmD Unavailable [phone] Encounter Details Date Type Department Care Team ([facility] st Contact Info) Description 07/17/2024 Telephone [facility]ICINE 230 [place], [place] [phone] Lisa Hagen MD [address] [place], [place] [phone] Social History Tobacco Use Types Packs/Day Years [...] documented as of this encounter Care Teams Risk Adjustment Specialist Relationship Specialty Start Date End Date Lisa Hagen MD [address] [place] [address] PCP - General Family Medicine 08/11/12 Selwyn Crowley, PharmD [address] [place] [address] Pharmacist Internal Medicine 11/06/22 documented as of this encounter
--- OUTSIDE RECORDS SUMMARY | 2025-07-12 15:50 | XMS_ITS | Encounter Summary ---
Author Organization [employer] Address [address] [place] [address] [address] [address] Care Team Providers Care Grinder Set Up Operator Thread Tool Name Role Phone Lisa Hagen MD Primary Care Provider [phone] Selwyn Crowley PharmD Unavailable [phone] Encounter Details Date Type Department Care Team (Late st Contact Info) Description 08/09/2022 Orders Only [facility] [address] [place] [address] Lisa Hagen MD [address] [place] [address] [phone] Social History Tobacco Use Types Packs/Day Years [...] on filedocumented in this encounter Care Teams Grinder Set Up Operator Thread Tool Relationship Specialty Start Date End Date Lisa Hagen MD [address] [place] [address] [phone] PCP - General Family Medicine 08/11/12 Selwyn Crowley, PharmD [address] [place] [address] [phone] Pharmacist Internal Medicine 11/06/22 documented as of this encounter
--- OUTSIDE RECORDS SUMMARY | 2025-07-12 15:50 | XMS_ITS | Clinical Summary ---
Author Organization [employer] Address [address] [facility] 7t [place] [address] Care Team Providers Care Capture Manager Name Role Phone Lisa Xavier MD Primary Care Provider [phone] Selwyn Crowley PharmD Unavailable [phone] Allergies Active Allergy Reactions Criticality Noted Date [...] symptomatic - Pre-op evaluation completed by her curriculum and assessment coordinator in March 2025. - Upcoming pre-op at [...] (06/15/2025 11:09 AM EDT): - [facility] - transthoracic echocardiogram on 04/11/24. Maximum diameter of ascending aorta 43 mm - most recent echo on 04/17/2025. Maximum diameter of ascending aorta 35 mm - Next echo in 1 year - optimize risk factor management Assessment & Plan (11/17/2024 8:06 PM EDT): - Following with [facility] - Last transthoracic echocardiogram: 04/11/24. Maximum diameter of ascending aorta 43 mm - Next echo in 1 year - optimize risk factor management Assessment & Plan (08/12/2024 4:22 PM EST): - Following with [facility] - Last transthoracic echocardiogram: 04/11/24. Maximum diameter of ascending aorta 43 mm - Next echo in 1 year - optimize risk factor management Assessment & Plan (05/09/2024 5:32 AM EDT): - Following with [facility] - Last transthoracic echocardiogram: 04/11/24. 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 Bumetanide was added in Apr 2024 Graduated from [employer] - HTN Assessment & Plan (02/26/2025 10:53 AM EDT): -Goal BP < 130/80 per ACC/AHA guideline (Treatment threshold >= 130) -BP at JNC-8 goal today -co-managed with curriculum and assessment coordinator and previously our pharmacist -continue working on [...] was discontinued and metoprolol was started by curriculum and assessment coordinator in 2022. Bumetanide was added in Apr 2024 Graduated from [employer] - HTN Assessment & Plan (11/17/2024 8:06 PM EDT): -Goal BP < 130/80 per ACC/AHA guideline (Treatment threshold >= 130) -BP at JNC-8 goal today -co-managed with curriculum and assessment coordinator and previously our pharmacist -continue working on [...] was discontinued and metoprolol was started by curriculum and assessment coordinator in 2022. Bumetanide was added in Apr 2024 Graduated from [facility] - HTN Assessment & Plan (08/10/2024 6:05 AM EST): -Goal BP < 130/80 per ACC/AHA guideline (Treatment threshold >= 130) -BP at JNC-8 goal today -co-managed with curriculum and assessment coordinator and previously our pharmacist -continue working on [...] was discontinued and metoprolol was started by curriculum and assessment coordinator in 2022. Bumetanide was added in Apr 2024 Graduated from [facility] - HTN Assessment & Plan (05/15/2024 6:18 [...] and discontinuing chlorthalidone. -seen by Selwyn Crowley [facility] on 10/25/23 for CDTM - HTN Treatment [...] 25 mg daily -seen by Selwyn Crowley [facility] on 2/26/24 for CDTM - HTN Treatment [...] [facility] 25 mg [facility] - HTN Treatment [...] chl[facility] 25 mg [facility] - HTN [...] chlorthalidone 25 mg daily [facility] - HTN Previously tried amlodipine which was discontinued due to swelling, losartan was discontinued due to pt's concern about recall, lisinopril was discontinued due to cough --Follow-up in 3 months or sooner if any problem arises ERA (obstructive sleep apnea) 08/09/2022 Assessment & Plan (06/15/2025 11:23 AM EDT): - Sleep study on 06/08/22 at [facility] showed ERA. AutoPAP 8-20 cm H2O was recommended. - Seen by Dr. Cavazos on 02/03/23, [facility] gold and silver assayer. Recommended CPAP. - Patient was not interested in using CPAP Assessment & Plan (02/26/2025 10:55 AM EDT): - Sleep study on 06/08/22 at [facility] showed ERA. AutoPAP 8-20 cm H2O was recommended. - Seen by Dr. Cavazos on 02/03/23, [facility] gold and silver assayer. Recommended CPAP. - Patient was not interested in using CPAP - Will prescribe it again. Assessment & Plan (11/19/2024 4:33 PM EDT): - Sleep study on 06/08/22 at [facility] showed ERA. AutoPAP 8-20 cm H2O was recommended. - Seen by Dr. Cavazos on 02/03/23, [facility] gold and silver assayer. Recommended CPAP. - Patient was not interested in using CPAP - Will prescribe it again. Assessment & Plan (08/12/2024 4:21 PM EST): - Sleep study on 06/08/22 at [facility] showed ERA. AutoPAP 8-20 cm H2O was recommended. - Seen by Dr. Cavazos on 02/03/23, [facility] gold and silver assayer. Recommended CPAP. - Patient is not interested in using CPAP Assessment & Plan (05/15/2024 6:15 AM EDT): - Sleep study on 06/08/22 at [facility] showed ERA. AutoPAP 8-20 cm H2O was recommended. - Seen by Dr. Cavazos on 02/03/23 Assessment & Plan (10/01/2023 11:24 AM EST): - Sleep study on 06/08/22 at [facility] showed ERA. AutoPAP 8-20 cm H2O was recommended. - Seen by Dr. Cavazos on 02/03/23 - Called [facility], the office states the order was delayed, but the script has already been received by CPAP supplier Assessment & Plan (03/26/2023 6:49 AM EDT): - Sleep study on 06/08/22 at [facility] showed ERA. AutoPAP 8-20 cm H2O was recommended. - Seen by Dr. Cavazos on 02/03/23 - Called [facility], the office states the order was delayed, but the script has already been received by CPAP supplier Assessment & Plan (11/22/2022 7:13 AM EDT): Sleep study on 06/08/22 at [facility] showed ERA. AutoPAP 8-20 cm H2O was recommended. Pt does not have CPAP. Will check the status Her HALEY may improve with CPAP use Paroxysmal atrial fibrillation (CMS/HCC) 022 Assessment & Plan (06/15/2025 11:35 AM EDT): -Followed by [facility], last seen in May 2025 -Currently on [...] Plan (02/26/2025 10:54 AM EDT): -Followed by [facility] - -Currently on Rivaroxaban (Xarelto) for anticoagulation -Metoprolol for BP and rate control -Continue current medications -Most recent echo: 04/11/24 Moderate concentric LVH, Left ventricular systolic EF 50-55%, mild thickening of anterior mitral valve, normal RV and RA -Encouraged to use CPAP, but patient is not enthusiastic Assessment & Plan (11/19/2024 4:37 PM EDT): -Followed by [facility] - [id number] Score: 4 -Currently on Rivaroxaban (Xarelto) for anticoagulation -Metoprolol for BP and rate control -Continue current medications -Most recent echo: 04/11/24 Moderate concentric LVH, Left ventricular systolic EF 50-55%, mild thickening of anterior mitral valve, normal RV and RA -Encouraged to use CPAP, but patient is not enthusiastic Assessment & Plan (08/10/2024 6:12 AM EST): -Followed by [facility] -[id number] Score: 4 -Currently on Rivaroxaban (Xarelto) for anticoagulation -Metoprolol for BP and rate control -Continue current medications -Most recent echo: 04/11/24 Moderate concentric LVH, Left ventricular systolic EF 50-55%, mild thickening of anterior mitral valve, normal RV and RA -Encouraged to use CPAP, but patient is not enthusiastic Assessment & Plan (05/15/2024 6:17 AM EDT): -Followed by [facility] -Currently on Rivaroxaban (Xarelto) for anticoagulation -Diltiazem for BP and rate control -Continue current medications -Most recent echo: 04/11/24 Moderate concentric LVH, Left ventricular systolic EF 50-55%, mild thickening of anterior mitral valve, normal RV and RA -Encouraged to use CPAP, but patient is not enthusiastic Assessment & Plan (01/18/2024 3:39 PM EDT): -Followed by [facility] -Currently on Rivaroxaban (Xarelto) for anticoagulation -Diltiazem for BP and rate control -Continue current medications -Encouraged to use CPAP once she receives the supply Assessment & Plan (10/01/2023 11:26 AM EST): -Followed by [facility] -Currently on Rivaroxaban (Xarelto) for anticoagulation -Diltiazem for BP and rate control -Continue current medications -Encouraged to use CPAP once she receives the supply Assessment & Plan (03/26/2023 6:51 AM EDT): -Followed by Dr. Palomo at [facility] on 03/16/22. -Currently on Rivaroxaban (Xarelto) for anticoagulation -Diltiazem for BP and rate control -Continue current medications -Encouraged to use CPAP once she receives the supply Assessment & Plan (11/17/2022 2:50 PM EDT): Completed Stress-Test and Echocardiogram -Followed by Dr. Palomo at [facility] on 03/16/22. -Pt was found to have paroxysmal atrial fibrillation and was started on Rivaroxaban (Xarelto) -Dr. Palomo ordered a Sleep Study Alzheimer's dementia ([facility]) 08/09/2022 Assessment & Plan (06/15/2025 11:23 AM [...] her family members are primary caregivers / front end manager. - PCP called Dr. Leavitt's office and [...] family members would like to have more SERVICE CLERK hours because patient currently has 17 hours per week, and it is not adequate to take care of the patient. She is alone when SERVICE CLERK leaves. Patient will benefit from more SERVICE CLERK services to prevent social isolation and to [...] family members would like to have more SERVICE CLERK hours because patient currently has 17 hours per week, and it is not adequate to take care of the patient. She is alone when SERVICE CLERK leaves. Patient will benefit from more SERVICE CLERK services to prevent social isolation and to [...] family members would like to have more SERVICE CLERK hours because patient currently has 17 hours per week, and it is not adequate to take care of the patient. She is alone when SERVICE CLERK leaves. Patient will benefit from more SERVICE CLERK services to prevent social isolation and to [...] Department Care Team Description 07/03/2025 Orders Only [facility] External Provider, [facility] 06/22/2025 2:30 PM EDT Office Visit [facility] [address] [place] [phone] Karina Heller MD Diabetes 1.5, managed as type 2 (HCC) (Primary Dx); Preoperative clearance 06/22/2025 Travel 06/21/2025 Telephone [facility] [address] [place] [phone] Lisa Xavier MD CHARTPREP 06/11/2025 11:15 AM EDT Office Visit [address] [address] Lisa Xavier MD Primary hypertension (Primary Dx); Impaired fasting glucose; Dyslipidemia; Chronic heart failure with preserved ejection fraction (HFpEF) ([facility]); Ascending aorta dilation (CMS/HCC); Paroxysmal atrial fibrillation (CMS/HCC) ([facility]); Nonrheumatic aortic valve insufficiency; Class 1 obesity due to excess calories with serious comorbidity and body mass index (BMI) of 33.0 to 33.9 in adult; Ventral hernia without obstruction or gangrene; Primary osteoarthritis of both knees; Current moderate episode of major depressive disorder without prior episode (CMS/HCC) ([facility]); Alzheimer's dementia, unspecified dementia severity, unspecified timing of dementia onset, unspecified whether behavioral, psychotic, or mood disturbance or anxiety (CMS/HCC) ([facility]); ERA (obstructive sleep apnea) 06/11/2025 Travel 06/08/2025 Telephone [facility] [address] [place] [phone] Lisa Xavier MD chartprep 05/29/[address] [address] Lisa Xavier MD Appointment Request 05/29/[address] [address] Lisa Xavier MD 05/24/[address] [phone] Lisa Xavier MD Pre-op Visit 04/25/[address] [address] Lisa Xavier MD may recall from Last [...] PM EST Narrative 07/04/2025 8:50 AM EST [place] [address] [address] Scan Report Signed Patient: Daniela Olvera MR#: [id number] : 1950 Acct:[id number] Age/Sex: 74 / F ADM Date: 07/03/25 Loc: HO.CT Attending Dr: Deshaun Chandler MD Ordering Physician: Deshaun Chandler MD Date of Service: 07/03/25 Procedure(s): CT abdomen pelvis wo IV con Accession Number(s): [id number] cc: Deshaun Chandler MD; Lisa Xavier MD Report Number: [id number]: Total DLP = 727.00 mGy-cm Reason for [...] 07/04/25 0847 DD/ 24 TD/TT: 07/03/25 1648 [employer] Consultant: LC Procedure Note Donotuseinterpreter, Image - 07/04/[address] [place] [address] [address] Scan Report Signed Patient: Daniela Olvera MMR#: [id number] : 1950cct:[id number] Age/Sex: 74 / FADM Date: 07/03/25 Loc: HO.CT Attending Dr: Deshaun Chandler MD Ordering Physician: Deshaun Chandler MD Date of Service: 07/03/25 Procedure(s): CT abdomen pelvis wo IV con Accession Number(s): [id number] cc: Deshaun Chandler MD; Lisa Xavier MD Report Number: [id number]: Total DLP = 727.00 mGy-cm Reason for [...] by: Joe Watt MD 07/04/2025 08:47 AM [facility] Dictated By: Joe Watt MD Signed By: <Electronically signed by Joe Watt MD in OV> 07/04/25 0847 DD/ 1625 TD/TT: 07/03/25 1648 [employer] Consultant: [facility] External Provider IMG CT PROCEDURES Final [...] 11:39 AM EDT) Triglycerides 89 <150 mg/dL [facility] Comment:Desirable Triglyceri de: less than 150 mg/dLBorderline High Triglyceride 150-199 mg/dLHigh Triglyceride: 200-499 mg/dLVery High Triglyceride: greater than or equal to 5OO mg/dL Cholesterol 118 <200 mg/dL [facility] Comment:Desirable Cholestero l: less than 200 mg/dLBorderline High Cholesterol: 200-239 mg/dLHigh Cholesterol: greater than 239 mg/dL LDL Cholesterol Calculated 45 <100 mg/dL [facility] Comment:Desirable LDL: less than 100 mg/dLNear Optimal/Above Optimal LDL: 110- 129 mg/dLBorderline High LDL: 130-159 mg/dLHigh LDL: 160-189 mg/dLVery High LDL: greater than or equal to 190 mg/dL HDL Cholesterol 56 >40 mg/dL [facility] Comment:Desirable HDL: great er than 40 mg/dL Note: This HDL assay may give artificially low results in patients with liver disease. Blood 11/16/2024 11:3 9 AM EDT 11/16/2024 1:04 PM EDT us Lisa Xavier MD LAB BLOOD ORDERABLES Final Resul t [facility] [address] [place] [address] [phone] * BI Mammogram Screening Tomosynthesis Bilateral (01/13/2024 4:10 PM EDT) Anatomical Region Laterality Modality Breast Bilateral Mammography 01/13/2024 4:10 PM EDT Narrative 02/14/2024 7:45 AM EDT [address] [place] [address] Mammography Report Signed Patient: Daniela Olvera MR#: [id number] : 1950 Acct:[id number] Age/Sex: 73 / F ADM Date: 01/13/24 Loc: ALEJA Attending Dr: Lisa Xavier MD Ordering Physician: Lisa Xavier MD Results: 1Negative Date of Service: 01/13/24 Follow Up: 1 Year From Orig inal Mammogram Procedure(s): MM tomosynthesis screening BI Accession Number(s): [id number] cc: Lisa Xavier MD EXAMINATION: MM SCREENING [...] MD in OV> 02/14/24741 DD/ 09 TD/TT: [employer] Consultant: Procedure Note Donotuseinterpreter, Image - 02/14/2024 [facility] [address] [place], [place] [address] Mammography Report Signed Patient: Daniela Olvera MMR#: [id number] : 1950cct:[id number] Age/Sex: 73 / FADM Date: 01/13/24 Loc: ALEJA Attending Dr: Lisa Xavier MD Ordering Physician: Lisa Xavier MDResults: 1Negative Date of Service: 01/13/24Follow Up: 1 Year From Orig inal Mammogram Procedure(s): MM tomosynthesis screening BI Accession Number(s): [id number] cc: Lisa Xavier MD EXAMINATION: MM SCREENING [...] MD in OV> 02/14/24741 DD/ 1610 TD/TT: [employer] Consultant: Lisa Xavier MD IMG BI PROCEDURES Final Result * Colonoscopy (10/08/2017) Colonoscopy Normal Normal [facility] Unassigned Pcp HEALTH MAINTENANCE Final Result from Last 3 Months or Most Recently Relevant to Health Maintenance Insurance [facility] ASSISTED OPTIONS (O D-SNP) Care Teams Capture Manager Relationship Specialty Start Date End Date Lisa Xavier MD [address] [place] [address] PCP - General Family Medicine 08/11/12 Selwyn Crowley, MazrenaD [address] [place] [address] Pharmacist Internal Medicine 11/06/22
--- OUTSIDE RECORDS SUMMARY | 2025-07-12 15:50 | XMS_ITS | Encounter Summary ---
Author Organization [employer] Address [address] [place] [address] [address] [place] [address] Care Team Providers Care General Office Clerk Name Role Phone Lisa Hagen MD Primary Care Provider [phone] Selwyn Crowley PharmD Unavailable [phone] Encounter Details Date Type Department Care Team ([facility] st Contact Info) Description 10/23/[address] [facility] [address] [place] [address] [phone] Lisa Hagen MD [address] [place], [place] [phone] Primary hypertension (Primary Dx); Mild cognitive impairment [...] stated documented in this encounter Care Teams General Office Clerk Relationship Specialty Start Date End Date Lisa Hagen MD [address] [place] [address] [phone] PCP - General Family Medicine 08/11/12 Selwyn Crowley, PharmD [address] [place] [phone] Pharmacist Internal Medicine 11/06/22 documented as of this encounter
--- OUTSIDE RECORDS SUMMARY | 2025-07-12 15:50 | XMS_ITS | Clinical Summary ---
Author Organization [facility] Address [address] [place] [address] Phone Care Team Providers Care Emergency Care Tech Name Role Phone Lisa Hagen MD Primary Care Provider [phone] Allergies No known active allergies Encounters Date Type Department Care Team Description 05/28/2025 11:00 AM EDT Consult Orthopedic Surgery [facility] [address] [facility] 250 [place] [phone] Randolph Ayers DPM Venous insufficiency (Primary Dx); [...] 08/27/2025 3:30 PM EST Consult Vascular Surgery [facility] 300 [facility] [address] [place] [phone] Keiko Carlos PA 300 [facility] [address] [place] [address] Health Maintenance Due Date Last Done Comments [...] patient's age to complete this topic [place] [address] [address] [place] [address] MEDICARE Member Subscriber Plan / Payer (Ef fective 2022-Present) Name:Daniela Edwards Relation to Subscriber:Self Name:Daniela Olvera Payer ID:[id number] Group ID:[id number] Type:Not on file Address: [address] [facility] [place] [address] Care Teams Emergency Care Tech Relationship Specialty Start Date End Date Lisa Hagen MD [address] [place] [phone] PCP - General Family Medicine 03/13/25
--- OUTSIDE RECORDS SUMMARY | 2025-07-12 15:50 | XMS_ITS | Encounter Summary ---
Author Organization [employer] Address [address] [facility] 7t [place] [address] Care Team Providers Care Housekeeper Cleaning Cooking Name Role Phone Lisa Hagen MD Primary Care Provider [phone] Selwyn Crowley PharmD Unavailable [phone] Reason for Visit * Reason Onset Date Comments Pre-op Visit 05/24/2025 Encounter Details Date Type Department Care Team (Late st Contact Info) Description 05/24/2025 Telephone [facility] [address] [place] [address] Lisa Hagen MD [address] [place], [place] [phone] Pre-op Visit Social History Tobacco Use Types [...] Surgeon's name: Dr Deshaun Chandler Facility name: [facility] Gernal Surgery Surgeon's office number: [phone] Surgeon's office fax number: [phone] Contact name (person you spoke with): Rita [...] documented as of this encounter Care Teams Housekeeper Cleaning Cooking Relationship Specialty Start Date End Date Lisa Hagen MD [address] [place] [address] PCP - General Family Medicine 08/11/12 Selwyn Crowley PharmD [address] [place] [address] Pharmacist Internal Medicine 11/06/22 documented as of this encounter
--- OUTSIDE RECORDS SUMMARY | 2025-07-12 15:50 | XMS_ITS | Encounter Summary ---
Author Organization [employer] Address [address] [facility] 7t [place] [address] Care Team Providers Care Submarine Advisory Team Watch Officer Name Role Phone Lisa Hagen MD Primary Care Provider [phone] Selwyn Crowley PharmD Unavailable [phone] Encounter Details Date Type Department Care Team ([facility] st Contact Info) Description 11/27/2024 Orders Only [facility] [address] [place], [place] [phone] Lisa Hagen MD [address] [place], [place] [phone] Low serum potassium (Primary Dx) Social History [...] EDT) Magnesium 2.3 1.6 - 2.6 mg/dL [facility] Blood Venous blood specimen / Unknown 11/27/2024 12:12 PM EDT 11/27/2024 1:47 PM EDT us Lisa Hagen MD LAB BLOOD ORDERABLES Final Resul t [facility] [address] [place] [phone] * (ABNORMAL) Basic Metabolic Panel (11/27/2024 12:12 PM EDT) Sodium 142 135 - 145 mmol/L [facility] Potassium 3.3 3.3 - 5.1 mmol/L [facility] Chloride 108 96 - 108 mmol/L [facility] Carbon Dioxide 27 22 - 29 mmol/L [facility] Anion Gap 10(L) 12 - 20 [facility] Urea Nitrogen (BUN) 15 9 - 16 mg/dL [facility] Creatinine, Serum 0.73 0.5 - 1.4 mg/dL [facility] Estimated Glomerular Filt Rate >60 [facility] Comment:Chronic Kidney Disea se: Estimated GFR < 60 mL/min/1.01a5Kymqpx Kidney Disease: Estimated GFR < 15 mL/min/1.73m2 Glucose 139(H) 60 - 115 mg/dL [facility] Calcium 9.0 8.4 - 10.2 mg/dL [facility] Blood Venous blood specimen / Unknown 11/27/2024 12:12 PM EDT 11/27/2024 1:47 PM EDT us Lisa Hagen MD LAB BLOOD ORDERABLES Final Resul t [facility] [address] [place] [phone] documented in this encounter Visit Diagnoses Diagnosis Low serum potassium- Primary documented in this encounter Additional Health Concerns Assessment Noted Time PHQ-9 Depression Total Score: 0 08/10/20 24 10:16 AM EST documented as of this encounter Care Teams Submarine Advisory Team Watch Officer Relationship Specialty Start Date End Date Lisa aHgen MD [address] [place] [address] PCP - General Family Medicine 08/11/12 Selwyn Crowley, Vinicius [address] [place] [address] Pharmacist Internal Medicine 11/06/22 documented as of this encounter
== END 2025-07-12 13:15 | disposition home or self-care (01) ==
LOC: HO.HGS 12:43
PROVIDERS: PCP Family Medicine; Visit Provider Surgery
DX: K42.9 Umbilical hernia without obstruction or gangrene (principal)
CPT/HCPCS: 99213

== ENCOUNTER → 2025-07-12 12:43 | Outpatient (BNVA) | payer OTHER, SELFPAY | PROVIDERS: PCP Family Medicine; Visit Provider Surgery | DX: K42.9 Umbilical hernia without obstruction or gangrene (principal) | CPT/HCPCS: 99212 ==